=== PATIENT | female | born 1975 | race Hispanic/Latino ===

== ENCOUNTER 2018-05-21 14:24 | Emergency (ER) | payer SELFPAY ==
[2018-05-21] MEDS ORDERED: HYDROCODONE/APAP 5/325 MG TAB ONE (14:51)
[2018-05-21] MEDS ORDERED: ACETAMINOPHEN 325 MG TABLET ONE (14:52)
[2018-05-21 15:04] LABS: Urine Blood 1+ (NEG); Urine Glucose NEGATIVE (NEG); Urine Protein 1+ (NEG)
[2018-05-21 15:13] LABS: Urine Bacteria <20 /HPF (<20); Urine Culture Reflex Order NOT NEEDED; Urine RBC <5 /HPF (NONE SEEN)
[2018-05-21] MEDS ORDERED: NA CHLORIDE 0.9% 1,000 ML ONE (15:31)
[2018-05-21] MEDS ORDERED: DEXAMETHASONE 10 MG/ML VIAL ONE (15:41)
[2018-05-21] MEDS ORDERED: PEN G BENZ LA 1.2MU/2ML SYRINGE IM ONE (15:42)
[2018-05-21] MEDS ORDERED: ONDANSETRON 4 MG/2 ML VIAL ONE (15:50)
--- NOTE | 2018-05-21 17:53 | ER ---
Nurse's Notes [facility] Name: Gifty Singletary Age: 43 yrs Sex: Female : 1975 Arrival Date: 05/21/2018 Time: 14:27 Bed 6 Private MD: None, None Diagnosis: Streptococcal tonsillitis;Dehydration Presentation: 05/21 14:36 Presenting complaint: Patient states: I have had a really had sore throat, back pain, la1 headache, dry mouth, and nausea since yesterday. Transition of care: patient was not received from another setting of care. Onset of symptoms was May 21, 2018. Risk Assessment: Do you want to hurt yourself or someone else? Patient reports no desire to harm self or others. Initial Sepsis Screen: Does the patient meet any 2 criteria?. Care prior to arrival: None. 14:36 Method Of Arrival: Ambulatory la1 14:36 Acuity: ODILIA 2 la1 14:50 Initial Sepsis Screen: Does the patient have a suspected source of infection? Yes: sv Other: sore throat. Historical: - Allergies: 14:35 No Known Allergies; la1 - PMHx: 14:35 Asthma; la1 - Immunization history:: Adult Immunizations up to date. - Social history:: Smoking status: Patient/guardian denies using tobacco. - Ebola Screening: : No symptoms or risks identified at this time. - Family history:: not pertinent. - Hospitalizations: : No recent hospitalization is reported. Screenin:50 Abuse screen: Denies threats or abuse. Denies injuries from another. Nutritional sv screening: No deficits noted. Tuberculosis screening: No symptoms or risk factors identified. Fall Risk None identified. Assessment: 14:50 General: Appears in no apparent distress. uncomfortable, obese, well developed, sv Behavior is calm, cooperative, appropriate for age. Pain: Complains of pain in left aspect of posterior pharynx and right aspect of posterior pharynx Pain currently is 5 out of 10 on a pain scale. Neuro: Level of Consciousness is awake, alert, obeys commands, Oriented to person, place, time, situation, Moves all extremities. Full function Gait is steady, Speech is normal. Respiratory: Respiratory effort is even, unlabored, Respiratory pattern is regular, symmetrical. EENT: Oral mucosa is moist. Throat has patchy exudate has enlarged tonsils bilaterally. Derm: Skin temperature is hot. 15:41 Reassessment: Patient appears in no apparent distress at this time. Patient and/or sv family updated on plan of care and expected duration. Pain level reassessed. Patient is alert, oriented x 3, equal unlabored respirations, skin warm/dry/pink. GI: Reports nausea. 15:57 Reassessment: Patient appears in no apparent distress at this time. Patient and/or sv family updated on plan of care and expected duration. Pain level reassessed. Patient is alert, oriented x 3, equal unlabored respirations, skin warm/dry/pink. GI: Patient currently denies nausea. 17:30 Reassessment: Patient appears in no apparent distress at this time. Patient and/or jl7 family updated on plan of care and expected duration. Pain level reassessed. Patient is alert, oriented x 3, equal unlabored respirations, skin warm/dry/pink. Vital Signs: 14:35 Pulse 137; Resp 18; Temp 103.3(O); Pulse Ox 99% on R/A; Weight 108.86 kg; Height 5 ft. la1 3 in. (160.02 cm); 14:37 BP 133 / 85; la1 15:56 BP 123 / 55; Pulse 104; Resp 20; Temp 99.9(O); Pulse Ox 94% on R/A; sv 18:13 BP 125 / 80; Pulse 90; Resp 16 S; Temp 98.7(O); Pulse Ox 99% on R/A; jl7 14:35 Body Mass Index 42.51 (108.86 kg, 160.02 cm) la1 ED Course: 14:27 Patient arrived in ED. mr 14:27 None, None is Private Physician. mr 14:35 Arm band placed on left wrist. la1 14:37 Triage completed. la1 14:41 Meliton Mendieta MD is Attending Physician. rn 14:45 Diane Cruz, SHAHID is Primary Nurse. sv 14:50 Patient has correct armband on for positive identification. Bed in low position. Call sv light in reach. Door closed. Head of bed elevated. 14:54 EKG done, by java technical architect. reviewed by Meliton Mendieta MD. dt2 15:30 Inserted saline lock: 20 gauge in right antecubital area, using aseptic technique. sv Flushed right antecubital with 5 ml normal saline. 18:13 No provider procedures requiring assistance completed. IV discontinued, intact, jl7 bleeding controlled, No redness/swelling at site. Pressure dressing applied. Administered Medications: 14:45 Drug: [place] 5 mg-325 mg 1 tabs Route: PO; la1 15:24 Follow up: Response: No adverse reaction sv 14:45 Drug: Tylenol 650 mg Route: PO; la1 15:24 Follow up: Response: No adverse reaction sv 15:30 Drug: NS 0.9% 1000 ml Route: IV; Rate: 1000 ml; Site: right antecubital; sv 16:30 Follow up: IV Status: Completed infusion jl7 15:35 Drug: Bicillin L-A 1.2 million units Route: IM; Site: left gluteus; sv 16:00 Follow up: Response: No adverse reaction jl7 15:35 Drug: Decadron - Dexamethasone 10 mg Route: IVP; Site: right antecubital; sv 16:00 Follow up: Response: No adverse reaction 7 15:43 Drug: Zofran 4 mg Route: IVP; Site: right antecubital; sv 16:15 Follow up: Response: No adverse reaction; Nausea is decreased jl7 Outcome: 17:52 Discharge ordered by . rn 18:13 Discharged to home ambulatory. jl7 18:13 Condition: stable 18:13 Discharge instructions given to patient, Instructed on discharge instructions, follow up and referral plans. Demonstrated understanding of instructions, follow-up care. 18:15 Patient left the ED. jl7 Signatures: Diane Cruz RN RN sv Rivera, Mary mr Nieto, Roman, MD MD rn Attema, Lee, RN RN la1 Leal, Jahala, RN RN jl7 Teague, Danielle dt2
--- NOTE | 2018-05-21 17:53 | EDPHYS ---
Physician Documentation [facility] Name: Gifty Singletary Age: 43 yrs Sex: Female : 1975 Arrival Date: 05/21/2018 Time: 14:27 Bed 6 Private MD: None, None ED Physician Meliton Mendieta HPI: 05/21 14:49 This 43 yrs old Female presents to ER via Ambulatory with complaints of Flu rn Symptoms. 14:49 The patient presents with sore throat. The patient describes throat pain as dry, raw, rn scratchy. Onset: The symptoms/episode began/occurred yesterday. Severity of symptoms: At their worst the symptoms were moderate, in the emergency department the symptoms are unchanged. Modifying factors: The symptoms are alleviated by nothing, the symptoms are aggravated by swallowing. Associated signs and symptoms: Pertinent positives: fever, flu-like symptoms, rhinorrhea, Sore throat. The patient has not experienced similar symptoms in the past. The patient has not recently seen a physician. REports began yesterday with fever, sore throat, runny nose, chills, myalgias, not eating/drinking because throat feels raw. . Historical: - Allergies: 14:35 No Known Allergies; la1 - PMHx: 14:35 Asthma; la1 - Immunization history:: Adult Immunizations up to date. - Social history:: Smoking status: Patient/guardian denies using tobacco. - Ebola Screening: : No symptoms or risks identified at this time. - Family history:: not pertinent. - Hospitalizations: : No recent hospitalization is reported. ROS: 14:49 Constitutional: + fever/chills Eyes: Negative for injury, pain, redness, and discharge, turning sander tender: + sore throat and runny nose Neck: + sore throat Cardiovascular: Negative for chest pain, edema, Respiratory: + cough Abdomen/GI: Negative for abdominal pain, vomiting, diarrhea, and constipation, MS/Extremity: Negative for injury and deformity, Skin: Negative for injury, rash, and discoloration, Neuro: Negative for weakness, numbness, tingling, and seizure. Exam: 14:49 Constitutional: This is a well developed, well nourished patient who is awake, alert, rn and in no acute distress. Ambulatory to room and bathroom. Head/Face: Normocephalic, atraumatic. Eyes: Pupils equal round and reactive to light, extra-ocular motions intact. Lids and lashes normal. Conjunctiva and sclera are non-icteric and not injected. Cornea within normal limits. Periorbital areas with no swelling, redness, or edema. ENT: + pharyngeal erythema with tonsillar swelling and exudate, no stridor, + dry MM. Neck: Trachea midline, Supple, full range of motion without nuchal rigidity, or vertebral point tenderness. No Meningismus. + tender bilateral cervical LAD Cardiovascular: tachycardic, regular, normal S1 and S2. No pulse deficits. Respiratory: Lungs have equal breath sounds bilaterally, clear to auscultation Neuro: Awake and alert, GCS 15, oriented to person, place, time, and situation. Cranial nerves II-XII grossly intact. Motor strength 5/5 in all extremities. Sensory grossly intact. Cerebellar exam normal. Normal gait. Vital Signs: 14:35 Pulse 137; Resp 18; Temp 103.3(O); Pulse Ox 99% on R/A; Weight 108.86 kg; Height 5 ft. la1 3 in. (160.02 cm); 14:37 BP 133 / 85; la1 15:56 BP 123 / 55; Pulse 104; Resp 20; Temp 99.9(O); Pulse Ox 94% on R/A; sv 18:13 BP 125 / 80; Pulse 90; Resp 16 S; Temp 98.7(O); Pulse Ox 99% on R/A; jl7 14:35 Body Mass Index 42.51 (108.86 kg, 160.02 cm) la1 MDM: 14:41 Patient medically screened. rn 17:51 Differential diagnosis: group A strep tonsillitis, influenza, laryngitis, pharyngitis. rn Data reviewed: vital signs, nurses notes, lab test result(s), and as a result, I will discharge patient. Counseling: I had a detailed discussion with the patient and/or guardian regarding: the historical points, exam findings, and any diagnostic results supporting the discharge/admit diagnosis, lab results, the need for outpatient follow up, to return to the emergency department if symptoms worsen or persist or if there are any questions or concerns that arise at home. Response to treatment: the patient's symptoms have markedly improved after treatment, and as a result, I will discharge patient. Special discussion: I discussed with the patient/guardian in detail that at this point there is no indication for admission to the hospital. It is understood, however, that if the symptoms persist or worsen the patient needs to return immediately for re-evaluation. 05/21 14:37 Order name: Strep; Complete Time: 15:23 snw 05/21 14:37 Order name: Flu; Complete Time: 15:23 snw 05/21 14:37 Order name: Urine Culture snw 05/21 14:37 Order name: Urine Microscopic Only; Complete Time: 15:23 snw 05/21 14:53 Order name: Urine Dipstick--Ancillary (enter results); Complete Time: 15:23 lt1 05/21 14:54 Order name: Urine --Ancillary (enter results); Complete Time: 15:23 lt1 05/21 14:37 Order name: Urine Dipstick-Ancillary (obtain specimen); Complete Time: 15:24 snw 05/21 14:41 Order name: EKG; Complete Time: 14:42 hb 05/21 14:41 Order name: EKG - Nurse/Tech; Complete Time: 15:24 hb 05/21 14:47 Order name: IV Start; Complete Time: 15:45 rn Administered Medications: 14:45 Drug: [place] 5 mg-325 mg 1 tabs Route: PO; la1 15:24 Follow up: Response: No adverse reaction sv 14:45 Drug: Tylenol 650 mg Route: PO; la1 15:24 Follow up: Response: No adverse reaction sv 15:30 Drug: NS 0.9% 1000 ml Route: IV; Rate: 1000 ml; Site: right antecubital; sv 16:30 Follow up: IV Status: Completed infusion jl7 15:35 Drug: Bicillin L-A 1.2 million units Route: IM; Site: left gluteus; sv 16:00 Follow up: Response: No adverse reaction jl7 15:35 Drug: Decadron - Dexamethasone 10 mg Route: IVP; Site: right antecubital; sv 16:00 Follow up: Response: No adverse reaction jl7 15:43 Drug: Zofran 4 mg Route: IVP; Site: right antecubital; sv 16:15 Follow up: Response: No adverse reaction; Nausea is decreased jl7 Disposition: 05/21/18 17:52 Discharged to Home. Impression: Streptococcal tonsillitis, Dehydration. - Condition is Stable. - Discharge Instructions: Dehydration, Adult, Strep Throat. - Work release form, Medication Reconciliation Form, Thank You Letter, Antibiotic Education, Prescription Opioid Use form. - Follow up: Private Physician; When: As needed; Reason: Recheck today's complaints, Re-evaluation by your physician. - Problem is new. - Symptoms have improved. Signatures: Dispatcher [employer] EDMS Diane Cruz, RN RN Ana Laura Hou, ETL MANAGER-C ETL MANAGER-Csnw Meliton Mendieta MD MD rn Attema, Zheng RN RN la1 Nadja Pro, RN RN hb Shana Richardson, RN RN jl7 Corrections: (The following items were deleted from the chart) 17:52 17:52 05/21/2018 17:52 Discharged to Home. Impression: Streptococcal tonsillitis. rn Condition is Stable. Forms are Work release form, Medication Reconciliation Form, Thank You Letter, Antibiotic Education, Prescription Opioid Use. Follow up: Private Physician; When: As needed; Reason: Recheck today's complaints, Re-evaluation by your physician. Problem is new. Symptoms have improved. rn 18:15 17:52 05/21/2018 17:52 Discharged to Home. Impression: Streptococcal tonsillitis; jl7 Dehydration. Condition is Stable. Forms are Work release form, Medication Reconciliation Form, Thank You Letter, Antibiotic Education, Prescription Opioid Use. Follow up: Private Physician; When: As needed; Reason: Recheck today's complaints, Re-evaluation by your physician. Problem is new. Symptoms have improved. rn
--- NOTE | 2018-05-21 18:05 | EKG ---
Test Date: 2018-05-21 Test Time: 14:46:34 Ug Designer: LAMINE MEASUREMENT RESULTS: Intervals: Rate: 117 VA: 136 QRSD: 76 QT: 308 QTc: 429 [place]: P: 59 VA: 136 QRS: -11 T: 55 INTERPRETIVE STATEMENTS: Sinus tachycardia Otherwise normal ECG No previous ECG available for comparison Electronically Signed On 05-21-18 18:04:43 ELECTRICIAN MACHINE SHOP by Efe Benoit
== END 2018-05-21 18:15 | disposition home or self-care (01) ==
LOC: ER 14:24
DX: J03.00 Acute streptococcal tonsillitis, unspecified (principal); E86.0 Dehydration
CPT/HCPCS: 81003; 81015; 81025; 87081; 87086; 87088; 87804; 93005; 96361; 96372; 96374; 96375; 99284; J0561; J1100; J2405; J7030

== ENCOUNTER 2018-07-02 19:22 | Emergency (ER) | payer SELFPAY ==
--- OUTSIDE RECORDS SUMMARY | 2018-07-02 19:23 | XMS REPORT ---
:1975 Author [facility] Address [address] [place] [address] Dr. Mike. [address] [place] [id number] Care Team Providers Name Role Phone Unavailable Unavailable Unavailable Problems This patient has no known problems. Allergies, Adverse Reactions, Alerts This patient has no known allergies or adverse reactions. Medications This patient has no known medications.
--- NOTE | 2018-07-02 20:37 | RAD REPORT ---
EXAM DESCRIPTION: RAD - Chest Pa And Lat (2 Views) - 07/02/2018 8:22 pm CLINICAL HISTORY: CHEST PAIN Chest pain. COMPARISON: <Comparisons> FINDINGS: The lungs are clear. The heart is normal in size. No displaced fractures. IMPRESSION: No acute or concerning finding suspected.
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
[2018-07-02] MEDS ORDERED: HYDROCODONE/APAP 5/325 MG TAB ONE (21:28)
[2018-07-02] MEDS ORDERED: CYCLOBENZAPRINE 10 MG TAB ONE (21:28)
[2018-07-02] MEDS ORDERED: IBUPROFEN 200 MG TAB PO ONE (21:28)
== END 2018-07-02 21:31 | disposition home or self-care (01) ==
LOC: ER 19:22
DX: S29.011A Strain of muscle and tendon of front wall of thorax, initial encounter (principal); V49.40XA Driver injured in collision with unspecified motor vehicles in traffic accident, initial encounter; J45.909 Unspecified asthma, uncomplicated
CPT/HCPCS: 71046; 99284

== ENCOUNTER 2019-01-08 14:17 | Emergency (ER) | payer SELFPAY ==
--- OUTSIDE RECORDS SUMMARY | 2019-01-08 14:20 | XMS REPORT ---
:1975 [facility] Address [address] [place] [address] Dr. Sepulveda [address] [place] [id number] Care Team Providers Name Role Phone Unavailable Unavailable Unavailable Problems This patient has no known problems. Allergies, Adverse Reactions, Alerts This patient has no known allergies or adverse reactions. Medications This patient has no known medications.
--- NOTE | 2019-01-08 14:47 | EDPHYS ---
Physician Documentation [facility] Name: Gifty Singletary Age: 43 yrs Sex: Female : 1975 Arrival Date: 01/08/2019 Time: 14:23 Bed 10 Private MD: ED Physician Vineet Reed HPI: 01/08 14:56 This 43 yrs old Female presents to ER via Ambulatory with complaints of Ear kb Problem. 14:56 The patient presents with a fullness, hearing loss. The complaints affect the right kb ear. Onset: The symptoms/episode began/occurred this morning. Modifying factors: The symptoms are alleviated by nothing, the symptoms are aggravated by nothing. Associated signs and symptoms: The patient has no apparent associated signs or symptoms. Severity of symptoms: At their worst the symptoms were moderate in the emergency department the symptoms are unchanged. The patient has experienced a previous episode, last week. The patient has not recently seen a physician. Pt reports she woke up with decreased hearing and fullness to right ear. This happened last week as well, but cleared up on its own. Has used q-tips trying to clean out her ear with no relief. Historical: - Allergies: 14:26 No Known Allergies; la1 - PMHx: 14:26 Asthma; la1 - Immunization history:: Adult Immunizations up to date. - Social history:: Smoking status: Patient/guardian denies using tobacco. - Ebola Screening: : No symptoms or risks identified at this time. ROS: 14:54 Constitutional: Negative for fever, chills, and weight loss, Neck: Negative for injury, kb pain, and swelling, Cardiovascular: Negative for chest pain, palpitations, and edema, Respiratory: Negative for shortness of breath, cough, wheezing, and pleuritic chest pain, Abdomen/GI: Negative for abdominal pain, nausea, vomiting, diarrhea, and constipation, MS/Extremity: Negative for injury and deformity, Skin: Negative for injury, rash, and discoloration, Neuro: Negative for headache, weakness, numbness, tingling, and seizure. 14:54 ENT: Positive for fullness/decreased hearing right ear, Negative for drainage from ear(s), ear pain. Exam: 14:54 Constitutional: This is a well developed, well nourished patient who is awake, alert, kb and in no acute distress. Head/Face: Normocephalic, atraumatic. Neck: Trachea midline, no thyromegaly or masses palpated, and no cervical lymphadenopathy. Supple, full range of motion without nuchal rigidity, or vertebral point tenderness. No Meningismus. Chest/axilla: Normal chest wall appearance and motion. Nontender with no deformity. No lesions are appreciated. Cardiovascular: Regular rate and rhythm with a normal S1 and S2. No gallops, murmurs, or rubs. Normal PMI, no JVD. No pulse deficits. Respiratory: Lungs have equal breath sounds bilaterally, clear to auscultation and percussion. No rales, rhonchi or wheezes noted. No increased work of breathing, no retractions or nasal flaring. Abdomen/GI: Soft, non-tender, with normal bowel sounds. No distension or tympany. No guarding or rebound. No evidence of tenderness throughout. Skin: Warm, dry with normal turgor. Normal color with no rashes, no lesions, and no evidence of cellulitis. MS/ Extremity: Pulses equal, no cyanosis. Neurovascular intact. Full, normal range of motion. Neuro: Awake and alert, GCS 15, oriented to person, place, time, and situation. Cranial nerves II-XII grossly intact. Motor strength 5/5 in all extremities. Sensory grossly intact. Cerebellar exam normal. Normal gait. 14:54 ENT: External ear(s): are unremarkable, Ear canal(s): cerumen impaction, that is moderate, that is hard, occluding the right ear canal, TM's: not visable, because of cerumen, Examination of the other ear shows no obvious abnormality. Vital Signs: 14:26 BP 150 / 98; Pulse 81; Resp 16; Temp 98.7; Pulse Ox 98% ; Weight 104.33 kg; Height 5 la1 ft. 3 in. (160.02 cm); 14:26 Body Mass Index 40.74 (104.33 kg, 160.02 cm) la1 MDM: 14:28 Patient medically screened. kb 14:55 Data reviewed: vital signs, nurses notes. Data interpreted: Pulse oximetry: on room air kb is 98 %. Interpretation: normal. Counseling: I had a detailed discussion with the patient and/or guardian regarding: the historical points, exam findings, and any diagnostic results supporting the discharge/admit diagnosis, the need for outpatient follow up, an ENT specialist, to return to the emergency department if symptoms worsen or persist or if there are any questions or concerns that arise at home. Administered Medications: No medications were administered Disposition: 01/08/19 14:47 Discharged to Home. Impression: Impacted cerumen, left ear. - Condition is Stable. - Discharge Instructions: Earwax Buildup, Adult. - Medication Reconciliation Form, Thank You Letter, Antibiotic Education, Prescription Opioid Use form. - Follow up: Emergency Department; When: As needed; Reason: Worsening of condition. Follow up: Private Physician; When: 2 - 3 days; Reason: Recheck today's complaints, Continuance of care, Re-evaluation by your physician. Addendum: 01/10/2019 09:33 Co-signature as Attending Physician, Vineet Reed MD I agree with the assessment and c regalado plan of care. Signatures: Jennifer Michel, GOLD MINER BLASTING-C GOLD MINER BLASTING-Ckb Vineet Reed MD MD cha Attema, Lee RN RN la1 Corrections: (The following items were deleted from the chart) 01/08 14:56 14:54 ENT: Positive for ear pain, kb 14:57 14:54 ENT: Positive for fullness/decreased hearing left ear, Negative for drainage from kb ear(s), ear pain, kb 14:57 14:54 ENT: External ear(s): are unremarkable, Ear canal(s): cerumen impaction, that is kb moderate, that is hard, occluding the left ear canal, TM's: not visable, because of cerumen, Examination of the other ear shows no obvious abnormality, kb 15:00 14:47 01/08/2019 14:47 Discharged to Home. Impression: Impacted cerumen, left ear. la1 Condition is Stable. Forms are Medication Reconciliation Form, Thank You Letter, Antibiotic Education, Prescription Opioid Use. Follow up: Emergency Department; When: As needed; Reason: Worsening of condition. Follow up: Private Physician; When: 2 - 3 days; Reason: Recheck today's complaints, Continuance of care, Re-evaluation by your physician. kb
--- NOTE | 2019-01-08 14:47 | ER ---
Nurse's Notes [facility] Name: Gifty Singletary Age: 43 yrs Sex: Female : 1975 Arrival Date: 01/08/2019 Time: 14:23 Bed 10 Private MD: Diagnosis: Impacted cerumen, left ear Presentation: 01/08 14:25 Presenting complaint: Patient states: I woke up this morning and my right ear feels la1 full and like I cannot hear out of it. Transition of care: patient was not received from another setting of care. Onset of symptoms was January 08, 2019. Risk Assessment: Do you want to hurt yourself or someone else? Patient reports no desire to harm self or others. Initial Sepsis Screen: Does the patient meet any 2 criteria? No. Patient's initial sepsis screen is negative. Does the patient have a suspected source of infection? No. Patient's initial sepsis screen is negative. Care prior to arrival: None. 14:25 Method Of Arrival: Ambulatory la1 14:25 Acuity: ODILIA 5 la1 Historical: - Allergies: 14:26 No Known Allergies; la1 - PMHx: 14:26 Asthma; la1 - Immunization history:: Adult Immunizations up to date. - Social history:: Smoking status: Patient/guardian denies using tobacco. - Ebola Screening: : No symptoms or risks identified at this time. Screenin:26 Abuse screen: Denies threats or abuse. Nutritional screening: No deficits noted. la1 Tuberculosis screening: No symptoms or risk factors identified. Fall Risk None identified. Assessment: 14:26 General: Appears in no apparent distress. Behavior is calm, cooperative. Pain: Denies la1 pain. Neuro: Level of Consciousness is awake, alert, obeys commands. Cardiovascular: Capillary refill < 3 seconds Patient's skin is warm and dry. Respiratory: Airway is patent Respiratory effort is even, unlabored. GI: No signs and/or symptoms were reported involving the gastrointestinal system. : No signs and/or symptoms were reported regarding the genitourinary system. EENT: Reports decreased hearing in right ear. 14:59 Reassessment: right ear irrigated with warm water and peroxide. Copious ear wax la1 drainage. Visualized TM after procedure and was intact. Vital Signs: 14:26 BP 150 / 98; Pulse 81; Resp 16; Temp 98.7; Pulse Ox 98% ; Weight 104.33 kg; Height 5 la1 ft. 3 in. (160.02 cm); 14:26 Body Mass Index 40.74 (104.33 kg, 160.02 cm) la1 ED Course: 14:23 Patient arrived in ED. as 14:25 Triage completed. la1 14:25 Jennifer Michel FNP-C is [facility]. kb 14:25 Vineet Reed MD is Attending Physician. kb 14:26 Arm band placed on right wrist. la1 14:26 Call light in reach. Side rails up X 1. la1 14:59 Zheng Deluna, RN is Primary Nurse. la1 15:00 No provider procedures requiring assistance completed. Patient did not have IV access la1 during this emergency room visit. Administered Medications: No medications were administered Outcome: 14:47 Discharge ordered by . kb 15:00 Discharged to home ambulatory. la1 15:00 Condition: stable 15:00 Discharge instructions given to patient, Instructed on discharge instructions, follow up and referral plans. Demonstrated understanding of instructions, follow-up care. 15:00 Patient left the ED. la1 Signatures: Jennifer Michel FNP-C FNP-Meggan Damon as Zheng Deluna, RN RN la1
== END 2019-01-08 15:00 | disposition home or self-care (01) ==
LOC: ER 14:17
DX: H61.21 Impacted cerumen, right ear (principal); J45.909 Unspecified asthma, uncomplicated
CPT/HCPCS: 99281

== ENCOUNTER 2019-05-26 17:16 | Emergency (ER) | payer SELFPAY ==
--- OUTSIDE RECORDS SUMMARY | 2019-05-26 17:19 | XMS REPORT ---
:1975 [facility] Address [address] [place] [address] Dr. Sepulveda [address] [place] [id number] Care Team Providers Name Role Phone Unavailable Unavailable Unavailable Problems This patient has no known problems. Allergies, Adverse Reactions, Alerts This patient has no known allergies or adverse reactions. Medications This patient has no known medications.
--- NOTE | 2019-05-26 20:07 | ER ---
Nurse's Notes [facility] Name: Gifty Singletary Age: 44 yrs Sex: Female : 1975 Arrival Date: 05/26/2019 Time: 17:21 Bed 25 Private MD: Diagnosis: Acute pharyngitis Presentation: 05/26 17:57 Presenting complaint: Patient states: fever X 3 days, swelling to neck, sore throat iw yesterday. Transition of care: patient was not received from another setting of care. Onset of symptoms was May 24, 2019. Risk Assessment: Do you want to hurt yourself or someone else? Patient reports no desire to harm self or others. Initial Sepsis Screen: Does the patient meet any 2 criteria? No. Patient's initial sepsis screen is negative. Does the patient have a suspected source of infection? No. Patient's initial sepsis screen is negative. Care prior to arrival: None. 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 - Social history:: Smoking status: Patient/guardian denies using tobacco. - Ebola Screening: : Patient negative for fever greater than or equal to 101.5 degrees Fahrenheit, and additional compatible Ebola Virus Disease symptoms Patient denies exposure to infectious person Patient denies travel to an Ebola-affected area in the 21 days before illness onset No symptoms or risks identified at this time. Screenin:15 Abuse screen: Denies threats or abuse. Denies injuries from another. Nutritional ca1 screening: No deficits noted. Tuberculosis screening: No symptoms or risk factors identified. Fall Risk None identified. Assessment: 18:15 General: Appears in no apparent distress. comfortable, Behavior is calm, cooperative, ca1 appropriate for age. General: Reports fever for 2-3 days. Pain: Complains of pain in neck Pain currently is 8 out of 10 on a pain scale. Pain began 1 day ago. Neuro: Level of Consciousness is awake, alert, obeys commands, Oriented to person, place, time, situation. Cardiovascular: Heart tones S1 S2 present Capillary refill < 3 seconds Patient's skin is warm and dry. Respiratory: Airway is patent Respiratory effort is even, unlabored, Respiratory pattern is regular, symmetrical, Breath sounds are clear bilaterally. Respiratory: Reports cough that is since yesterday. GI: Abdomen is round non-distended, Bowel sounds present X 4 quads. Abd is soft and non tender X 4 quads. : No deficits noted. No signs and/or symptoms were reported regarding the genitourinary system. EENT: Throat is pink bilaterally Reports nasal discharge that is watery since yesterday. Derm: Skin is intact, is healthy with good turgor, Skin is pink, warm \T\ dry. Musculoskeletal: Circulation, motion, and sensation intact. Capillary refill < 3 seconds, Range of motion: intact in all extremities. 19:16 Reassessment: Patient appears in no apparent distress at this time. Patient is alert, ca1 oriented x 3, equal unlabored respirations, skin warm/dry/pink. 20:20 Reassessment: Patient appears in no apparent distress at this time. Patient is alert, ca1 oriented x 3, equal unlabored respirations, skin warm/dry/pink. Vital Signs: 17:58 BP 129 / 64; Pulse 83; Resp 16; Temp 98.3; Pulse Ox 96% on R/A; Weight 92.53 kg; Height iw 5 ft. 3 in. (160.02 cm); Pain 9/10; 20:20 BP 131 / 71; Pulse 81; Resp 16 S; Temp 97.9(O); Pulse Ox 100% ; ca1 17:58 Body Mass Index 36.14 (92.53 kg, 160.02 cm) iw ED Course: 17:21 Patient arrived in ED. am2 17:53 Jennifer Michel FNP-C [facility]. kb 17:53 Meliton Mendieta MD is Attending Physician. kb 17:55 Strep swab sent to lab. ca1 17:57 Triage completed. iw 18:14 Arm band placed on right wrist. ca1 18:15 No provider procedures requiring assistance completed. ca1 18:15 Patient has correct armband on for positive identification. Bed in low position. Call ca1 light in reach. Side rails up X 1. Pulse ox on. NIBP on. Warm blanket given. 18:16 Acob, Lynette, RN is Primary Nurse. ca1 19:10 Strep Sent. ca1 19:11 Flu Sent. ca1 19:11 Flu and/or RSV swab sent to lab. ca1 20:21 Patient did not have IV access during this emergency room visit. ca1 Administered Medications: No medications were administered Outcome: 20:07 Discharge ordered by . kb 20:21 Discharged to home ambulatory. ca1 20:21 Condition: stable 20:21 Discharge instructions given to patient, Instructed on discharge instructions, follow up and referral plans. Demonstrated understanding of instructions, follow-up care. 20:22 Patient left the ED. ca1 Signatures: Jennifer Michel, BIOINFORMATICS TECHNICIAN-C BIOINFORMATICS TECHNICIAN-Ckb Dayna Rodríguez, SHAHID RN Shelia Deal 2 Lynette Mcgrath, RN RN ca1
--- NOTE | 2019-05-26 20:08 | EDPHYS ---
Physician Documentation [facility] Name: Gifty Singletary Age: 44 yrs Sex: Female : 1975 Arrival Date: 05/26/2019 Time: 17:21 Bed 25 Private MD: ED Physician Meliton Mendieta HPI: 05/26 19:58 This 44 yrs old Female presents to ER via Ambulatory with complaints of Sore kb Throat, Neck Swelling, Difficulty Swallowing, Fever. 19:58 The patient presents with sore throat. The patient describes throat pain as constant. kb Onset: The symptoms/episode began/occurred today. Severity of symptoms: At their worst the symptoms were moderate, in the emergency department the symptoms are unchanged. Modifying factors: The symptoms are alleviated by nothing, the symptoms are aggravated by swallowing, Patient's oral intake status: good. Associated signs and symptoms: Pertinent positives: chills, fever, rhinorrhea, Sore throat. The patient has not experienced similar symptoms in the past. The patient has not recently seen a physician. Pt reports fever for 3 days, sore throat started today. [employer]: 17:58 LMP N/A - Irregular menses iw Historical: - Allergies: 17:58 No Known Allergies; iw - Home Meds: 17:58 None [Active]; iw - PMHx: 17:58 Asthma; iw - PSHx: 17:58 Cholecystectomy; iw - Immunization history:: Adult Immunizations not up to date. - Social history:: Smoking status: Patient/guardian denies using tobacco. - Ebola Screening: : Patient negative for fever greater than or equal to 101.5 degrees Fahrenheit, and additional compatible Ebola Virus Disease symptoms Patient denies exposure to infectious person Patient denies travel to an Ebola-affected area in the 21 days before illness onset No symptoms or risks identified at this time. ROS: 19:57 Constitutional: Negative for fever, chills, and weight loss, Neck: Negative for injury, kb pain, and swelling, Cardiovascular: Negative for chest pain, palpitations, and edema, Respiratory: Negative for shortness of breath, cough, wheezing, and pleuritic chest pain, Abdomen/GI: Negative for abdominal pain, nausea, vomiting, diarrhea, and constipation, Back: Negative for injury and pain, MS/Extremity: Negative for injury and deformity, Skin: Negative for injury, rash, and discoloration, Neuro: Negative for headache, weakness, numbness, tingling, and seizure. 19:57 ENT: Positive for rhinorrhea, sore throat. Exam: 19:57 Constitutional: This is a well developed, well nourished patient who is awake, alert, kb and in no acute distress. Head/Face: Normocephalic, atraumatic. ENT: Nares patent. No nasal discharge, no septal abnormalities noted. Tympanic membranes are normal and external auditory canals are clear. Oropharynx with no redness, swelling, or masses, exudates, or evidence of obstruction, uvula midline. Mucous membranes moist. Neck: Trachea midline, no thyromegaly or masses palpated, and no cervical lymphadenopathy. Supple, full range of motion without nuchal rigidity, or vertebral point tenderness. No Meningismus. Chest/axilla: Normal chest wall appearance and motion. Nontender with no deformity. No lesions are appreciated. Cardiovascular: Regular rate and rhythm with a normal S1 and S2. No gallops, murmurs, or rubs. Normal PMI, no JVD. No pulse deficits. Respiratory: Lungs have equal breath sounds bilaterally, clear to auscultation and percussion. No rales, rhonchi or wheezes noted. No increased work of breathing, no retractions or nasal flaring. Abdomen/GI: Soft, non-tender, with normal bowel sounds. No distension or tympany. No guarding or rebound. No evidence of tenderness throughout. Skin: Warm, dry with normal turgor. Normal color with no rashes, no lesions, and no evidence of cellulitis. MS/ Extremity: Pulses equal, no cyanosis. Neurovascular intact. Full, normal range of motion. Neuro: Awake and alert, GCS 15, oriented to person, place, time, and situation. Cranial nerves II-XII grossly intact. Motor strength 5/5 in all extremities. Sensory grossly intact. Cerebellar exam normal. Normal gait. Vital Signs: 17:58 BP 129 / 64; Pulse 83; Resp 16; Temp 98.3; Pulse Ox 96% on R/A; Weight 92.53 kg; Height iw 5 ft. 3 in. (160.02 cm); Pain 9/10; 20:20 BP 131 / 71; Pulse 81; Resp 16 S; Temp 97.9(O); Pulse Ox 100% ; ca1 17:58 Body Mass Index 36.14 (92.53 kg, 160.02 cm) iw MDM: 18:16 Patient medically screened. kb 19:57 Data reviewed: vital signs, nurses notes. Data interpreted: Pulse oximetry: on room air kb is 96 %. Interpretation: normal. 20:06 Counseling: I had a detailed discussion with the patient and/or guardian regarding: the kb historical points, exam findings, and any diagnostic results supporting the discharge/admit diagnosis, lab results, the need for outpatient follow up, a family practitioner, to return to the emergency department if symptoms worsen or persist or if there are any questions or concerns that arise at home. 05/26 17:53 Order name: Strep; Complete Time: 19:39 kb 05/26 18:49 Order name: Flu; Complete Time: 20:06 kb 05/26 19:40 Order name: Throat Culture EDMS Administered Medications: No medications were administered Disposition: 05/27 05:55 Co-signature as Attending Physician, Meliton Mendieta MD I agree with the assessment and rn plan of care. Disposition: 05/26/19 20:07 Discharged to Home. Impression: Acute pharyngitis. - Condition is Stable. - Discharge Instructions: Pharyngitis, [id number], Sore Throat, [id number]. - Medication Reconciliation Form, Thank You Letter, Antibiotic Education, Prescription Opioid Use form. - Follow up: Emergency Department; When: As needed; Reason: Worsening of condition. Follow up: Private Physician; When: 2 - 3 days; Reason: Recheck today's complaints, Continuance of care, Re-evaluation by your physician. Signatures: Dispatcher [employer] EDMS Jennifer Michel, JOSE-C [employer] MANAGER-Ckb Dayna Rodríguez, RN RN Meliton Paris MD MD rn Acob, Lynette RN RN ca1 Corrections: (The following items were deleted from the chart) 05/26 20:22 20:07 05/26/2019 20:07 Discharged to Home. Impression: Acute pharyngitis. Condition is ca1 Stable. Forms are Medication Reconciliation Form, Thank You Letter, Antibiotic Education, Prescription Opioid Use. Follow up: Emergency Department; When: As needed; Reason: Worsening of condition. Follow up: Private Physician; When: 2 - 3 days; Reason: Recheck today's complaints, Continuance of care, Re-evaluation by your physician. kb
[2019-05-26 21:46] VITALS: BP 131/71; TEMP 97.9; O2SAT 100
== END 2019-05-26 20:22 | disposition home or self-care (01) ==
LOC: ER 17:16
DX: J02.9 Acute pharyngitis, unspecified (principal)
CPT/HCPCS: 87070; 87081; 87804; 99283

== ENCOUNTER 2020-01-16 13:26 | Emergency (ER) | payer BC, SELFPAY ==
--- OUTSIDE RECORDS SUMMARY | 2020-01-16 13:51 | XMS REPORT | Continuity of Care Document ---
:1975 Author Organization [facility] t Address [address] [place] [address] [address] [place] [address] Care Team Providers Name Role Phone Unavailable Unavailable Unavailable Problems This patient has no known problems. Allergies, Adverse Reactions, Alerts This patient has no known allergies or adverse reactions. Medications This patient has no known medications. Procedures This patient has no known procedures. Results This patient has no known results.
--- NOTE | 2020-01-16 15:07 | ER ---
Nurse's Notes [facility] Name: Gifty Singletary Age: 44 yrs Sex: Female : 1975 Arrival Date: 01/16/2020 Time: 13:27 Bed 15 Private MD: Diagnosis: Acute pharyngitis;Acute lymphadenitis of face, head and neck Presentation: 01/15 13:44 Chief complaint: Patient states: Swollen L side of throat since Thursday. Coronavirus ca1 screen: Client denies travel out of the [place] in the last 14 days. At this time, the client does not indicate any symptoms associated with coronavirus-19. The client reports previous COVID testing was negative. Date of collection: December 15, 2019. Ebola Screen: Patient negative for fever greater than or equal to 101.5 degrees Fahrenheit, and additional compatible Ebola Virus Disease symptoms Patient denies exposure to infectious person. Patient denies travel to an Ebola-affected area in the 21 days before illness onset. No symptoms or risks identified at this time. Initial Sepsis Screen: Does the patient meet any 2 criteria? No. Patient's initial sepsis screen is negative. Does the patient have a suspected source of infection? No. Patient's initial sepsis screen is negative. Risk Assessment: Do you want to hurt yourself or someone else? Patient reports no desire to harm self or others. Onset of symptoms was January 16, 2020. 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 - Social history:: Smoking status: Patient denies any tobacco usage or history of. Screenin:50 Abuse screen: Denies threats or abuse. Nutritional screening: No deficits noted. tw2 Tuberculosis screening: No symptoms or risk factors identified. Fall Risk None identified. Assessment: 14:50 General: Appears in no apparent distress. obese, well groomed, Behavior is calm, tw2 cooperative, appropriate for age. Pain: Complains of pain in uvula, left aspect of posterior pharynx and right aspect of posterior pharynx. Neuro: Level of Consciousness is awake, alert, obeys commands, Oriented to person, place, time, situation. Cardiovascular: Patient's skin is warm and dry. Respiratory: Airway is patent Respiratory effort is even, unlabored, Breath sounds are clear bilaterally. GI: No signs and/or symptoms were reported involving the gastrointestinal system. Abdomen is round non-distended, obese. : No signs and/or symptoms were reported regarding the genitourinary system. EENT: Throat is reddened. Derm: No signs and/or symptoms reported regarding the dermatologic system. Musculoskeletal: Range of motion: intact in all extremities. 15:46 Reassessment: Patient appears in no apparent distress at this time. No changes from tw2 previously documented assessment. Patient and/or family updated on plan of care and expected duration. Pain level reassessed. Patient is alert, oriented x 3, equal unlabored respirations, skin warm/dry/pink. Vital Signs: 13:44 BP 112 / 64; Pulse 94; Resp 15 S; Temp 99.2(O); Pulse Ox 100% on R/A; Weight 90.72 kg ca1 (R); Height 5 ft. 3 in. (160.02 cm) (M); 13:44 Body Mass Index 35.43 (90.72 kg, 160.02 cm) ca1 ED Course: 13:27 Patient arrived in ED. as 13:46 Triage completed. ca1 13:46 Arm band placed on right wrist. ca1 13:48 Strep Sent. ca1 14:49 Nette Palomares, SHAHID is Primary Nurse. tw2 14:50 Placed in gown. Bed in low position. tw2 14:54 Flako Cortez PA is PHCP. jr8 14:54 Meliton Mendieta MD is Attending Physician. jr8 15:06 Diane Chamberlain MD is Referral Physician. jr8 15:47 No provider procedures requiring assistance completed. Patient did not have IV access tw2 during this emergency room visit. Administered Medications: No medications were administered Outcome: 15:06 Discharge ordered by . jr8 15:47 Discharged to home ambulatory. tw2 15:47 Condition: stable 15:47 Discharge instructions given to patient, Instructed on discharge instructions, follow up and referral plans. medication usage, Demonstrated understanding of instructions, follow-up care, medications, Prescriptions given X 1. 15:49 Patient left the ED. tw2 Signatures: Meggan Perez Josh, PA PA jr8 Nette Palomares RN RN tw2 Lynette Mcgrath RN RN ca1 Corrections: (The following items were deleted from the chart) 13:47 13:44 Coronavirus screen: Client denies travel out of the [place] in the last 14 days. At ca1 this time, the client does not indicate any symptoms associated with coronavirus-19. The client reports previous COVID testing was negative. Date of collection: November 2019 ca1
--- NOTE | 2020-01-16 15:07 | EDPHYS ---
Physician Documentation [facility] Name: Gifty Singletary Age: 44 yrs Sex: Female : 1975 Arrival Date: 01/16/2020 Time: 13:27 Bed 15 Private MD: ED Physician Meliton Mendieta HPI: 01/15 22:05 This 44 yrs old Female presents to ER via Ambulatory with complaints of Sore jr8 Throat. 22:05 The patient presents with sore throat. The patient describes throat pain as constant. jr8 22:05 Onset: The symptoms/episode began/occurred gradually, 3 day(s) ago. Severity of jr8 symptoms: At their worst the symptoms were mild, in the emergency department the symptoms are unchanged. Modifying factors: The symptoms are alleviated by nothing, the symptoms are aggravated by swallowing. Associated signs and symptoms: The patient has no apparent associated signs or symptoms. It is unknown whether or not the patient has had similar symptoms in the past. The patient has not recently seen a physician. [employer]: 13:46 LMP 01/09/2020 ca1 Historical: - Allergies: 13:46 No Known Allergies; ca1 - Home Meds: 13:46 None [Active]; ca1 - PMHx: 13:46 Asthma; ca1 - PSHx: 13:46 Cholecystectomy; ca1 - Immunization history:: Adult Immunizations up to date. - Social history:: Smoking status: Patient denies any tobacco usage or history of. ROS: 22:05 Eyes: Negative for injury, pain, redness, and discharge, Neck: Negative for injury, jr8 pain, and swelling, Cardiovascular: Negative for chest pain, palpitations, and edema, Respiratory: Negative for shortness of breath, cough, wheezing, and pleuritic chest pain, Abdomen/GI: Negative for abdominal pain, nausea, vomiting, diarrhea, and constipation, Back: Negative for injury and pain, MS/Extremity: Negative for injury and deformity, Skin: Negative for injury, rash, and discoloration, Neuro: Negative for headache, weakness, numbness, tingling, and seizure. 22:05 ENT: Positive for sore throat. Exam: 22:05 Head/Face: Normocephalic, atraumatic. Eyes: Pupils equal round and reactive to light, jr8 extra-ocular motions intact. Lids and lashes normal. Conjunctiva and sclera are non-icteric and not injected. Cornea within normal limits. Periorbital areas with no swelling, redness, or edema. ENT: Nares patent. No nasal discharge, no septal abnormalities noted. Tympanic membranes are normal and external auditory canals are clear. Oropharynx with no redness, swelling, or masses, exudates, or evidence of obstruction, uvula midline. Mucous membranes moist. Neck: Trachea midline, no thyromegaly or masses palpated. Submandibular lymphadenopathy with tenderness noted to left side. Supple, full range of motion without nuchal rigidity, or vertebral point tenderness. No Meningismus. Cardiovascular: Regular rate and rhythm with a normal S1 and S2. No gallops, murmurs, or rubs. Normal PMI, no JVD. No pulse deficits. Respiratory: Lungs have equal breath sounds bilaterally, clear to auscultation and percussion. No rales, rhonchi or wheezes noted. No increased work of breathing, no retractions or nasal flaring. Abdomen/GI: Soft, non-tender, with normal bowel sounds. No distension or tympany. No guarding or rebound. No evidence of tenderness throughout. Skin: Warm, dry with normal turgor. Normal color with no rashes, no lesions, and no evidence of cellulitis. Neuro: Awake and alert, GCS 15, oriented to person, place, time, and situation. Cranial nerves II-XII grossly intact. Motor strength 5/5 in all extremities. Sensory grossly intact. Cerebellar exam normal. Normal gait. Vital Signs: 13:44 BP 112 / 64; Pulse 94; Resp 15 S; Temp 99.2(O); Pulse Ox 100% on R/A; Weight 90.72 kg ca1 (R); Height 5 ft. 3 in. (160.02 cm) (M); 13:44 Body Mass Index 35.43 (90.72 kg, 160.02 cm) ca1 MDM: 14:54 Patient medically screened. [facility] 15:04 Data reviewed: vital signs, nurses notes, lab test result(s), and as a result, I will jr discharge patient. Data interpreted: Pulse oximetry: on room air is 100 %. Interpretation: normal. Counseling: I had a detailed discussion with the patient and/or guardian regarding: the historical points, exam findings, and any diagnostic results supporting the discharge/admit diagnosis, lab results, the need for outpatient follow up, an ENT specialist, to return to the emergency department if symptoms worsen or persist or if there are any questions or concerns that arise at home. ED course: Discussed with patient that she has lymphadenitis. Low grade fever. Could be bacterial in origin. Will put her on Abx. If not better after the regimen given, needs to f/u with ENT. Patient good with this . 01/15 13:47 Order name: Strep; Complete Time: 14:54 ca1 01/15 14:24 Order name: Throat Culture EDMS Administered Medications: No medications were administered Disposition: 17:31 Co-signature as Attending Physician, Meliton Mendieta MD. rn Disposition: 01/16/20 15:06 Discharged to Home. Impression: Acute pharyngitis, Acute lymphadenitis of face, head and neck. - Condition is Stable. - Discharge Instructions: Pharyngitis, Lymphadenopathy. - Prescriptions for Augmentin 875- 125 mg Oral Tablet - take 1 tablet by ORAL route every 12 hours for 10 days; 20 tablet. - Medication Reconciliation Form, Thank You Letter, Antibiotic Education, Prescription Opioid Use, Work release form form. - Follow up: Diane Chamberlain MD; When: 10 - 14 days; Reason: If symptoms return, Recheck today's complaints, Continuance of care, Re-evaluation by your physician. - Problem is new. - Symptoms have improved. Signatures: Dispatcher [employer] EDMS Meliton Mendieta MD MD rn Roszak, Josh, PA PA jr8 Nette Palomares RN RN tw2 Lynette Mcgrath RN RN ca1 Corrections: (The following items were deleted from the chart) 15:49 15:06 01/16/2020 15:06 Discharged to Home. Impression: Acute pharyngitis; Acute tw2 lymphadenitis of face, head and neck. Condition is Stable. Forms are Medication Reconciliation Form, Thank You Letter, Antibiotic Education, Prescription Opioid Use. Follow up: Diane Chamberlain; When: 10 - 14 days; Reason: If symptoms return, Recheck today's complaints, Continuance of care, Re-evaluation by your physician. Problem is new. Symptoms have improved. jr8
[2020-01-16 16:35] VITALS: BP 112/64; TEMP 99.2; O2SAT 100
== END 2020-01-16 15:49 | disposition home or self-care (01) ==
LOC: ER 13:26
DX: L04.0 Acute lymphadenitis of face, head and neck (principal); J02.9 Acute pharyngitis, unspecified
CPT/HCPCS: 87070; 87081; 99283

== ENCOUNTER 2020-01-17 00:08 | Emergency (ER) | payer BC ==
--- OUTSIDE RECORDS SUMMARY | 2020-01-17 00:10 | XMS REPORT | Continuity of Care Document ---
:1975 Author Organization [facility] t Address [address] [place] [address] [address]. [address] [place] [address] Care Team Providers Name Role Phone Unavailable Unavailable Unavailable Problems This patient has no known problems. Allergies, Adverse Reactions, Alerts This patient has no known allergies or adverse reactions. Medications This patient has no known medications. Procedures This patient has no known procedures. Results This patient has no known results.
[2020-01-17] MEDS ORDERED: CEFTRIAXONE 1000 MG/VIAL ONE (01:44)
[2020-01-17] MEDS ORDERED: dexAMETHasone 10 MG/ML VIAL ONE (01:44)
[2020-01-17] MEDS ORDERED: NA CHLORIDE 0.9% 1,000 ML ONE (01:44)
[2020-01-17 02:57] LABS: Absolute Lymphocytes (CBC) 1.9 K/uL (0.7-4.9); Basophils % 0.6 % (0-1.3); Hematocrit 35.2 % (36.0-45.0); Lymphocytes % 13.6 % (15.3-44.8); MPV 8.8 fL (7.6-11.3); RBC Red Blood Cell Count 4.65 M/uL (3.86-4.86)
[2020-01-17 03:08] LABS: ALT/SGPT 27 U/L (12-78); AST/SGOT 23 U/L (15-37); Albumin 3.2 g/dL (3.4-5.0); Alkaline Phosphatase 111 U/L (45-117); BUN Blood Urea Nitrogen 12 mg/dL (7-18); Bicarbonate 24 mmol/L (21-32); Bilirubin Total 0.2 mg/dL (0.2-1.0); Glucose Level 97 mg/dL (74-106); NT PRO-BNP 113 pg/mL (<125); Potassium 3.9 mmol/L (3.5-5.1); Protein, Total 7.8 g/dL (6.4-8.2); Sodium Level 139 mmol/L (136-145); Troponin (Emerg Dept Use Only) < 0.02 ng/mL (0.0-0.045)
--- NOTE | 2020-01-17 03:18 | RAD REPORT ---
EXAM DESCRIPTION: RAD - Chest Single View - 01/17/2020 1:27 am CLINICAL HISTORY: Chest pain;Cough Chest pain. COMPARISON: Chest Pa And Lat (2 Views) dated 07/02/2018; CHEST PA AND LAT 2 VIEW dated 02/11/2015 FINDINGS: Portable technique limits examination quality. The lungs are grossly clear. The heart is normal in size. No displaced fractures. IMPRESSION: No acute intrathoracic process suspected.
--- NOTE | 2020-01-17 03:18 | RAD REPORT ---
EXAM DESCRIPTION: CT - Soft Tissue Neck W/Contr CLINICAL HISTORY: PAIN Pain and swelling COMPARISON: No comparisons TECHNIQUE All CT scans are performed using dose optimization technique as appropriate and may includ e automated exposure control or mA/KV adjustment according to patient size. FINDINGS: No evidence intrinsic neck mass. Both palatine tonsils and lingual tonsils appear moderate ly enlarged. Enlarged lymph nodes are seen along both jugular chains bilaterally, largest on the right measuring 1 3 mm. 9 mm right submental lymph node also present. No peritonsillar or prevertebral abscess. Mild mucosal thickening of the inferior left maxillary sinus. Thyroid gland is normal sized. IMPRESSION: Moderate enlargement of the lingual and palatine tonsils. No peritonsillar or prevertebr al abscess. Adenopathy noted within the neck likely represent cervical lymphadenitis.
--- NOTE | 2020-01-17 03:21 | EDPHYS ---
Physician Documentation [facility] Name: Gifty Singletary Age: 44 yrs Sex: Female : 1975 Arrival Date: 01/17/2020 Time: 00:10 Bed 6 Private MD: ED Physician Vineet Reed HPI: 01/16 01:13 This 44 yrs old Female presents to ER via Ambulatory with complaints of david Breathing Difficulty. 01:13 The patient has shortness of breath with light activity. Onset: The symptoms/episode david began/occurred just prior to arrival. Duration: The symptoms are continuous, and are unchanged since they started. The patient's shortness of breath has no apparent modifying factors. Associated signs and symptoms: Pertinent positives: non-productive cough. Severity of symptoms: At their worst the symptoms were mild moderate in the emergency department the symptoms are unchanged. The patient has not experienced similar symptoms in the past. 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 - Social history:: Smoking status: Patient denies any tobacco usage or history of. ROS: 01:15 Constitutional: Negative for fever, chills, and weight loss, Eyes: Negative for injury, david pain, redness, and discharge, Neck: Negative for injury, pain, and swelling, Cardiovascular: Negative for chest pain, palpitations, and edema, Abdomen/GI: Negative for abdominal pain, nausea, vomiting, diarrhea, and constipation, Back: Negative for injury and pain, : Negative for injury, bleeding, discharge, and swelling, MS/Extremity: Negative for injury and deformity, Skin: Negative for injury, rash, and discoloration, Neuro: Negative for headache, weakness, numbness, tingling, and seizure, Psych: Negative for depression, anxiety, suicide ideation, homicidal ideation, and hallucinations, Allergy/Immunology: Negative for hives, rash, and allergies, Endocrine: Negative for neck swelling, polydipsia, polyuria, polyphagia, and marked weight changes, Hematologic/Lymphatic: Negative for swollen nodes, abnormal bleeding, and unusual bruising. 01:15 ENT: Positive for sore throat. 01:15 Respiratory: Positive for cough. Exam: 01:15 Constitutional: This is a well developed, well nourished patient who is awake, alert, david and in no acute distress. Head/Face: Normocephalic, atraumatic. Eyes: Pupils equal round and reactive to light, extra-ocular motions intact. Lids and lashes normal. Conjunctiva and sclera are non-icteric and not injected. Cornea within normal limits. Periorbital areas with no swelling, redness, or edema. Neck: Trachea midline, no thyromegaly or masses palpated, and no cervical lymphadenopathy. Supple, full range of motion without nuchal rigidity, or vertebral point tenderness. No Meningismus. Chest/axilla: Normal chest wall appearance and motion. Nontender with no deformity. No lesions are appreciated. Cardiovascular: Regular rate and rhythm with a normal S1 and S2. No gallops, murmurs, or rubs. Normal PMI, no JVD. No pulse deficits. Respiratory: Lungs have equal breath sounds bilaterally, clear to auscultation and percussion. No rales, rhonchi or wheezes noted. No increased work of breathing, no retractions or nasal flaring. Abdomen/GI: Soft, non-tender, with normal bowel sounds. No distension or tympany. No guarding or rebound. No evidence of tenderness throughout. Back: No spinal tenderness. No costovertebral tenderness. Full range of motion. Skin: Warm, dry with normal turgor. Normal color with no rashes, no lesions, and no evidence of cellulitis. MS/ Extremity: Pulses equal, no cyanosis. Neurovascular intact. Full, normal range of motion. Neuro: Awake and alert, GCS 15, oriented to person, place, time, and situation. Cranial nerves II-XII grossly intact. Motor strength 5/5 in all extremities. Sensory grossly intact. Cerebellar exam normal. Normal gait. Psych: Awake, alert, with orientation to person, place and time. Behavior, mood, and affect are within normal limits. 01:15 ENT: Posterior pharynx: Airway: normal, no evidence of obstruction, Tonsils: bilaterally enlarged, with erythema, no exudate, Uvula: normal, midline, non-edematous, no erythema, swelling, that is mild, erythema, that is mild, exudate, is not appreciated, peritonsillar mass, is not appreciated, pooling of secretions, is not appreciated. 01:15 Musculoskeletal/extremity: DVT Exam: No signs of deep vein thrombosis. no pain, no swelling, no tenderness, negative Homans' sign noted on exam, no appreciated bluish discoloration, no erythema, no increased warmth. Vital Signs: 00:45 BP 139 / 91; Pulse 100; Resp 19; Temp 99.1; Pulse Ox 100% ; Weight 90.72 kg; Height 5 ea ft. 3 in. (160.02 cm); 01:00 BP 129 / 80; Pulse 90; Resp 18; Pulse Ox 98% on R/A; ea 02:00 BP 132 / 82; Pulse 95; Resp 18; Pulse Ox 98% on R/A; ea 03:30 BP 126 / 90; Pulse 88; Resp 18; Temp 98.5; Pulse Ox 100% on R/A; ea 00:45 Body Mass Index 35.43 (90.72 kg, 160.02 cm) ea MDM: 00:49 Patient medically screened. [facility] 01:17 Differential diagnosis: asthma, Bronchitis epiglottitis, group A strep tonsillitis, david laryngitis, peritonsillar abscess tonsillitis, upper respiratory infection, uvulitis, pneumonia, Pneumothorax. Antibiotic administration: Not indicated. The patient's Wells Deep Vein Thrombosis Score was calculated as follows: Total Score: 0-2 Pts- Low Risk. The patient's pulmonary embolism risk score was calculated as follows: Total Score: 0-2 points. This patient was found to be at low risk for a pulmonary embolism by using the Well's assessment criteria. Immunization status:. Data reviewed: vital signs, nurses notes, lab test result(s), radiologic studies, plain films. Data interpreted: quality assurance monitor body: rate is 100 beats/min, Pulse oximetry: on room air is 100 %. Test interpretation: by ED physician or midlevel provider: plain radiologic studies. Counseling: I had a detailed discussion with the patient and/or guardian regarding: the historical points, exam findings, and any diagnostic results supporting the discharge/admit diagnosis, lab results, radiology results, the need for outpatient follow up, for definitive care, an ENT specialist. Medication response: decadron well tolearated. 01/16 01:13 Order name: CBC with Diff; Complete Time: 03:05 david 01/16 01:13 Order name: Comprehensive Metabolic Panel; Complete Time: 03:16 [facility] 01/16 01:50 Order name: Troponin (Emerg Dept Use Only); Complete Time: 03:16 [facility] 01/16 01:50 Order name: NT PRO-BNP; Complete Time: 03:16 [facility] 01/16 01:13 Order name: Chest Single View XRAY [facility] 01/16 01:13 Order name: CT Soft Tissue Neck W/contr [facility] 01/16 02:17 Order name: CREATININE WHOLE BLOOD; Complete Time: 02:22 [facility] 01/16 02:41 Order name: Urine Dipstick--Ancillary (enter results) 01/16 02:41 Order name: Urine --Ancillary (enter results) 01/16 01:13 Order name: Urine Dipstick-Ancillary (obtain specimen); Complete Time: 02:37 [facility] 01/16 01:22 Order name: EKG; Complete Time: 01:23 [facility] 01/16 01:22 Order name: EKG - Nurse/Tech; Complete Time: 02:04 [facility] EC:06 Rate is 97 beats/min. Rhythm is regular. QRS Mccoll is Normal. IA interval is normal. QRS david interval is normal. QT interval is normal. No Q waves. T waves are Normal. No ST changes noted. Clinical impression: Normal ECG and No evidence of ischemia. Interpreted by me. Reviewed by me. Administered Medications: 02:04 Drug: Decadron - Dexamethasone 10 mg Route: IVP; Site: left forearm; ea 03:25 Follow up: Response: No adverse reaction ea 02:05 Drug: NS 0.9% 1000 ml Route: IV; Rate: 1 bolus; Site: left forearm; ea 03:25 Follow up: Response: No adverse reaction; IV Status: Completed infusion; IV Intake: ea 1000ml 02:05 Drug: Rocephin 1 grams Route: IV; Rate: per protocol; Site: left forearm; ea 03:25 Follow up: Response: No adverse reaction; IV Status: Completed infusion ea 03:25 Not Given (Physician Discretion): Augmentin 875 mg PO once ea Disposition: 01/17/20 03:21 Discharged to Home. Impression: Acute tonsillitis, Dyspnea, Elevated white blood cell count. - Condition is Stable. - Discharge Instructions: Shortness of Breath, Tonsillitis, Tonsillitis, [id number], Shortness of Breath, [id number]. - Prescriptions for Augmentin 875- 125 mg Oral Tablet - take 1 tablet by ORAL route every 12 hours for 10 days; 20 tablet. Medrol (Chris) 4 mg Oral Tablets, Dose Pack - take 1 tablet by ORAL route as directed - follow package instructions; 1 packet. - Medication Reconciliation Form, Thank You Letter, Antibiotic Education, Prescription Opioid Use, Work release form, Family Work Release form. - Follow up: Private Physician; When: 2 - 3 days; Reason: Recheck today's complaints, Continuance of care, Re-evaluation by your physician. Follow up: Diane Chamberlain; When: 2 - 3 days; Reason: Recheck today's complaints, Re-evaluation by your physician. - Problem is new. - Symptoms have improved. Signatures: Dispatcher [employer] EDWI Vineet Reed MD MD cha Antunez, Elena, RN RN ea Corrections: (The following items were deleted from the chart) 01:50 01:23 TROPONIN (EMERG DEPT USE ONLY)+C.LAB.BRZ ordered. [facility] EDWI 01:50 01:23 PROBNP+C.LAB.BRZ ordered. [facility] EDWI 03:43 03:21 01/17/2020 03:21 Discharged to Home. Impression: Acute tonsillitis; Dyspnea; ea Elevated white blood cell count. Condition is Stable. Discharge Instructions: Shortness of Breath, Tonsillitis, Tonsillitis, Muye-mg-Tytp, Shortness of Breath, Aiac-cu-Ivhx. Prescriptions for Augmentin 875-125 mg Oral Tablet - take 1 tablet by ORAL route every 12 hours for 10 days; 20 tablet, Medrol (Chris) 4 mg Oral Tablets, Dose Pack - take 1 tablet by ORAL route as directed - follow package instructions; 1 packet. and Forms are Medication Reconciliation Form, Thank You Letter, Antibiotic Education, Prescription Opioid Use. Follow up: Private Physician; When: 2 - 3 days; Reason: Recheck today's complaints, Continuance of care, Re-evaluation by your physician. Follow up: Diane Chamberlain; When: 2 - 3 days; Reason: Recheck today's complaints, Re-evaluation by your physician. Problem is new. Symptoms have improved. david
--- NOTE | 2020-01-17 03:21 | ER ---
Nurse's Notes [facility] Name: Gifty Singletary Age: 44 yrs Sex: Female : 1975 Arrival Date: 01/17/2020 Time: 00:10 Bed 6 Private MD: Diagnosis: Acute tonsillitis;Dyspnea;Elevated white blood cell count Presentation: 01/16 00:45 Chief complaint: Patient states: Reports she was seen earlier today and was diagnosed ea with pharyngitis, she reports tonight she was trying to go to sleep and suddenly it was hard for her to swallow and breath. Pt reports she panicked and now she has a headache. Coronavirus screen: At this time, the client does not indicate any symptoms associated with coronavirus-19. Ebola Screen: No symptoms or risks identified at this time. Initial Sepsis Screen: Does the patient meet any 2 criteria? No. Patient's initial sepsis screen is negative. Does the patient have a suspected source of infection? No. Patient's initial sepsis screen is negative. Risk Assessment: Do you want to hurt yourself or someone else? Patient reports no desire to harm self or others. Onset of symptoms was January 17, 2020. 00:45 Method Of Arrival: Ambulatory ea 00:45 Acuity: ODILIA 3 ea Triage Assessment: 00:49 General: Appears in no apparent distress. Behavior is calm, cooperative, appropriate ea for age. Pain: Complains of pain in left aspect of posterior pharynx and right aspect of posterior pharynx. Neuro: Level of Consciousness is awake, alert, obeys commands, Oriented to person, place, time, situation. Cardiovascular: Patient's skin is warm and dry. Respiratory: the patient reports symptoms have resolved. Respiratory: Reports reports she was unable to breath for a minute Onset: The symptoms/episode began/occurred today. Derm: Skin is pink, warm \T\ dry. 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 - Social history:: Smoking status: Patient denies any tobacco usage or history of. Screenin:48 Abuse screen: Denies threats or abuse. Nutritional screening: No deficits noted. ea Tuberculosis screening: No symptoms or risk factors identified. Fall Risk None identified. Assessment: 00:51 Cardiovascular: Patient's skin is warm and dry. Respiratory: Airway is patent ea Respiratory effort is even, unlabored, Breath sounds are clear bilaterally. 01:30 Reassessment: Patient and/or family updated on plan of care and expected duration. Pain ea level reassessed. Patient is alert, oriented x 3, equal unlabored respirations, skin warm/dry/pink. 02:30 Reassessment: Patient and/or family updated on plan of care and expected duration. Pain ea level reassessed. Patient is alert, oriented x 3, equal unlabored respirations, skin warm/dry/pink. 03:40 Reassessment: Patient and/or family updated on plan of care and expected duration. Pain ea level reassessed. Patient is alert, oriented x 3, equal unlabored respirations, skin warm/dry/pink. Discharge instruction given to patient, verbalized the understanding of instruction. Pt left ED ambulatory tolerating well. Vital Signs: 00:45 BP 139 / 91; Pulse 100; Resp 19; Temp 99.1; Pulse Ox 100% ; Weight 90.72 kg; Height 5 ea ft. 3 in. (160.02 cm); 01:00 BP 129 / 80; Pulse 90; Resp 18; Pulse Ox 98% on R/A; ea 02:00 BP 132 / 82; Pulse 95; Resp 18; Pulse Ox 98% on R/A; ea 03:30 BP 126 / 90; Pulse 88; Resp 18; Temp 98.5; Pulse Ox 100% on R/A; ea 00:45 Body Mass Index 35.43 (90.72 kg, 160.02 cm) ED Course: 00:10 Patient arrived in ED. mr 00:33 Migdalia Khan, RN is Primary Nurse. ea 00:48 Triage completed. ea 00:48 Patient has correct armband on for positive identification. Bed in low position. Call ea light in reach. 00:49 Vineet Reed MD is Attending Physician. [facility] 00:49 Arm band placed on right wrist. Patient placed in an exam room, on a stretcher, on ea pulse oximetry. 01:27 Chest Single View XRAY In Process Unspecified. EDMS 01:37 Inserted saline lock: 22 gauge in left forearm, using aseptic technique. Blood ds4 collected. 01:44 Comprehensive Metabolic Panel Sent. ds4 01:44 CBC with Diff Sent. ds4 02:59 CT Soft Tissue Neck W/contr In Process Unspecified. EDMS 03:20 Diane Chamberlain MD is Referral Physician. [facility] 03:40 No provider procedures requiring assistance completed. IV discontinued, intact, ea bleeding controlled, No redness/swelling at site. Pressure dressing applied. Administered Medications: 02:04 Drug: Decadron - Dexamethasone 10 mg Route: IVP; Site: left forearm; ea 03:25 Follow up: Response: No adverse reaction ea 02:05 Drug: NS 0.9% 1000 ml Route: IV; Rate: 1 bolus; Site: left forearm; ea 03:25 Follow up: Response: No adverse reaction; IV Status: Completed infusion; IV Intake: ea 1000ml 02:05 Drug: Rocephin 1 grams Route: IV; Rate: per protocol; Site: left forearm; ea 03:25 Follow up: Response: No adverse reaction; IV Status: Completed infusion ea 03:25 Not Given (Physician Discretion): Augmentin 875 mg PO once ea Intake: 03:25 IV: 1000ml; Total: 1000ml. ea Outcome: 03:21 Discharge ordered by . david 03:40 Discharged to home ambulatory. ea 03:40 Condition: stable 03:40 Discharge instructions given to patient, Instructed on discharge instructions, follow up and referral plans. medication usage, Demonstrated understanding of instructions, follow-up care, medications, Prescriptions given X 2. 03:43 Patient left the ED. ea Signatures: Dispatcher [employer] EDOH Vineet Reed MD MD cha Rivera, Mary mr HoDennis 4 Migdalia Khan, RN RN ea Corrections: (The following items were deleted from the chart) 01:50 01:44 TROPONIN (EMERG DEPT USE ONLY)+C.LAB.BRZ drawn and sent. ds4 EDMS 01:50 01:44 PROBNP+C.LAB.BRZ drawn and sent. ds4 EDMS 02:05 02:04 Decadron - Dexamethasone 10 mg IVP in right antecubital ea ea
[2020-01-17 03:51] VITALS: BP 126/90; TEMP 98.5; O2SAT 100
[2020-01-17 07:41] LABS: Urine Blood 1+ (NEG); Urine Glucose NEGATIVE (NEG); Urine Protein NEGATIVE (NEG); Urine Specific Gravity 1.025 (1.005-1.030); Urine pH 5.5 (5.0-7.0)
--- NOTE | 2020-01-18 07:41 | EKG ---
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
== END 2020-01-17 03:43 | disposition home or self-care (01) ==
LOC: ER 00:08
DX: J03.90 Acute tonsillitis, unspecified (principal); D72.829 Elevated white blood cell count, unspecified
CPT/HCPCS: 93005; 85025; 36415; 81025; 82565; 81003; 84484; 80053; 83880; 70491; 71045; Q9967; J1100; J7030

== ENCOUNTER 2020-11-11 22:39 | Emergency (ER) | payer BC ==
--- NOTE | 2020-11-12 01:59 | EDPHYS ---
Physician Documentation [facility] Name: Gfity Singletary Age: 45 yrs Sex: Female : 1975 Arrival Date: 11/11/2020 Time: 22:53 Bed 18 Private MD: ED Physician Andreia Conley HPI: 11/12 01:57 This 45 yrs old Female presents to ER via Ambulatory with complaints of Insect ma2 Bite. 01:57 Onset: The symptoms/episode began/occurred suddenly, 2 hour(s) ago. Associated signs ma2 and symptoms: Pertinent negatives: anorexia, chest pain, constipation, dysuria. Severity of pain: At its worst the pain was mild in the emergency department the pain is unchanged. The patient has not experienced similar symptoms in the past. 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 - Social history:: Smoking status: Patient denies any tobacco usage or history of. Patient/guardian denies using alcohol, street drugs, The patient lives with family. - Family history:: not pertinent. ROS: 11/12 01:57 Constitutional: Negative for fever, chills, and weight loss. ma2 All other systems are negative. Exam: 01:57 Constitutional: This is a well developed, well nourished patient who is awake, alert, ma2 and in no acute distress. Chest/axilla: Normal chest wall appearance and motion. Nontender with no deformity. No lesions are appreciated. Cardiovascular: Regular rate and rhythm with a normal S1 and S2. No gallops, murmurs, or rubs. Normal PMI, no JVD. No pulse deficits. Respiratory: Lungs have equal breath sounds bilaterally, clear to auscultation and percussion. No rales, rhonchi or wheezes noted. No increased work of breathing, no retractions or nasal flaring. Abdomen/GI: right lower abdomin insext bite mild induration no abscess, Soft, non-tender, with normal bowel sounds. No distension or tympany. No guarding or rebound. No evidence of tenderness throughout. Vital Signs: 11/11 23:53 BP 134 / 82; Pulse 76; Resp 18; Temp 97.1(TE); Pulse Ox 99% on R/A; Weight 97.07 kg lp1 (R); Height 5 ft. 1 in. (154.94 cm); 11/12 01:52 BP 144 / 85; Pulse 71; Resp 18; Pulse Ox 98% on R/A; Pain 6/10; fu 11/11 23:53 Body Mass Index 40.43 (97.07 kg, 154.94 cm) lp1 MDM: 01:51 Patient medically screened. ma2 01:57 Differential diagnosis: insect bite, cellulitis no abscess. Data reviewed: vital signs, ma2 nurses notes. Counseling: I had a detailed discussion with the patient and/or guardian regarding: the historical points, exam findings, and any diagnostic results supporting the discharge/admit diagnosis, the presence of at least one elevated blood pressure reading (>120/80) during this emergency department visit, the need for outpatient follow up. Response to treatment: the patient's symptoms have markedly improved after treatment. Administered Medications: No medications were administered Disposition: 11/12/20 01:58 Discharged to Home. Impression: Cellulitis of abdominal wall. - Condition is Stable. - Discharge Instructions: Cellulitis, Adult. - Prescriptions for Benadryl 25 mg Oral Capsule - take 1 capsule by ORAL route every 6 hours As needed; 30 tablet. Clindamycin HCl 300 mg Oral Capsule - take 1 capsule by ORAL route every 6 hours for 10 days; 40 capsule. Diclofenac Sodium 75 mg Oral Tablet Sustained Release - take 1 tablet by ORAL route 2 times per day; 30 tablet. - Work release form, Medication Reconciliation Form, Thank You Letter, Antibiotic Education, Prescription Opioid Use form. - Follow up: Private Physician; When: Tomorrow; Reason: Continuance of care. Signatures: Jennifer Minor RN RN lp1 Ben Prasad RN RN Andreia Conley MD MD wy2 Corrections: (The following items were deleted from the chart) 02:49 01:58 11/12/2020 01:58 Discharged to Home. Impression: Cellulitis of abdominal wall. fu Condition is Stable. Forms are Medication Reconciliation Form, Thank You Letter, Antibiotic Education, Prescription Opioid Use. Follow up: Private Physician; When: Tomorrow; Reason: Continuance of care. ma2
--- NOTE | 2020-11-12 01:59 | ER ---
Nurse's Notes [facility] Name: Gifty Singletary Age: 45 yrs Sex: Female : 1975 Arrival Date: 11/11/2020 Time: 22:53 Bed 18 Private MD: Diagnosis: Cellulitis of abdominal wall Presentation: 11/11 23:49 Chief complaint: Patient states: Reports itching and pain to RLQ of abdomen that began lp1 2 days ago; States using OTC creams for itching with no relief; redness to site, unsure if something bit her. Coronavirus screen: Client denies travel out of the [place] in the last 14 days. At this time, the client does not indicate any symptoms associated with coronavirus-19. Ebola Screen: No symptoms or risks identified at this time. Risk Assessment: Do you want to hurt yourself or someone else? Patient reports no desire to harm self or others. Onset of symptoms was November 11, 2020. 23:49 Method Of Arrival: Ambulatory lp1 23:49 Acuity: ODILIA 5 lp1 23:53 Initial Sepsis Screen: Does the patient meet any 2 criteria? No. Patient's initial lp1 sepsis screen is negative. Does the patient have a suspected source of infection? No. Patient's initial sepsis screen is negative. 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 - Social history:: Smoking status: Patient denies any tobacco usage or history of. Patient/guardian denies using alcohol, street drugs, The patient lives with family. - Family history:: not pertinent. Screenin:53 Abuse screen: Denies threats or abuse. Denies injuries from another. Nutritional lp1 screening: No deficits noted. Tuberculosis screening: No symptoms or risk factors identified. Fall Risk None identified. Assessment: 11/12 01:57 General: Appears in no apparent distress. Behavior is calm, cooperative, appropriate fu for age, Denies fever, feeling ill, fatigue, chills. Pain: Complains of pain in lower abdomen Pain does not radiate. Pain currently is 6 out of 10 on a pain scale. Pain began 2-3 days ago. Is continuous. Neuro: Level of Consciousness is awake, alert, obeys commands, Oriented to person, place, time, situation, Moves all extremities. Gait is steady, Speech is normal. Cardiovascular: Denies chest pain. Respiratory: Respiratory effort is even, Respiratory pattern is regular. GI: No signs and/or symptoms were reported involving the gastrointestinal system. : No signs and/or symptoms were reported regarding the genitourinary system. EENT: No signs and/or symptoms were reported regarding the EENT system. Derm: Skin is intact, Skin is red, Reports itching. Musculoskeletal: No signs and/or symptoms reported regarding the musculoskeletal system. Vital Signs: 11/11 23:53 BP 134 / 82; Pulse 76; Resp 18; Temp 97.1(TE); Pulse Ox 99% on R/A; Weight 97.07 kg lp1 (R); Height 5 ft. 1 in. (154.94 cm); 11/12 01:52 BP 144 / 85; Pulse 71; Resp 18; Pulse Ox 98% on R/A; Pain 6/10; fu 11/11 23:53 Body Mass Index 40.43 (97.07 kg, 154.94 cm) lp1 ED Course: 11/11 22:53 Patient arrived in ED. am2 23:52 Triage completed. lp1 23:52 Arm band placed on. lp1 11/12 01:44 Ben Prasad RN is Primary Nurse. fu 01:51 Andreia Conley MD is Attending Physician. ma2 02:40 Patient has correct armband on for positive identification. Bed in low position. Call fu light in reach. Side rails up X 1. 02:40 No provider procedures requiring assistance completed. Patient did not have IV access fu during this emergency room visit. Administered Medications: No medications were administered Outcome: 01:58 Discharge ordered by . ma2 02:45 Discharged to home ambulatory. fu 02:45 Condition: good 02:45 Discharge instructions given to patient, Instructed on discharge instructions, follow up and referral plans. Demonstrated understanding of instructions, follow-up care, Prescriptions given X 3. 02:49 Patient left the ED. fu Signatures: Jennifer Minor RN RN 1 Shelia Fox am2 Ben Prasad RN RN Andreia Brewer MD MD ma2
[2020-11-12 02:57] VITALS: TEMP 97.1
[2020-11-12 02:59] VITALS: BP 144/85; O2SAT 98
== END 2020-11-12 02:49 | disposition home or self-care (01) ==
LOC: ER 22:39
DX: L03.311 Cellulitis of abdominal wall (principal)
CPT/HCPCS: 99282

== ENCOUNTER 2022-10-25 08:43 | Emergency (ER) | payer BC, SELFPAY ==
--- OUTSIDE RECORDS SUMMARY | 2022-10-25 08:46 | XMS REPORT | Continuity of Care Document ---
:1975 Author Organization [facility] t Address [address] [place] [address] Care Team Providers Name Role Phone Justice Javed Primary Care Physician [phone] MARY SARAVIA Attending Clinician Unavailable MARY SARAVIA Attending Clinician Unavailable Only, [facility] Test Attending Clinician Unavailable Unknown, Attending Attending Clinician Unavailable Iris Mosquera Attending Clinician [phone] IRIS DAY Attending Clinician Unavailable Linda Alfaro RN Attending Clinician Unavailable FAUZIA MERCADO Attending Clinician Unavailable Fauzia Blankenship Attending Clinician DEVONTE MICHAEL Attending Clinician Unavailable Devonte Michael MD Attending Clinician GIOVANNI DOUGLASS Attending Clinician Unavailable ALBERTO GARCIA Attending Clinician Unavailable Alberto Garcia MD Attending Clinician GIOVANNI DOUGLASS Admitting Clinician Unavailable ALBERTO GARCIA Admitting Clinician Unavailable Payers Payer Name Policy Type Policy Number Effective Date Expiration Date S pranay [facility] [id number] 2021 00:00:00 Problems Condition Condition Condition Status Onset Resolution Last Treating Co mments Source Name Details Category Date Date Treatment Clinician Date Atypical Atypical Disease Active Unive rs chest pain chest pain 7-04 it y of 00:00: [place] 00 Medical Branch of of Disease Active Unive rs family family 1-04 ity of member member 00:00: [place] 00 Medical Branch Feeling of Feeling of Disease Active U nivers sadness sadness 1-04 ity of 00:00: [place] 00 Medical Branch Menorrhagi Menorrhagi Disease Active 2016-06 U nivers a with a with 0-23 ity of regular regular 00:00: [place] cycle cycle 00 Medical Branch Morbid Morbid Disease Active 2016-06 Univers obesity obesity 0-23 ity of 00:00: [place] 00 Medical Branch History of History of Disease Active U nivers tubal tubal 8-14 ity of ligation ligation 00:00: [place] [facility] History of History of Disease Active U nivers hypertensi hypertensi 8-14 it y of on on 00:00: [place] 00 Medical Branch Screening Screening Disease Active Overview: Univers for STDs for STDs 01-11 Formattin ity of (sexually (sexually 00:00: [place] of this [place] transmitte transmitte 00 note Me dical d d might be Branch diseases) diseases) different from the original. 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 Allergies, Adverse Reactions, Alerts Allergy Allergy Status Severity Reaction(s) Onset Inactive Treating Comm ents Source Name Type Date Date Clinician NO KNOWN Drug Active Univers ALLERGIE Class ity of S [facility] Social History Social Habit Start Date Stop Date Quantity Comments Source History SDOH University o f Alcohol Frequency [place] M edical [facility] History SDOH University o f Alcohol Std [place] Medical Drinks Branch History SDOH University o f Alcohol Binge [place] [facility] al [facility] History of Occasional tobacco Univer sity of tobacco use smoker [facility] Exposure to 2022-03-03 2022-03-13 Not sure University of SARS-CoV-2 00:00:00 11:16:00 [facility] (event) Branch Alcohol intake 2018-06-04 2018-06-04 0 /d University of 00:00:00 00:00:00 [facility] Tobacco use and 2015-01-11 2015-01-11 Smokeless tobacco Un iversity of exposure 00:00:00 00:00:00 non-user [facility] Alcohol Comment 2015-01-11 2015-01-11 Occasionally Univers ity of 00:00:00 00:00:00 [facility] Sex Ass[birth year] At [birth year] Universit y of 00:00:00 00:00:00 [facility] Smoking Status Start Date Stop Date Source Occasional tobacco smoker 2015-01-11 00:00:00 Un iversity of [facility] Medications Ordered Filled Start Stop Current Ordering Indication Dosage Frequency Signature Comments Components Source Medication Medication Date Date Medication? Clinician (SIG) Name Name cephALEXin 2021-06- No 500mg 500 mg, Un misael (KEFLEX) 03-13 Oral, ity of capsule 500 17:30: 17:54 [place]CE[place] 1 [place] :00 dose, On Medical Laura Branch 03/13/22 at 1230, BRITNEY
Re ason for Anti-Infec tive: Documented Infection< br>Documen bethel Infection Site: Skin / Soft Tissue
Duration of Therapy: 10 days ibuprofen 2021-06 Yes [id number] 600mg Take 1 Univers 600 mg 0- [id number] tablet by ity of tablet 00:00: mouth [place] 00 every 6 Medical (six) Branch hours as needed for Pain (scale 4-6) for up to 30 doses. cephALEXin 2021-06- No [id number] 1000mg Take 2 Univers 500 mg 03-24 [id number] capsules ity of capsule 00:00: 04:59 by mouth [place] 00 :00 in the Medical morning Branch and 2 capsules in the evening. Do all this for 10 days. azithromyci Yes [id number] 250mg Take 1 Univers n 250 mg 7-05 tablet by ity of tablet 00:00: mouth [place] 00 SEE-INSTRU Medical CTIONS. Branch Take 500 mg day 1, then 250 mg days 2 to 5. benzonatate Yes [id number] 100mg Take 1 Univers 100 mg 7-05 capsule by ity of capsule 00:00: mouth [place] 00 every 8 Medical (eight) Branch hours as needed for Cough. azithromyci Yes [id number] 250mg Take 1 Univers n 250 mg 7-05 tablet by ity of tablet 00:00: mouth [place] 00 SEE-INSTRU Medical CTIONS. Branch Take 500 mg day 1, then 250 mg days 2 to 5. benzonatate Yes [id number] 100mg Take 1 Univers 100 mg 7-05 capsule by ity of capsule 00:00: mouth [place] 00 every 8 Medical (eight) Branch hours as needed for Cough. terconazole Yes [id number] 1{appli Insert 1 Univers 0.8 % 1-04 cator} Applicator ity of vaginal 00:00: into [place] cream 00 vagina at Medical bedtime. Branch terconazole Yes [id number] 1{appli Insert 1 Univers 0.8 % 1-04 cator} Applicator ity of vaginal 00:00: into [place] cream 00 vagina at Medical bedtime. Branch Immunizations Ordered Filled Immunization Date Status Comments Sour e Immunization Name Name Influenza Virus 2018-06-04 Completed Universit y of Vaccine [place] .5 mL 00:00:00 [facility] IM 6+ MO Branch Influenza Virus 2018-06-04 Completed Universit y of Vaccine Quad .5 mL 00:00:00 [facility] IM 6+ MO Branch TDAP 2015-01-11 Completed [facility] 00:00:00 [facility] TDAP 2015-01-11 Completed [facility] 00:00:00 [facility] Vital Signs Vital Name Observation Time Observation Value Comments Source Systolic blood 2022-03-13 17:57:00 136 mm[Hg] Univer sity of pressure [facility] Diastolic blood 2022-03-13 17:57:00 86 [facility]Hg[facility] 2022-03-13 17:57:00 81 /min [facility] Respiratory rate 2022-03-13 17:57:00 16 /min [facility] Oxygen saturation in 2022-03-13 17:57:00 100 /min [facility] Arterial blood by [facility] Pulse oximetry Branch Body temperature 2022-03-13 16:17:00 36.5 [facility] 2022-03-13 16:14:00 154.9 cm [facility] Body weight 2022-03-13 16:14:00 104.327 kg [facility] BMI 2022-03-13 16:14:00 43.46 kg/m2 [facility] Procedures This patient has no known procedures. Encounters Start End Encounter Admission Attending Care Care Encounter Source Date/Time Date/Time Type Type Clinicians Facility Department ID 2022-03-13 2022-03-13 Emergency X MARY SARAVIA [facility] ERT 1 [id number] Univers 11:16:00 13:37:00 MARY SARAVIA itcinthia [facility] 2022-03-13 2022-03-13 Emergency Carmenza [facility] [id number] Univers 11:16:00 13:37:00 [facility] [id number] it y of [facility] [id number] [facility] [phone] [address] ([facility]) 2021-12-13 2021-12-13 Laboratory Only, [facility] Test [facility] [id number] Univers 10:30:00 11:10:07 Only Unknown, Attending MELL [id number] ity of ShayIris mccullough [facility] 4.2.7. 2.686 [facility] [id number] [address] [place] 2021-12-13 2021-12-13 Outpatient R SHAY [facility] [id number] Univers 10:30:00 11:10:07 IRIS [facility] 2021-12-13 2021-12-13 Outpatient R SHAY [facility] [id number] Univers 10:30:00 10:30:00 [facility] 2021-12-07 2021-12-07 LUIS ALBERTO [place] [id number] Univers 00:00:00 00:00:00 (Out) Linda CHAHAL [id number] it y of [facility] [id number] [facility] [phone] [address] 2021-12-06 2021-12-06 Outpatient R JESS [facility] [id number] Univers 12:30:00 13:55:38 FAUZIA ity [facility] 2021-12-06 2021-12-06 Urgent Fauzia Mercado [facility] [id number] Univers 12:30:00 13:55:38 Care Unknown, Attending MELL [id number] ity [facility] [id number] [facility] [id number] [address] 2021-12-06 2021-12-06 Outpatient R JESS, [facility] [id number] Univers 12:30:00 12:30:00 FAUZIA [facility] 2021-12-03 2021-12-03 Emergency X FERNANDA, [facility] ERT [id number] Univers 11:54:00 14:38:00 [facility] [place] [facility] 2021-12-03 2021-12-03 Emergency X FERNANDA, [facility] ERT [id number] Univers 11:54:00 14:38:00 [facility] [place] [facility] 2021-12-03 2021-12-03 Emergency X MERISSAR, [facility] ERT [id number] Univers 11:54:00 14:38:00 [facility] 2021-12-03 2021-12-03 Emergency Rodrigogior, [facility] [id number] Univers 11:54:00 14:38:00 [facility] [id number] it y of Jose MONTE [id number] [facility] [phone] [address] ([facility]) 2021-12-02 2021-12-02 Emergency X ASHLEY [facility] ERT [id number] Univers 10:04:00 11:31:00 GIOVANNI neely [facility] 2021-12-02 2021-12-02 Emergency X ASHLEY [facility] ERT [id number] Univers 10:04:00 11:31:00 GIOVANNI neely [facility] 2021-12-02 2021-12-02 Emergency X ASHLEY [facility] ERT [id number] Univers 10:04:00 11:31:00 [facility] 2021-12-02 2021-12-02 Emergency Ashley [facility] [id number] Univers 10:04:00 11:31:00 [facility] [id number] it y of [place] [id number] [facility] [id number] [address] ([facility]) 2021-10-13 2021-10-13 Emergency X JOSE [facility] ERT [id number] Univers 10:34:00 13:27:00 [facility] 2021-10-13 2021-10-13 [facility] [id number] Univers 10:34:00 13:27:00 [facility] [id number] it y of [place] [id number] [facility] [id number] [address] ([facility]) Results Test Description Test Time Test Comments Results Result Comments Source COMPREHENSIVE METABOLIC PANEL 2021-06-22 04:15:18 Test Item Value Reference Range Interpretation Comme nts GLUCOSE (test code = 2217) 90 MG/DL 70-99 BUN (test code = 2208) 14 MG/DL 6-20 CREATININE (test code = 0.77 MG/DL 0.60-1.30 2213) eGFR (2020 CKD-EPI) (test 96 ML/MIN/1.73 >60 code = 56225) CALC BUN/CREAT (test code = 18 RATIO -28 2234) SODIUM (test code = 2231) 141 MEQ/L 133-146 POTASSIUM (test code = 4.3 MEQ/L 3.5-5.4 2227) CHLORIDE (test code = 2215) 103 MEQ/L 95-107 CARBON DIOXIDE (test code = 25 MEQ/L 2205) CALCIUM (test code = 2209) 9.6 MG/DL 8.5-10.5 PROTEIN, TOTAL (test code = 7.6 G/DL 6.1-8.3 2228) ALBUMIN (test code = 2201) 4.4 G/DL 3.5-5.2 CALC GLOBULIN (test code = 3.2 G/DL 1.9-3.7 2239) CALC A/G RATIO (test code = 1.4 RATIO 1.0-2.6 2233) BILIRUBIN, TOTAL (test code <0.2 MG/DL See_Comment [Automated message] The = 2207) system which ge nerated this result transmit bethel reference range: <=1.2. T he reference range was not u sed to interpret this result as normal/abnormal . ALKALINE PHOSPHATASE (test 106 U/L 40-120 code = 2204) AST (test code = 2218) 15 U/L 9-40 ALT (test code = 2219) 12 U/L 5-40 UNLE SS OTHERWISE INDICATED, ALL TESTING PER [facility] [place]. [address] [place] [address] 33 LABORATORY DIRE CTOR: REGINE FREGOSO M.D. MAYRAIA NUMBER [id number] [place]. [id number]
--- NOTE | 2022-10-25 10:17 | RAD REPORT ---
EXAM DESCRIPTION: CT - Soft Tissue Neck W/Contr CLINICAL HISTORY: SWELLING COMPARISON: Soft Tissue Neck W/Contr dated 01/17/2020 TECHNIQUE: Thin axial CT images of the neck, performed following intravenous administration of 90 m L Isovue-300. Multiplanar reformats were generated and reviewed. All CT scans are performed using dose optimization technique as appropriate and may include automated exposure control or mA/KV adjustment according to patient size. FINDINGS: Soft tissue edema along the bilateral mandibular body buccal surfaces extending along the lower lip, and right subcutaneous soft tissues of the cheek. No appreciable fluid collections. Scattered carious changes, most pronounced along the left maxillary posterior-most molar, with a smal l periapical fluid collection. Suspected cortical defect along the floor of the left maxillary sinus with overlying polypoidal mucosal thickening. Nasopharyngeal tissues are normal in appearance. Fossa Rosenmller are normal. Parapharyngeal fat triangles are symmetric. Tongue base structures are normal. Epiglottis and aryepiglottic folds are normal. Piriform sinuses are well aerated. The vocal cords are normal in appearance. No suspicious adenopathy. Salivary glands are normal in appearance. Upper lung bryson are clear. Included intracranial contents are unremarkable. IMPRESSION: Soft tissue edematous changes along the buccal surfaces of the mandibular body bilateral ly extending along the superficial soft tissues of the lower lip and right cheek. No appreciable flui d collections. Scattered carious changes. Small periapical fluid collection at the roots of the left posterior-most maxillary molar. The superficial soft tissue findings may be related to an ongoing odontogenic infect ion. There is odontogenic polypoidal mucosal thickening along the left maxillary sinus floor with a s uspected small cortical defect.
--- NOTE | 2022-10-25 10:20 | EDPHYS ---
Physician Documentation [facility] Name: Gifty Singletary Age: 47 yrs Sex: Female : 1975 Arrival Date: 10/25/2022 Time: 08:43 Bed 11 Private MD: ED Physician Vineet Reed HPI: 10/25 08:56 This 47 yrs old Female presents to ER via Ambulatory with complaints of Facial jmm Swelling, Lips Swelling. 08:56 The patient or guardian reports swelling. The complaints affect the right cheek, chin jmm and right jaw. Onset: The symptoms/episode began/occurred gradually, 1 day(s) ago. Is a 47-year-old female with history of asthma the presents emerged department with complaints of chin swelling which has radiated into the right cheek. Denies any fever or chills. Denies any swelling sensation to her throat. Denies shortness of breath.. Historical: - Allergies: 08:56 No Known Allergies; hb - Home Meds: 08:56 None [Active]; hb - PMHx: 08:56 Asthma; hb - PSHx: 08:56 Cholecystectomy; hb - Immunization history:: Adult Immunizations up to date. - Social history:: Smoking status: Patient denies any tobacco usage or history of. ROS: 08:56 Constitutional: Negative for fever, chills, and weight loss, Cardiovascular: Negative jmm for chest pain, palpitations, and edema, Respiratory: Negative for shortness of breath, cough, wheezing, and pleuritic chest pain. 08:56 ENT: Positive for 08:56 All other systems are negative. Exam: 08:56 Constitutional: This is a well developed, well nourished patient who is awake, alert, jmm and in no acute distress. Head/Face: atraumatic. Eyes: EOMI, no conjunctival erythema appreciated 08:56 Neck: Trachea midline, Supple Chest/axilla: Normal chest wall appearance and motion. Cardiovascular: Regular rate and rhythm. No edema appreciated Respiratory: Normal respirations, no respiratory distress appreciated Abdomen/GI: Non distended Back: Normal ROM Skin: General appearance color normal MS/ Extremity: Moves all extremities, no obvious deformities appreciated, no edema noted to the lower extremities Neuro: Awake and alert Psych: Behavior is normal, Mood is normal, Patient is cooperative and pleasant 08:56 ENT: No pharyngeal edema appreciated, right lower gingival swelling appreciated. Vital Signs: 08:55 BP 149 / 92; Pulse 90; Resp 16; Temp 98.3; Pulse Ox 100% ; Weight 108.86 kg; Height 5 hb ft. 3 in. ; Pain 0/10; 08:55 Body Mass Index 42.51 (108.86 kg, 160.02 cm) hb 08:55 Pain Scale: Adult hb MDM: 08:56 Patient medically screened. [facility] 13:52 Differential diagnosis: Allergic reaction, dental abscess, gingivitis, Cory's. Data [facility] reviewed: vital signs, nurses notes, radiologic studies, CT scan. I considered the following discharge prescriptions or medication management in the emergency department. Counseling: I had a detailed discussion with the patient and/or guardian regarding: the historical points, exam findings, and any diagnostic results supporting the discharge/admit diagnosis, the need for outpatient follow up, to return to the emergency department if symptoms worsen or persist or if there are any questions or concerns that arise at home. ED course: Patient is alert nontoxic in appearance NAD. Patient is afebrile. Will prescribe oral antibiotics otherwise advised to follow-up with PCP or dentist for reevaluation. Patient otherwise given strict return precautions. Patient understood and agrees plan of care.. 10/25 08:57 Order name: CT Soft Tissue Neck W/contr; Complete Time: 10:18 [facility] 10/25 08:57 Order name: Saline Lock; Complete Time: 09:12 [facility] Administered Medications: No medications were administered Disposition Summary: 10/25/22 10:19 Discharge Ordered Location: Home [facility] Condition: Stable [facility] Diagnosis - Gingivitis [facility] Followup: [facility] - With: Private Physician - When: 2 - 3 days - Reason: Recheck today's complaints, Continuance of care, Re-evaluation by your physician Discharge Instructions: - Discharge Summary Sheet [facility] - Gingivitis [facility] Forms: - Medication Reconciliation Form [facility] - Thank You Letter [facility] - Antibiotic Education [facility] - Prescription Opioid Use [facility] Prescriptions: - Peridex 0.12 % Mucous Membrane Mouthwash - swish 15 milliliter by BUCCAL route 2 times per day for 14 days; 1 unit; [facility] Refills: 0, Product Selection Permitted - Amoxicillin 875 mg Oral Tablet - take 1 tablet by ORAL route every 12 hours for 10 days; 20 tablet; Refills: 0, jmm Product Selection Permitted Signatures: Dispatcher [employer] EDBarron Schmidt PA PA jmm Baxter, Heather, RN RN hb
--- NOTE | 2022-10-25 10:20 | ER ---
Nurse's Notes [facility] Name: Gifty Singletary Age: 47 yrs Sex: Female : 1975 Arrival Date: 10/25/2022 Time: 08:43 Bed 11 Private MD: Diagnosis: Gingivitis Presentation: 10/25 08:55 Chief complaint: Lower lip and lower facial swelling that started yesterday afternoon. hb Denies pain/SOB. Coronavirus screen: At this time, the client does not indicate any symptoms associated with coronavirus-19. Ebola Screen: No symptoms or risks identified at this time. Initial Sepsis Screen: Does the patient meet any 2 criteria? No. Patient's initial sepsis screen is negative. Does the patient have a suspected source of infection? No. Patient's initial sepsis screen is negative. Risk Assessment: Do you want to hurt yourself or someone else? Patient reports no desire to harm self or others. Onset of symptoms was October 24, 2022. 08:55 Method Of Arrival: Ambulatory 08:55 Acuity: ODILIA 4 hb 08:57 Acuity: ODILIA 3 hb Triage Assessment: 08:56 General: Appears in no apparent distress. Behavior is calm, cooperative. Pain: Denies hb pain. Neuro: Level of Consciousness is awake, alert, obeys commands, Oriented to person, place, time, situation. Cardiovascular: Patient's skin is warm and dry. Respiratory: Respiratory effort is even, unlabored, Respiratory pattern is regular, symmetrical. Historical: - Allergies: 08:56 No Known Allergies; hb - Home Meds: 08:56 None [Active]; hb - PMHx: 08:56 Asthma; hb - PSHx: 08:56 Cholecystectomy; hb - Immunization history:: Adult Immunizations up to date. - Social history:: Smoking status: Patient denies any tobacco usage or history of. Screenin:57 [facility] ED Fall Risk Assessment (Adult) Score/Fall Risk Level 0 - 2 = Low Risk hb Oriented to surroundings, Maintained a safe environment. Abuse screen: Denies threats or abuse. Denies injuries from another. Nutritional screening: No deficits noted. Tuberculosis screening: No symptoms or risk factors identified. Assessment: 08:57 General: See triage assessment . hb 10:07 Reassessment: Patient appears in no apparent distress at this time. Patient and/or hb family updated on plan of care and expected duration. Pain level reassessed. Patient is alert, oriented x 3, equal unlabored respirations, skin warm/dry/pink. Vital Signs: 08:55 BP 149 / 92; Pulse 90; Resp 16; Temp 98.3; Pulse Ox 100% ; Weight 108.86 kg; Height 5 hb ft. 3 in. ; Pain 0/10; 08:55 Body Mass Index 42.51 (108.86 kg, 160.02 cm) hb 08:55 Pain Scale: Adult hb ED Course: 08:44 Patient arrived in ED. am2 08:50 Barron Cardenas PA is PHCP. [facility] 08:50 Vineet Reed MD is Attending Physician. [facility] 08:56 Triage completed. hb 08:56 Arm band placed on. hb 08:57 Patient has correct armband on for positive identification. hb 09:12 Nadja Pro, RN is Primary Nurse. hb 09:12 Inserted saline lock: 20 gauge in right antecubital area, using aseptic technique. hb 09:44 CT Soft Tissue Neck W/contr In Process Unspecified. EDMS 10:26 No provider procedures requiring assistance completed. IV discontinued, intact, hb bleeding controlled, No redness/swelling at site. Administered Medications: No medications were administered Medication: 08:57 VIS not applicable for this client. hb Outcome: 10:19 Discharge ordered by . [facility] 10:26 Discharged to home ambulatory. hb 10:26 Condition: stable 10:26 Discharge instructions given to patient, Instructed on discharge instructions, follow up and referral plans. medication usage, Demonstrated understanding of instructions, follow-up care, medications, Prescriptions given X 1. 10:27 Patient left the ED. hb Signatures: Dispatcher [employer] EDMS Barron Cardenas PA PA jmm Baxter, Heather, RN RN Shelia Mondragon am2
[2022-10-25 10:42] VITALS: BP 149/92; TEMP 98.3; O2SAT 100
== END 2022-10-25 10:27 | disposition home or self-care (01) ==
LOC: ER 08:43
DX: K05.10 Chronic gingivitis, plaque induced (principal)
CPT/HCPCS: 70491; 82565; 99283; Q9967

== ENCOUNTER 2023-11-09 13:33 | Emergency (ER) | payer OTHER ==
--- OUTSIDE RECORDS SUMMARY | 2023-11-09 13:37 | XMS REPORT | Continuity of Care Document ---
Author Name Unknown Address [address] [place] [address] [facility] thconnect Address 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 Role Phone Justice Javed Primary Care Physician Un available LIANNE AYALA Attending Clinician Unavailable JUAN CARLOS TORRES Attending Clinician Unavailab RAYO Rojas Attending Clinician Unavailable LAB90 Attending Clinician Unavailable CHUNG YOUNG Attending Clinician Unava MARY Summers Attending Clinician Unavailable ENE HUNG Attending Clinician Unavaila Ene Ferrell CNM Attending Clinician [phone] Doctor Unassigned, [place] Attending Clinician U CHANA Barkley Attending Clinician Unavail able ESDRAS HERR Attending Clinician Unavailable ESDRAS HERR Attending Clinician Unavailable Only, [facility] Test Attending Clinician Unavailabl e Unknown, Attending Attending Clinician Unavailab Iris Jane Attending Clinicia n IRIS DAY Attending Clinician Un available Linda Alfaro RN Attending Clinician Unavailable Fauzia Blankenship Attending Clinician [phone] FAUZIA MERCADO Attending Clinician Unavailabl DEVONTE Jimenez Attending Clinician Unavail able Devonte Michael MD Attending Clinician GIOVANNI DOUGLASS Attending Clinician Unavailable ALBERTO GARCIA Attending Clinician Unavailable Alberto Garcia MD Attending Clinician [phone] GIOVANNI DOUGLASS Admitting Clinician Unavailable ALBERTO GARCIA Admitting Clinician Unavailable Payers Payer Name Policy Type Policy Number Effective Date Expirati on Date Source MAURILIO OVIEDO MAYKEL HINES S O CERTIFIED PROFESSIONAL MIDWIFE 94 ON 9 [id number] 2023 00:00:00 [facility] [id number] 2021 00:00:00 Problems Condition Name Condition Details Condition Category Status Onset Date Resolution Date Last Treatment Date Treating Clinician Comments Source Well adult exam Well adult exam Disease Active 11-04 00:00: 00 Susan Amayaa hiram Class 3 severe obesity due to excess calories without serious comorbidit y with body mass index (BMI) of 40.0 to 44.9 in adult Class 3 severe obesity due to excess calories without serious comorbidit y with body mass index (BMI) of 40.0 to 44.9 in adult Disease Active 08-06 00:00: 00 Susan Amayaa hiram Encounter for screening for diabetes mellitus Encounter for screening for diabetes mellitus Disease Active 08-06 00:00: 00 Susan Amayaa hiram Unable to lose weight Unable to lose weight Disease Active 08-06 00:00: 00 Susan Gonzalez Externa hiram Mild intermitte nt asthma without complicati on (HHS-HCC) Mild intermitte nt asthma without complicati on (HHS-HCC) Disease Active 08-06 00:00: 00 Susan Amayaa hiram Family history of hypertensi on Family history of hypertensi on Disease Active 08-06 00:00: 00 Susan gandhi Atypical chest pain Atypical chest pain Disease Active 7- 00:00: 00 [facility] of family member of family member Disease Active 06-04 00:00: 00 [facility] Feeling of sadness Feeling of sadness Disease Active 06-04 00:00: 00 [facility] Menorrhagi a with regular cycle Menorrhagi a with regular cycle Disease Active 2016-06 00:00: 00 [facility] Morbid obesity Morbid obesity Disease Active 2016-06 00:00: 00 [facility] History of tubal ligation History of tubal ligation Disease Active 01-12 00:00: 00 [facility] History of hypertensi on History of hypertensi on Disease Active 01-12 00:00: 00 [facility] Screening for STDs (sexually transmitte d diseases) Screening for STDs (sexually transmitte d diseases) Disease Active 01-11 00:00: 00 Overview: Formattin g of this note might be different from the original. ICD10 Diagnosis Term [employer] [facility] Asthma Asthma Disease Active 01-11 00:00: 00 Overview: Formattin g of this note might be different from the original. ICD10 Diagnosis Term [employer] [facility] Allergies, Adverse Reactions, Alerts Allergy Name Allergy Type Status Severity Reaction(s) Onset Date Inactive Date Treating Clinician Comments Source NO KNOWN ALLERGIE S Drug Class Active [facility] Social History Social Habit Start Date Stop Date Quantity Comments Source History of tobacco use Cigarette Smoker [facility] History SDOH Alcohol Frequency [facility] History SDOH Alcohol Std Drinks [facility] History SDOH Alcohol Binge [facility] Sexual orientation Dana Quiñonez - External History of Social function 2023-11-05 00:00:00 2023-11-05 00:00:00 Susan Quiñonez - External Alcoholic beverage intake 2023-11-05 00:00:00 2023-11-05 00:00:00 Current drinker of alcohol (finding) Susan Quiñonez - External Tobacco use and exposure 2023-08-07 00:00:00 2023-08-07 00:00:00 Smokeless tobacco non-user Susan Quiñonez - External Alcohol intake 2023-05-05 00:00:00 2023-05-05 00:00:00 Ex-drinker (finding) [facility] Exposure to SARS-CoV-2 (event) 2022-03-03 00:00:00 2022-03-13 11:16:[address] [facility] Alcohol Comment 2015-01-11 00:00:00 2015-01-11 00:00:[address] [facility] Sex assigned at 1975 00:00:00 1975 00:00:00 Susan Robbins Smoking Status Start Date Stop Date Source Never smoked tobacco Susan Gonzalez External Ex-smoker 2023-05-05 00:00:00 2023-05-05 00:00:00 [facility] Occasional tobacco smoker 2015-01-11 00:00:00 [facility] Medications Ordered Medication Name Filled Medication Name Start Date Stop Date Current Medication? Ordering Clinician Indication Dosage Frequency Signature (SIG) Comments Components Source Topiramate 25 MG oral Tablet 11-01 00:00: 00 Yes [id number] 104 25mg Take 1 tablet (25 mg total) by mouth 2 times daily. Susan gandhi Oxybutynin Chloride 10 MG oral TABLET SR 24 HR 10-17 00:00: 00 Yes [id number] 10mg Take 1 tablet (10 mg total) by mouth daily. Susan gandhi Albuterol HFA 108 (90 Base) MCG/ACT IN AERS 09-02 00:00: 00 Yes [id number] 2{puff} Q.25D Inhale 2 puffs into the lungs every 6 hours as needed for wheezing. Susan gandhi Benzonatate (Tessalon Perles) 100 MG oral Capsule 08-31 00:00: 00 Yes [id number] 100mg Q.[id number] 3D Take 1 capsule (100 mg total) by mouth 3 times daily as needed for cough. Susan gandhi Semaglutide -CARLOSGOADINA-Anjel ght Management 0.25 MG/0.5ML Subcutaneou s Solution Auto-inject or 08-31 00:00: 00 Yes [id number] .25mg Inject 0.25 mg into the skin once a week. Susan gandhi Cefdinir 300 MG oral Capsule 08-18 00:00: 00 08-31 00:00 :00 No [id number] 300mg Take 1 capsule (300 mg total) by mouth 2 times daily Please take with food. Susan gandhi Albuterol HFA 108 (90 Base) MCG/ACT IN AERS 08-06 00:00: 00 Yes [id number] 2{puff} Q.25D Inhale 2 puffs into the lungs every 6 hours as needed for wheezing. Susan gandhi cephALEXin (KEFLEX) capsule 500 mg 2021-06 17:30: 00 03-13 17:54 :00 No 500mg 500 mg, Oral, ONCE, 1 dose, On Laura 03/13/22 at 1230, BRITNEY
Re ason for Anti-Infec tive: Documented Infection< br>Documen bethel Infection Site: Skin / Soft Tissue
Duration of Therapy: 10 days [facility] ibuprofen 600 mg tablet 2021-06 00:00: 00 05-05 00:00 :00 No [id number] 600mg Take 1 tablet by mouth every 6 (six) hours as needed for Pain (scale 4-6) for up to 30 doses. [facility] cephALEXin 500 mg capsule 2021-06 00:00: 03-24 04:59 :00 No [id number] 1000mg Take 2 capsules by mouth in the morning and 2 capsules in the evening. Do all this for 10 days. [facility] azithromyci n 250 mg tablet 12-03 00:00: 00 05-05 00:00 :00 No [id number] 250mg Take 1 tablet by mouth SEE-INSTRU CTIONS. Take 500 mg day 1, then 250 mg days 2 to 5. [facility] benzonatate 100 mg capsule 12-03 00:00: 00 05-05 00:00 :00 No [id number] 100mg Take 1 capsule by mouth every 8 (eight) hours as needed for Cough. [facility] terconazole 0.8 % vaginal cream 06-04 00:00: 00 05-05 00:00 :00 No [id number] 1{appli cator} Insert 1 Applicator into vagina at bedtime. [facility] Immunizations Ordered Immunization Name Filled Immunization Name Date Status Comments Source Influenza Virus Vaccine Quad .5 mL IM 6+ MO 2018-06-04 00:00:[address] [facility] Influenza Virus Vaccine Quad .5 mL IM 6+ MO 2018-06-04 00:00:[address] [facility] TDAP 2015-01-11 00:00:[address] [facility] TDAP 2015-01-11 00:00:[address] [facility] Tdap- (Boostrix, Adacel) Unknown Completed Susan Seybold - External Influenza Virus Vaccine, No Preserv, age 6 months and up Unknown Completed Susan Seybold - External Influenza Virus Vaccine, No Preserv, age 6 months and up Unknown Completed Susan Seybold - External Tdap- (Boostrix, Adacel) Unknown Completed Susan Seybold - External Influenza Virus Vaccine, No Preserv, age 6 months and up Unknown Completed Susan Seybold - External Influenza Virus Vaccine, No Preserv, age 6 months and up Unknown Completed Susan Seybold - External Tdap- (Boostrix, Adacel) Unknown Completed Susan Seybold - External TDAP Unknown Completed [facility] Influenza Virus Vaccine Quad .5 mL IM 6+ MO (FLUZONE/FLULAVAL/F LUARIX) Unknown Completed [facility] TDAP Unknown Completed [facility] Influenza Virus Vaccine Quad .5 mL IM 6+ MO (FLUZONE/FLULAVAL/F LUARIX) Unknown Completed [facility] TDAP Unknown Completed [facility] Influenza Virus Vaccine Quad .5 mL IM 6+ MO (FLUZONE/FLULAVAL/F LUARIX) Unknown Completed [facility] Influenza Virus Vaccine Quad .5 mL IM 6+ MO (FLUZONE/FLULAVAL/F LUARIX) Unknown Completed [facility] TDAP Unknown Completed [facility] Influenza Virus Vaccine Quad .5 mL IM 6+ MO (FLUZONE/FLULAVAL/F LUARIX) Unknown Completed [facility] Influenza Virus Vaccine Quad .5 mL IM 6+ MO (FLUZONE/FLULAVAL/F LUARIX) Unknown Completed [facility] TDAP Unknown Completed [facility] Influenza Virus Vaccine Quad .5 mL IM 6+ MO (FLUZONE/FLULAVAL/F LUARIX) Unknown Completed [facility] Influenza Virus Vaccine Quad .5 mL IM 6+ MO (FLUZONE/FLULAVAL/F LUARIX) Unknown Completed [facility] TDAP Unknown Completed [facility] Influenza Virus Vaccine Quad .5 mL IM 6+ MO (FLUZONE/FLULAVAL/F LUARIX) Unknown Completed [facility] Influenza Virus Vaccine Quad .5 mL IM 6+ MO (FLUZONE/FLULAVAL/F LUARIX) Unknown Completed [facility] TDAP Unknown Completed [facility] Influenza Virus Vaccine Quad .5 mL IM 6+ MO (FLUZONE/FLULAVAL/F LUARIX) Unknown Completed [facility] Influenza Virus Vaccine Quad .5 mL IM 6+ MO (FLUZONE/FLULAVAL/F LUARIX) Unknown Completed [facility] TDAP Unknown Completed [facility] Influenza Virus Vaccine Quad .5 mL IM 6+ MO (FLUZONE/FLULAVAL/F LUARIX) Unknown Completed [facility] Influenza Virus Vaccine Quad .5 mL IM 6+ MO (FLUZONE/FLULAVAL/F LUARIX) Unknown Completed [facility] TDAP Unknown Completed [facility] Influenza Virus Vaccine Quad .5 mL IM 6+ MO (FLUZONE/FLULAVAL/F LUARIX) Unknown Completed [facility] Influenza Virus Vaccine Quad .5 mL IM 6+ MO (FLUZONE/FLULAVAL/F LUARIX) Unknown Completed [facility] Influenza Virus Vaccine, No Preserv, age 6 months and up Unknown Completed Susan Gonzalez External Influenza Virus Vaccine, No Preserv, age 6 months and up Unknown Completed Susan Quiñonez - External Vital Signs Vital Name Observation Time Observation Value Comments S ource Systolic blood pressure 2023-11-05 14:23:00 124 mm[Hg] Susan Seybo ld - External Diastolic blood pressure 2023-11-05 14:23:00 78 mm[Hg] Susan Seybo ld - External Heart rate 2023-11-05 14:23:00 78 /min Kelse y Seybold - External Body temperature 2023-11-05 14:23:00 36.72 Diana Susan Seybold - External Respiratory rate 2023-11-05 14:23:00 18 /min Susan Seybold - External Body height 2023-11-05 14:23:00 160 cm Olamide ey Seybold - External Body weight 2023-11-05 14:23:00 106.142 kg Olamide ey Seybold - External BMI 2023-11-05 14:23:00 41.45 kg/m2 Olamide ey Seybold - External Oxygen saturation in Arterial blood by Pulse oximetry 2023-11-05 14:23:00 97 /min Susan Seybo ld - External Systolic blood pressure 2023-09-01 18:26:00 124 mm[Hg] Susan Seybo ld - External Diastolic blood pressure 2023-09-01 18:26:00 80 mm[Hg] Susan Seybo ld - External Heart rate 2023-09-01 18:26:00 88 /min Dayronse y Seybold - External Body temperature 2023-09-01 18:26:00 37 Diana Susan Seybold - External Respiratory rate 2023-09-01 18:26:00 16 /min Susan Seybold - External Body height 2023-09-01 18:26:00 160 cm Olamide ey Seybold - External Body weight 2023-09-01 18:26:00 106.595 kg Olamide ey Seybold - External BMI 2023-09-01 18:26:00 41.63 kg/m2 Olamide ey Seybold - External Oxygen saturation in Arterial blood by Pulse oximetry 2023-09-01 18:26:00 97 /min Susan Seybo ld - External Systolic blood pressure 2023-08-07 20:04:00 118 mm[Hg] Susan Seybo ld - External Diastolic blood pressure 2023-08-07 20:04:00 80 mm[Hg] Susan Seybo ld - External Heart rate 2023-08-07 20:04:00 76 /min Travis Quiñonez - External Body temperature 2023-08-07 20:04:00 36.33 Diana Susan Quiñonez - External Respiratory rate 2023-08-07 20:04:00 16 /min Susan Quiñonez - External Body height 2023-08-07 20:04:00 160 cm Olamide Quiñonez - External Body weight 2023-08-07 20:04:00 106.765 kg Olamide Quiñonez - External BMI 2023-08-07 20:04:00 41.69 kg/m2 Olamide Quiñonez - External Oxygen saturation in Arterial blood by Pulse oximetry 2023-08-07 20:04:00 98 /min Susan Castellanos ld - External Systolic blood pressure 2023-05-05 19:14:00 143 mm[Hg] [facility] acute hospital Diastolic blood pressure 2023-05-05 19:14:00 84 mm[Hg] [facility] acute hospital Heart rate 2023-05-05 19:14:00 80 /min [facility] Body temperature 2023-05-05 19:10:[address] [facility] Respiratory rate 2023-05-05 19:10:00 20 /min [facility] Body height 2023-05-05 19:10:00 154.9 cm [facility] Body weight 2023-05-05 19:10:00 105.461 kg [facility] BMI 2023-05-05 19:10:00 43.93 kg/m2 [facility] Systolic blood pressure 2022-03-13 17:57:00 136 mm[Hg] General acute hospital Diastolic blood pressure 2022-03-13 17:57:00 86 mm[Hg] General acute hospital Heart rate 2022-03-13 17:57:00 81 /min [facility] Respiratory rate 2022-03-13 17:57:00 16 /min [facility] Oxygen saturation in Arterial blood by Pulse oximetry 2022-03-13 17:57:00 100 /min [facility] acute hospital Body temperature 2022-03-13 16:17:[address] [facility] Body height 2022-03-13 16:14:00 154.9 cm [facility] Body weight 2022-03-13 16:14:00 104.327 kg [facility] BMI 2022-03-13 16:14:00 43.46 kg/m2 [facility] Procedures Procedure Date / Time Performed Performing Clinician Source HIGH RISK HPV-THIN PREP 2023-05-05 20:24:[address] [facility] PAP SMEAR-LIQUID BASED-CP 2023-05-05 20:24:[address] [facility] THYROID STIMULATING HORMONE 2023-05-05 20:07:[address] [facility] LIPID PANEL (85677)(TOTAL CHOLESTEROL, TRIGLYCERIDES, HDL) 2023-05-05 20:07:[address] [facility] CBC WITH DIFF 2023-05-05 20:07:[address] [facility] GLYCOSYLATED HEMOGLOBIN (A1C) 2023-05-05 20:07:[address] [facility] "RWSP DAMIAN ONLY" FLU VACC(), 6+ MONTHS, IM, QUAD (FLUZONE/FLULAVAL/FLUAR IX) 2023-05-05 19:28:[address] [facility] CONSENT/REFUSAL FOR DIAGNOSIS AND TREATMENT 2023-05-05 18:45:25 Doctor Unassigned, [place] [facility] Encounters Start Date/Time End Date/Time Encounter Type Admission Type Attending Clinicians Care Facility Care Department Encounter ID Source 2024-04-15 13:30:00 2024-04-15 13:30:00 Outpatient LIANNE AYALA [id number] Susan Quiñonez 2024-02-05 11:00:00 2024-02-05 11:00:00 Outpatient JUAN CARLOS TORRES [id number] Susan Quiñonez 2023-11-18 14:00:00 2023-11-18 14:00:00 Outpatient RAYO SEARS [id number] Susan Quiñonez 2023-11-05 10:15:00 2023-11-05 10:15:00 Outpatient LAB90 SUSAN JORDAN [id number] Susan Seybold 2023-11-05 09:30:00 2023-11-05 09:30:00 Outpatient JUAN CARLOS TORRES SUSAN JORDAN [id number] [facility] 2023-11-05 00:00:00 2023-11-05 00:00:00 Outpatient SUSAN JORDAN [id number] [facility] 2023-11-04 15:00:00 2023-11-04 15:00:00 Outpatient SUSAN JRODAN [id number] [facility] 2023-10-30 08:30:00 2023-10-30 08:30:00 Outpatient RAYO SEARS [id number] [facility] 2023-10-27 11:30:00 2023-10-27 11:30:00 Outpatient MELISSAJUAN CARLOS SUSAN JORDAN [id number] [facility] 2023-10-22 00:00:00 2023-10-22 00:00:00 Outpatient HANNAH CHUNG SUSAN JORDAN [id number] [facility] 2023-10-19 00:00:00 2023-10-19 00:00:00 Outpatient JUAN CARLOS TORRES SUSAN JORDAN [id number] [facility] 2023-10-18 00:00:00 2023-10-18 00:00:00 Outpatient JUAN CARLOS TORRES SUSAN JORDAN [id number] [facility] 2023-10-15 00:00:00 2023-10-15 00:00:00 Outpatient JUAN CARLOS TORRES SUSAN JORDAN [id number] Susan Seybold 2023-10-02 14:00:00 2023-10-02 14:00:00 Outpatient RAYO SEARS [id number] Susan Seybold 2023-10-02 12:40:00 2023-10-02 12:40:00 Outpatient SUSAN JORDAN [id number] Susan Seybold 2023-10-02 09:00:00 2023-10-02 09:00:00 Outpatient MELISSA JUAN CARLOS SUSAN JORDAN [id number] [facility] 2023-09-28 00:00:00 2023-09-28 00:00:00 Outpatient JUAN CARLOS TORRES SUSAN [id number] [facility] 2023-09-24 00:00:00 2023-09-24 00:00:00 Outpatient JUAN CARLOS TORRES SUSAN [id number] [facility] 2023-09-22 00:00:00 2023-09-22 00:00:00 Outpatient JUAN CARLOS TORRES SUSAN [id number] [facility] 2023-09-22 00:00:00 2023-09-22 00:00:00 Outpatient MELISSA, JUAN CARLOS SUSAN JORDAN [id number] [facility] 2023-09-22 00:00:00 2023-09-22 00:00:00 Outpatient THERESAMARY PRASAD SUSAN JORDAN [id number] [facility] 2023-09-15 00:00:00 2023-09-15 00:00:00 Outpatient JUAN CARLOS TORRES SUSAN [id number] [facility] 2023-09-11 00:00:00 2023-09-11 00:00:00 Outpatient JUAN CARLOS TORRES SUSAN JORDAN [id number] [facility] 2023-09-04 11:00:00 2023-09-04 11:00:00 Outpatient JUAN CARLOS TORRES SUSAN JORDAN [id number] [facility] 2023-09-01 14:15:00 2023-09-01 14:15:00 Outpatient LABAnna SUSAN JORDAN [id number] Susan Seybold 2023-09-01 13:30:00 2023-09-01 13:30:00 Outpatient JUAN CARLOS TORRES SUSAN JORDAN [id number] Susan Seybold 2023-08-29 00:00:00 2023-08-29 00:00:00 Outpatient JUAN CARLOS TORRES SUSAN JORDAN [id number] Susan Seybold 2023-08-19 00:00:00 2023-08-19 00:00:00 Outpatient JUAN CARLOS TORRES SUSAN JORDAN [id number] Susan Quiñonez 2023-08-19 00:00:00 2023-08-19 00:00:00 Outpatient JUAN CARLOS TORRES SUSAN [id number] Susan Quiñonez 2023-08-19 00:00:00 2023-08-19 00:00:00 Outpatient JUAN CARLOS TORRESSARTHAK JORDAN [id number] Susan Quiñonez 2023-08-14 08:10:00 2023-08-14 08:10:00 Outpatient LAB90 SUSAN SUSAN [id number] Susan Quiñonez 2023-08-07 14:00:00 2023-08-07 14:00:00 Outpatient JUAN CARLOS TORRES SUSAN JORDAN [id number] Susan Quiñonez 2023-07-22 07:10:06 2023-07-22 23:59:00 Outpatient ENE CHEUNG 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 [facility] .840.114 [id number] [id number] [id number] [facility] 2023-05-06 00:00:00 2023-05-06 00:00:00 Telephone Ene Hung [facility] BOOK SEWING MACHINE OPERATOR [facility] CHILD [facility] ..840.114 350.1.13.10 [id number] [id number] [facility] 2023-05-06 00:00:00 2023-05-06 00:00:00 Patient Secure Msg Doctor Unassigned, [place] [facility] 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 [id number] [facility] 2023-05-05 00:00:00 2023-05-05 00:00:00 Orders Only Doctor Unassigned, [place] [facility] 1.0.114 350.1.13.10 4.2.7.2.686 [id number] [facility] 2023-05-05 00:00:00 2023-05-05 00:00:00 Letter (Out) Ene Hung [facility] BOOK SEWING MACHINE OPERATOR [facility] CHILD [facility] 1.20.114 350.1.13.10 4.2.7.2.686 [id number] [facility] 2022-03-13 11:16:00 2022-03-13 13:37:00 Emergency X ESDRAS HERR TIMOTHY LADAMIEN ERT [id number] [facility] 2022-03-13 11:16:00 2022-03-13 13:37:00 Emergency Esdras Herr LADAMIEN [facility] 1.20.114 350.1.13.10 4.2.7.2.686 [id number] [facility] 2021-12-13 10:30:00 2021-12-13 11:10:07 Laboratory Only Only, [facility] U[facility] Test Unknown, Attending Iris Day [facility] [id number] 350.1.13.10 4.2.7.2.686 [id number] [facility] 2021-12-13 10:30:00 2021-12-13 11:10:07 Outpatient IRIS AGUIRRE [facility] [id number] [facility] 2021-12-13 10:30:00 2021-12-13 10:30:00 Outpatient IRIS AGUIRRE [facility] [id number] [facility] 2021-12-08 00:00:00 2021-12-08 00:00:00 Patient Secure Msg Doctor Unassigned, [facility] 1.2840.114 350.1.13.10 4.2.7.2.686 [id number] [facility] 2021-12-07 00:00:00 2021-12-07 00:00:00 Letter (Out) Linda Alfaro [facility] 1.2840.114 350.1.13.10 4.2.7.2.686 [id number] [id number] [facility] 2021-12-06 12:30:00 2021-12-06 13:55:38 Urgent Care Fauzia Mercado Unknown, Attending [facility] 1.2840.114 350.1.13.10 4.2.7.2.686 [id number] [facility] 2021-12-06 12:30:00 2021-12-06 13:55:38 Outpatient R FAUZIA MERCADO [facility] [id number] [facility] 2021-12-06 12:30:00 2021-12-06 12:30:00 Outpatient R FAUZIA MERCADO [facility] [id number] [facility] 2021-12-03 11:54:00 2021-12-03 14:38:00 Emergency X DEVONTE MICHAEL [facility] ERT [id number] [facility] 2021-12-03 11:54:00 2021-12-03 14:38:00 Emergency X DEVONTE MICHAEL [facility] ERT [id number] [facility] 2021-12-03 11:54:00 2021-12-03 14:38:00 Emergency X DEVONTE MICHAEL [facility] ERT [id number] [facility] 2021-12-03 11:54:00 2021-12-03 14:38:00 Emergency Devonte Michael [facility] [id number] 350.1.13.10 4.2.7.2.686 [id number] [facility] 2021-12-02 10:04:00 2021-12-02 11:31:00 Emergency X JOHNR, GIOVANNI [facility] ERT [id number] [facility] 2021-12-02 10:04:00 2021-12-02 11:31:00 Emergency X BRODYHIR, GIOVANNI [facility] ERT [id number] [facility] 2021-12-02 10:04:00 2021-12-02 11:31:00 Emergency X SANDHIR, GIOVANNI [facility] ERT [id number] [facility] 2021-12-02 10:04:00 2021-12-02 11:31:00 Emergency Sandhir, [facility] [id number] 350.1.13.10 4.2.7.2.686 [id number] [facility] 2021-10-13 10:34:00 2021-10-13 13:27:00 Emergency X ALBERTO GARCIA [facility] ERT [id number] [facility] 2021-10-13 10:34:00 2021-10-13 13:27:00 Emergency Alberto Garcia C [facility] ([facility]) [id number] 350.1.13.10 4.2.7.2.686 [id number] [facility] Results Test Description Test Time Test Comments Results Result Co mments Source [facility]GLOBIN (A1C)2023-05-06 14:14:21* Test Item Value Reference Range Interpretation Comme nts HGB A1C (test code = 4548-4) 6.0 % 4.0-5.7 H ABBY (test code = ABBY) Reference RangesNormal: <5.7%Prediabetes: 5.7 - 6.4%Diabetes: > 6.5% Lab Interpretation (test code = 65381-4) Abnormal [facility] STIMULATING [id number] 06:17:06 * Test Item Value Reference Range Interpretation Comme nts TSH (test code = 9578896530) 1.65 See_Comment [Automated messa ge] The system which generated this result transmitted reference range: 0.45 - 4.70 mIU/L. The reference range was not used to interpret this result as normal/abnormal. Lab Interpretation (test code = 31003-3) Normal [facility] CenterTHY[facility] STIM[facility] [id number] 06:17:06 * Test Item Value Reference Range Interpretation Comme nts TSH (test code = 2729846323) 1.65 See_Comment [Automated messa ge] The system which generated this result transmitted reference range: 0.45 - 4.70 mIU/L. The reference range was not used to interpret this result as normal/abnormal. Lab Interpretation (test code = 39743-1) Normal [facility] CenterCBC WITH [id number] 05:58:45* Test Item Value Reference Range Interpretation Comme nts WBC (test code = 6690-2) 10.83 See_Comment [Automated messa ge] The system which generated this result transmitted reference range: 4.30 - 11.10 10*3/?L. The reference range was not used to interpret this result as normal/abnormal. RBC (test code = 789-8) 4.79 See_Comment [Automated Exuru!a ge] The system which generated this result transmitted reference range: 3.93 - 5.25 10*6/?L. The reference range was not used to interpret this result as normal/abnormal. HGB (test code = 718-7) 11.7 g/dL 11.6-15.0 HCT (test code = 4544-3) 37.6 % 35.7-45.2 MCV (test code = 787-2) 78.5 fL 80.6-95.5 L MCH (test code = 785-6) 24.4 pg 25.9-32.8 L MCHC (test code = 786-4) 31.1 g/dL 31.6-35.1 L RDW-SD (test code = 88823-9) 47.2 fL 39.0-49.9 RDW-CV (test code = 788-0) 16.6 % 12.0-15.5 H PLT (test code = 777-3) 339 See_Comment [Automated Exuru!a ge] The system which generated this result transmitted reference range: 166 - 358 10*3/?L. The reference range was not used to interpret this result as normal/abnormal. MPV (test code = 91487-6) 10.9 fL 9.5-12.9 NRBC/100 WBC (test code = 4428881929) 0.0 See_Comment [Automated Voucheres ssage] The system which generated this result transmitted reference range: 0.0 - 10.0 /100 WBCs. The reference range was not used to interpret this result as normal/abnormal. NRBC x10^3 (test code = 7460513075) See_Comment [Automated Exuru!a ge] The system which generated this result transmitted reference range: 10*3/?L. The reference range was not used to interpret this result as normal/abnormal. GRAN MAT (NEUT) % (test code = 770-8) 65.8 % IMM GRAN % (test code = 2155972792) 0.20 % LYMPH % (test code = 736-9) 24.1 % MONO % (test code = 5905-5) 6.4 % EOS % (test code = 713-8) 2.9 % BASO % (test code = 706-2) 0.6 % GRAN MAT x10^3(ANC) (test code = 3789797552) 7.14 10*3/uL 1.88-7.09 H IMM GRAN x10^3 (test code = 0982860180) 0.00-0.06 LYMPH x10^3 (test code = 731-0) 2.61 10*3/uL 1.32-3.29 MONO x10^3 (test code = 742-7) 0.69 10*3/uL 0.33-0.92 EOS x10^3 (test code = 711-2) 0.31 10*3/uL 0.03-0.39 BASO x10^3 (test code = 704-7) 0.06 10*3/uL 0.01-0.07 Lab Interpretation (test code = 52021-7) Abnormal [facility] WITH [id number] 05:58:45* Test Item Value Reference Range Interpretation Comme nts WBC (test code = 6690-2) 10.83 See_Comment [Automated Exuru!a ge] The system which generated this result transmitted reference range: 4.30 - 11.10 10*3/?L. The reference range was not used to interpret this result as normal/abnormal. RBC (test code = 789-8) 4.79 See_Comment [Automated Exuru!a ge] The system which generated this result transmitted reference range: 3.93 - 5.25 10*6/?L. The reference range was not used to interpret this result as normal/abnormal. HGB (test code = 718-7) 11.7 g/dL 11.6-15.0 HCT (test code = 4544-3) 37.6 % 35.7-45.2 MCV (test code = 787-2) 78.5 fL 80.6-95.5 L MCH (test code = 785-6) 24.4 pg 25.9-32.8 L MCHC (test code = 786-4) 31.1 g/dL 31.6-35.1 L RDW-SD (test code = 32682-3) 47.2 fL 39.0-49.9 RDW-CV (test code = 788-0) 16.6 % 12.0-15.5 H PLT (test code = 777-3) 339 See_Comment [Automated messa ge] The system which generated this result transmitted reference range: 166 - 358 10*3/?L. The reference range was not used to interpret this result as normal/abnormal. MPV (test code = 57707-7) 10.9 fL 9.5-12.9 NRBC/100 WBC (test code = 6726001811) 0.0 See_Comment [Automated me ssage] The system which generated this result transmitted reference range: 0.0 - 10.0 /100 WBCs. The reference range was not used to interpret this result as normal/abnormal. NRBC x10^3 (test code = 9179536157) See_Comment [Automated messa ge] The system which generated this result transmitted reference range: 10*3/?L. The reference range was not used to interpret this result as normal/abnormal. GRAN MAT (NEUT) % (test code = 770-8) 65.8 % IMM GRAN % (test code = 8418898494) 0.20 % LYMPH % (test code = 736-9) 24.1 % MONO % (test code = 5905-5) 6.4 % EOS % (test code = 713-8) 2.9 % BASO % (test code = 706-2) 0.6 % GRAN MAT x10^3(ANC) (test code = 9931672401) 7.14 10*3/uL 1.88-7.09 H IMM GRAN x10^3 (test code = 4746576360) 0.00-0.06 LYMPH x10^3 (test code = 731-0) 2.61 10*3/uL 1.32-3.29 MONO x10^3 (test code = 742-7) 0.69 10*3/uL 0.33-0.92 EOS x10^3 (test code = 711-2) 0.31 10*3/uL 0.03-0.39 BASO x10^3 (test code = 704-7) 0.06 10*3/uL 0.01-0.07 Lab Interpretation (test code = 53196-2) Abnormal [facility] CenterLIPID PANEL (47137)(TOTAL CHOLESTEROL, TRIGLYCERIDES, HDL)2023-05-06 05:43:23* Test Item Value Reference Range Interpretation Comme nts CHOL (test code = 3142462468) 224 mg/dL 120-200 H HDL (test code = 8618569054) 38 mg/dL >=50 L HDLC RATIO (test code = 2714149928) 5.9 <=4.5 H TRIG (test code = 6859690898) 254 mg/dL 30-170 H LDL CHOL (test code = 81143-1) 135 mg/dL <=160 VLDL (test code = 2102145925) 51 mg/dL 5-60 Lab Interpretation (test cod e = 11702-9) Abnormal [facility] CenterLIPID PANEL (47299)(TOTAL CHOLESTEROL, TRIGLYCERIDES, HDL)2023-05-06 05:43:23* Test Item Value Reference Range Interpretation Comme nts CHOL (test code = 2733776298) 224 mg/dL 120-200 H HDL (test code = 3057425720) 38 mg/dL >=50 L HDLC RATIO (test code = 0470457153) 5.9 <=4.5 H TRIG (test code = 3596779920) 254 mg/dL 30-170 H LDL CHOL (test code = 80784-6) 135 mg/dL <=160 VLDL (test code = 6702008366) 51 mg/dL 5-60 Lab Interpretation (test cod e = 92755-5) Abnormal [facility] CenterCOMPREHENSIVE METABOLIC [id number] 04:15:18* Test Item Value Reference Range Interpretation Comme nts GLUCOSE (test code = 2217) 90 MG/DL 70-99 BUN (test code = 2208) 14 MG/DL 6-20 CREATININE (test code = 2214) 0.77 MG/DL 0.60-1.30 eGFR (2020 CKD-EPI) (test code = 52256) 96 ML/MIN/1.73 >60 CALC BUN/CREAT (test code = 2235) 18 RATIO 6-28 SODIUM (test code = 2231) 141 MEQ/L 133-146 POTASSIUM (test code = 2228) 4.3 MEQ/L 3.5-5.4 CHLORIDE (test code = 2215) 103 MEQ/L 95-107 CARBON DIOXIDE (test code = 2206) 25 MEQ/L 19-31 CALCIUM (test code = 2209) 9.6 MG/DL 8.5-10.5 PROTEIN, TOTAL (test code = 2229) 7.6 G/DL 6.1-8.3 ALBUMIN (test code = 2201) 4.4 G/DL 3.5-5.2 CALC GLOBULIN (test code = 2240) 3.2 G/DL 1.9-3.7 CALC A/G RATIO (test code = 2234) 1.4 RATIO 1.0-2.6 BILIRUBIN, TOTAL (test code = 2207) <0.2 MG/DL See_Comment [Automated me ssage] The system which generated this result transmitted reference range: <=1.2. The reference range was not used to interpret this result as normal/abnormal. ALKALINE PHOSPHATASE (test code = 2204) 106 U/L 40-120 AST (test code = 2218) 15 U/L 9-40 ALT (test code = 2219) 12 U/L 5-40 UNLESS OTHERWISE INDICATED, ALL TESTING PERFORMED [facility] [address] [place] [address] MANAGER CONFIGURATION: REGINE FREGOSO M.D. CLIA NUMBER [id number] [facility] [place]. [id number] Notes Date/Time Note Provider Source 2023-11-05 09:28:24 [id number]:28:24F ormatting of this note is different from the original.Chief ComplaintPatient presents withPhysicalLabs done 4PNilam Hartectronically signed by Yana Guthrie LVN at 11/05/2023 9:30 AM [id number] TjewRU9863-44-89R53:30:24Nurse NoteTXT1.2.840.654906.1.13.131.2.7.2. 830759|[id number] for patient bvjf39022-0Mnqhc NoteLNNARRATIVEFormatted C-CDA narrative textKELWellSpan Good Samaritan HospitalKhang [address] Mueller [id number] 6252-08-15U60:30:241.2.840.718022.1.7 2.3.15|1.2.840.016733.1.13.131.2.7.2. [id number] [facility] 2023-09-01 13:30:39 5897-61-36Q97:30:39F ormatting of this note is different from the original.Chief ComplaintPatient presents withFollow-up1 month follow up. Has cough with dark yellow mucusPaula ANTONIO VillagomezN 66931-9Zxplz AsenJT2003-84-20H13:31:32Nurse NoteTXT1.2.840.644013.1.13.131.2.7.2. 969303|[id number] for patient qctz58973-3Fbcbb NoteLNNARRATIVEFormatted C-CDA narrative textAmery Hospital and [facility].[id number] 2135-52-49J04:31:321.2.840.377875.1.7 2.3.15|1.2.840.198568.1.13.131.2.7.2. [id number] [facility]
[2023-11-09] MEDS ORDERED: KETOROLAC 30 MG/ML INJ ONE (14:01)
[2023-11-09] MEDS ORDERED: ONDANSETRON 4 MG/2 ML VIAL ONE (14:01)
[2023-11-09 14:27] LABS: Specific Gravity 1.027 (1.005-1.030); Sqamous Epithelial <5 /HPF (None Seen); Urine Bacteria None Seen /HPF (<20); Urine Bilirubin NEGATIVE (Negative); Urine Blood Negative (Negative); Urine Clarity Turbid (Clear); Urine Color Yellow (Yellow); Urine Culture Reflex Order NOT NEEDED; Urine Glucose NEGATIVE (Negative); Urine Ketones 2+ (Negative); Urine Microscopic Reflex YN ORDER UMIC; Urine Mucus Slight /HPF (None Seen); Urine Nitrite NEGATIVE (Negative); Urine Protein TRACE (Negative); Urine Urobilinogen Normal (Normal); Urine WBC <5 /HPF (<5); Urine Yeast (Budding) Trace /HPF (None Seen); Urine pH 5.5 (5.0-7.0)
[2023-11-09 14:52] LABS: Absolute Basophils 0.1 K/uL (0-0.5); Absolute Eosinophils 0.2 K/uL (0-0.5); Absolute Lymphocytes (CBC) 2.5 K/uL (0.7-4.9); Absolute Monocytes 0.7 K/uL (0.1-1.3); Basophils % 0.7 % (0-1.3); Eosinophils % 1.3 % (0-4.4); Hematocrit 36.5 % (36.0-45.0); Hemoglobin 11.5 g/dL (12.0-15.0); Lymphocytes % 22.2 % (15.3-44.8); MCH 23.8 pg (27.0-35.0); MCHC 31.5 g/dL (32.0-36.0); MCV 75.7 fL (80-100); MPV 8.5 fL (7.6-11.3); Monocytes % 5.8 % (3.3-12.3); Platelets 347 thou/uL (152-406); RBC Red Blood Cell Count 4.82 M/uL (3.86-4.86); Red Cell Distribution Width 17.1 % (12.1-15.2)
[2023-11-09 15:07] LABS: Albumin 3.5 g/dL (3.4-5.0); Albumin/Globulin Ratio 0.8 (1.1-1.8); Anion Gap 9.1 mEq/L (5.0-15.0); Bilirubin Total 0.4 mg/dL (0.2-1.0); Globulin 4.4 g/dL (2.3-3.5); Potassium 3.1 mEq/L (3.5-5.1); Protein, Total 7.9 g/dL (6.4-8.2)
--- NOTE | 2023-11-09 15:08 | RAD REPORT ---
EXAM DESCRIPTION: CT - Stone Protocol - 11/09/2023 2:23 pm CLINICAL HISTORY: Abdominal pain. Left flank pain COMPARISON: None. TECHNIQUE: Computed axial tomography of the abdomen pelvis was obtained without oral or IV contrast. Lack of IV and oral contrast limits evaluation of solid organs, appendix, bowel, and vessels. [place] reformatted images were obtained and reviewed. All CT scans are performed using dose optimization technique as appropriate and may include automated exposure control or mA/KV adjustment according to patient size. FINDINGS: A renal calculus is not seen. An ureteral calculus is not noted. A bladder calculus is not present. No hydronephrosis The liver, spleen, pancreas and adrenals appear grossly normal There is no evidence of diverticulitis. The appendix appears normal Small umbilical hernia contains fat. Small to moderate ventral hernia containing fat is present a few centimeters superiorly. Cholecystectomy No adnexal mass IMPRESSION: Negative for a genitourinary calculus
--- NOTE | 2023-11-09 15:51 | EDPHYS ---
Physician Documentation [facility] Name: Gifty Singletary Age: 48 yrs Sex: Female : 1975 Arrival Date: 11/09/2023 Time: 13:33 Bed 11 Private MD: ED Physician Keegan Aguiar HPI: 11/08 14:00 This 48 yrs old Female presents to ER via Ambulatory with complaints of Low cp Back Pain. 14:00 The patient presents with pain that is acute, with no known mechanism of injury. cp 14:00 The symptoms are located in the left low back. The pain radiates to the left flank and cp left groin. 14:00 The problem was sustained from unknown cause. Onset: The symptoms/episode cp began/occurred 4 day(s) ago. Associated signs and symptoms: Pertinent negatives: chest pain, constipation, fever, hematuria, incontinence, numbness, urinary retention, vomiting, weakness, diarrhea. Severity of symptoms: in the emergency department the symptoms are unchanged, despite home interventions. 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 - Infectious Disease History:: Denies. - Social history:: Smoking status: Patient denies any tobacco usage or history of. ROS: 14:05 Constitutional: Negative for body aches, chills, fever, poor PO intake, cp 14:05 Eyes: Negative for injury, pain, redness, and discharge, cp 14:05 ENT: Negative for drainage from ear(s), ear pain, sore throat, difficulty swallowing, difficulty handling secretions, 14:05 Cardiovascular: Negative for chest pain, palpitations, 14:05 Respiratory: Negative for cough, shortness of breath, wheezing, 14:05 Abdomen/GI: Positive for abdominal pain, of the left flank and left groin, Negative for vomiting, diarrhea, constipation, 14:05 Back: Positive for pain at rest, pain with movement, of the left low back, Negative for injury or acute deformity, decreased range of motion, 14:05 : Negative for urinary symptoms, hematuria, vaginal bleeding, vaginal discharge, 14:05 Neuro: Negative for altered mental status, headache, weakness, 14:05 All other systems are negative, Exam: 14:10 Constitutional: The patient appears in no acute distress, alert, awake, non-toxic, well cp developed, well nourished, uncomfortable, 14:10 Head/Face: Normocephalic, atraumatic. cp 14:10 Eyes: Periorbital structures: appear normal, Conjunctiva: normal, no exudate, no injection, Sclera: no appreciated abnormality, Lids and lashes: appear normal, bilaterally, 14:10 ENT: External ear(s): are unremarkable, Nose: is normal, Mouth: Lips: moist, Oral mucosa: pink and intact, moist, Posterior pharynx: is normal, airway is patent, no erythema, no exudate, 14:10 Neck: ROM/movement: is normal, is supple, without pain, no range of motions limitations, 14:10 Chest/axilla: Inspection: normal, 14:10 Cardiovascular: Rate: normal, Rhythm: regular, Edema: is not appreciated, JVD: is not appreciated, 14:10 Respiratory: the patient does not display signs of respiratory distress, Respirations: normal, no use of accessory muscles, no retractions, labored breathing, is not present, Breath sounds: are clear throughout, no decreased breath sounds, no stridor, no wheezing, 14:10 Abdomen/GI: Inspection: abdomen appears normal, Bowel sounds: active, all quadrants, Palpation: soft, in all quadrants, mild abdominal tenderness, in the posterior aspect of left lateral abdomen, anterior aspect of left lateral abdomen and left lower quadrant, rebound tenderness, is not appreciated, involuntary guarding, is not appreciated, 14:10 Back: pain, that is moderate, of the left low back, ROM is normal, vertebral tenderness, is not appreciated, muscle spasm, is not present, 14:10 Neuro: Motor: moves all fours, strength is normal, Sensation: is normal, Gait: is steady, Vital Signs: 13:47 BP 153 / 93; Pulse 92; Resp 16; Temp 98; Pulse Ox 99% ; bp 14:40 BP 123 / 67; Pulse 72; Resp 16; Pulse Ox 100% ; Pain 0/10; cm10 16:05 BP 126 / 69; Pulse 73; Resp 18; Pulse Ox 98% on R/A; cm10 14:40 Pain Scale: Adult cm10 MDM: 13:50 Patient medically screened. 14:00 Differential diagnosis: strain, sciatica, Herniated disc UTI, kidney stone. 15:50 Data reviewed: vital signs, nurses notes, lab test result(s), radiologic studies, CT cp scan. 15:50 I considered the following discharge prescriptions or medication management in the emergency department Medications were administered in the Emergency Department. See MAR. Counseling: I had a detailed discussion with the patient and/or guardian regarding the historical points, exam findings, and any diagnostic results supporting the discharge/admit diagnosis, lab results, radiology results, the need for outpatient follow up, a family practitioner, to return to the emergency department if symptoms worsen or persist or if there are any questions or concerns that arise at home. Response to treatment: the patient's symptoms have markedly improved after treatment, and as a result, I will discharge patient. 11/08 13:55 Order name: CBC with Diff; Complete Time: 15:13 11/08 15:14 Interpretation: Normal except: WBC 11.40; HGB 11.5; MCV 75.7; MCH 23.8; MCHC 31.5; RDW cp 17.1. 11/08 13:55 Order name: CMP; Complete Time: 15:13 11/08 15:14 Interpretation: Normal except: K 3.1; CL 109; GFR 85; AST 11; GLOB 4.4; A/G 0.8. 11/08 13:55 Order name: Lipase; Complete Time: 15:13 11/08 15:14 Interpretation: Reviewed. 11/08 13:55 Order name: Urinalysis w/ reflexes; Complete Time: 14:49 11/08 14:50 Interpretation: Normal except: [facility] Turbid; UKET 2+; UPROT TRACE; URBC 5-10; BYST Trace. 11/08 13:55 Order name: CT Stone Protocol; Complete Time: 15:13 11/08 13:55 Order name: IV Saline Lock; Complete Time: 14:16 11/08 13:55 Order name: Labs collected and sent; Complete Time: 14:16 11/08 14:30 Order name: Labs - recollect needed: recollect green and lavender top; Complete Time: bd 14:39 Administered Medications: 14:16 Drug: TORadol - Ketorolac IVP 15 mg IVP once Route: IVP; Site: right forearm; cm10 14:45 Follow up: Response: No adverse reaction; Marked relief of symptoms; Pain is decreased cm10 14:16 Drug: Ondansetron IVP 4 mg IVP once; over 2 minutes Route: IVP; Site: right forearm; cm10 14:45 Follow up: Response: No adverse reaction cm10 Disposition Summary: 11/09/23 15:51 Discharge Ordered Notes: Location: Home cp Problem: new cp Symptoms: have improved cp Condition: Stable cp Diagnosis - Low back pain cp Followup: cp - With: Private Physician - When: 2 - 3 days - Reason: Recheck today's complaints Discharge Instructions: - Discharge Summary Sheet cp - Acute Back Pain, Adult cp - Heat Therapy cp - Back Exercises cp Forms: - Medication Reconciliation Form cp - Antibiotic Education cp - Prescription Opioid Use cp - Patient Portal Instructions cp - Leadership Thank You Letter cp - Work release form cm10 Prescriptions: - Cyclobenzaprine 10 mg Oral Tablet - take 1 tablet ORAL route every 8 hours As needed; 30 tablet; Refills: 0, cp Product Selection Permitted - Diclofenac Sodium 75 mg Oral Tablet Sustained Release - take 1 tablet ORAL route 2 times per day; 30 tablet; Refills: 0, Product cp Selection Permitted Signatures: Dispatcher [employer] Natty Palacios Corey, PA PA cp Peltier, Brian, RN RN bp Martinez, Clarissa, RN RN cm10
--- NOTE | 2023-11-09 15:51 | ER ---
Nurse's Notes [facility] Name: Gifty Singletary Age: 48 yrs Sex: Female : 1975 Arrival Date: 11/09/2023 Time: 13:33 Bed 11 Private MD: Diagnosis: Low back pain Presentation: 11/08 13:47 Chief complaint: Patient states: LEFT FLANK PAIN TO LEFT GROIN x4 DAYS. Coronavirus bp screen: At this time, the client does not indicate any symptoms associated with coronavirus-19. Ebola Screen: No symptoms or risks identified at this time. Initial Sepsis Screen: Does the patient meet any 2 criteria? No. Patient's initial sepsis screen is negative. Does the patient have a suspected source of infection? No. Patient's initial sepsis screen is negative. Risk Assessment: Do you want to hurt yourself or someone else? Patient reports no desire to harm self or others. Onset of symptoms is unknown. 13:47 Method Of Arrival: Ambulatory bp 13:47 Acuity: ODILIA 3 bp Triage Assessment: 13:49 General: Appears uncomfortable, Behavior is cooperative, appropriate for age, anxious. bp Pain: Complains of pain in left flank. 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 - Infectious Disease History:: Denies. - Social history:: Smoking status: Patient denies any tobacco usage or history of. Screenin:18 [facility] ED Fall Risk Assessment (Adult) History of falling in the last 3 months, cm10 including since admission No falls in past 3 months (0 pts) Confusion or Disorientation No (0 pts) Intoxicated or Sedated No (0 pts) Impaired Gait No (0 pts) Mobility Assist Device Used No (0 pt) Altered Elimination No (0 pt) Score/Fall Risk Level 0 - 2 = Low Risk Oriented to surroundings, Maintained a safe environment, Hourly rounding (assess needs \T\ fall precautionary measures) done. Abuse screen: Denies threats or abuse. Denies injuries from another. Nutritional screening: No deficits noted. Tuberculosis screening: No symptoms or risk factors identified. Assessment: 14:17 General: Appears in no apparent distress. uncomfortable, Behavior is calm, cooperative. cm10 Pain: Complains of pain in left flank Pain radiates to left lower quadrant Pain began 4 days ago. Neuro: No deficits noted. Level of Consciousness is awake, alert, obeys commands, Oriented to person, place, time, situation, Appropriate for age. Respiratory: No deficits noted. Airway is patent Respiratory effort is even, unlabored, Respiratory pattern is regular, symmetrical. GI: No deficits noted. No signs and/or symptoms were reported involving the gastrointestinal system. : Reports pain in left flank(s). Derm: No deficits noted. Skin is intact, Skin is pink, warm \T\ dry. Musculoskeletal: Range of motion: intact in all extremities. 14:40 Reassessment: Patient appears in no apparent distress at this time. Patient and/or cm10 family updated on plan of care and expected duration. Pain level reassessed. Patient is alert, oriented x 3, equal unlabored respirations, skin warm/dry/pink. Patient denies pain at this time. Patient states feeling better. Patient states symptoms have improved. Vital Signs: 13:47 BP 153 / 93; Pulse 92; Resp 16; Temp 98; Pulse Ox 99% ; bp 14:40 BP 123 / 67; Pulse 72; Resp 16; Pulse Ox 100% ; Pain 0/10; cm10 16:05 BP 126 / 69; Pulse 73; Resp 18; Pulse Ox 98% on R/A; cm10 14:40 Pain Scale: Adult cm10 ED Course: 13:35 Patient arrived in ED. rg4 13:36 Vineet Núñez PA is PHCP. cp 13:36 Keegan Aguiar MD is Attending Physician. cp 13:48 Triage completed. bp 13:48 Arm band placed on. bp 14:01 Yanet Perez, SHAHID is Primary Nurse. cm10 14:16 CBC with Diff Sent. cm10 14:16 CMP Sent. cm10 14:16 Lipase Sent. cm10 14:16 Urinalysis w/ reflexes Sent. cm10 14:17 Initial lab(s) drawn, by nc, sent to lab. Urine collected: clean catch specimen. cm10 Inserted saline lock: 20 gauge in right forearm, using aseptic technique. Blood collected. 14:[address] via wheelchair. cm10 14:18 Patient has correct armband on for positive identification. Bed in low position. Call cm10 light in reach. Side rails up X2. Pulse ox on. NIBP on. Door closed. 14:23 CT Stone Protocol In Process Unspecified. EDMS 14:26 Patient moved back from CT. cm10 14:39 Lab(s) recollected, by me, sent to lab. cm10 16:06 Provided Education on: Follow-up instructions. cm10 16:06 No provider procedures requiring assistance completed. IV discontinued, intact, cm10 bleeding controlled, No redness/swelling at site. Pressure dressing applied. Administered Medications: 14:16 Drug: TORadol - Ketorolac IVP 15 mg IVP once Route: IVP; Site: right forearm; cm10 14:45 Follow up: Response: No adverse reaction; Marked relief of symptoms; Pain is decreased cm10 14:16 Drug: Ondansetron IVP 4 mg IVP once; over 2 minutes Route: IVP; Site: right forearm; cm10 14:45 Follow up: Response: No adverse reaction cm10 Medication: 16:06 VIS not applicable for this client. cm10 Outcome: 15:51 Discharge ordered by MD. cp 16:06 Discharged to home ambulatory, cm10 16:06 Condition: good 16:06 Discharge instructions given to patient, Instructed on discharge instructions, follow up and referral plans. medication usage, Demonstrated understanding of instructions, follow-up care, medications, Prescriptions given X 2, 16:06 Patient left the ED. cm10 Signatures: Dispatcher [employer] EDWA Vineet Núñez PA PA cp Garcia, Rubi rg4 Cooper Ewing, RN RN Yanet Donis, RN RN cm10
[2023-11-09 16:30] VITALS: BP 126/69; TEMP 98; O2SAT 98
== END 2023-11-09 16:06 | disposition home or self-care (01) ==
LOC: ER 13:33
DX: M54.50 Low back pain, unspecified (principal)
CPT/HCPCS: 85025; 81001; 36415; 83690; 80053; 76377; 74176; 96375; 96374; 99285; J2405

== ENCOUNTER 2024-02-24 20:58 | Emergency (ER) | payer OTHER ==
--- OUTSIDE RECORDS SUMMARY | 2024-02-24 21:02 | XMS REPORT | Continuity of Care Document ---
Author Name Unknown Address [address] [facility] [place] [address] [facility] thconnect Address [address] [facility] [address] [place] [address] Care Team Providers Care Sports Equipment Racker Name Role Phone BANDA, JUSTICE Rosas Primary Care Physician LIANNE Gutierrez Attending Clinician Unavailable RUTH DUARTE Attending Clinician Unava JUAN CARLOS Akers Attending Clinician Unavailab MAIDA Romero Attending Clinician Unavailab MAIDA Romero Attending Clinician Unavailab Maida Romero DO Attending Clinician JACINTO BRAN Attending Clinician Unavailable RYAN SAAVEDRA Attending Clinician Unavailable RAYO SEARS Attending Clinician Unavailable LAB90 Attending Clinician Unavailable JESSIKA SAHU Attending Clinician Unavailable CHUNG YOUNG Attending Clinician UnaMARY Macias Attending Clinician Unavailable ENE HUNG Attending Clinician UnavailEne Trimble CNM Attending Clinician Doctor Unassigned, [place] Attending Clinician U CHANA Barkley Attending Clinician Unavail able ESDRAS HERR Attending Clinician Unavailable ESDRAS HERR Attending Clinician Unavailable Only, [facility] U[facility] Test Attending Clinician Unavailabl e Unknown, Attending Attending Clinician Unavailab rIis Jane Attending Clinicia n IRIS DAY Attending Clinician Un available Linda Alfaro RN Attending Clinician Unavailable Caleb GARCIA, Fauzia Attending Clinician [phone] FAUZIA MERCADO Attending Clinician UnavailDEVONTE Langford Attending Clinician Unavail able Devonte Michael MD Attending Clinician [phone] GIOVANNI RAMIREZ Attending Clinician Unavailable ALBERTO GARCIA Attending Clinician Unavailable Alberto Garcia MD Attending Clinician [phone] GIOVANNI RAMIREZ Admitting Clinician Unavailable ALBERTO GARCIA Admitting Clinician Unavailable Payers Payer Name Policy Type Policy Number Effective Date Expirati on Date Source [facility]ETJAIM[facility] EMERALD [employer] 94 ON 9 [id number] 2023 00:00:00 [facility] Allison/ SUSAN HOBBS [id number] 2023 00:00:00 [facility] [id number] 2021 00:00:00 Problems Condition Name Condition Details [...] adult Disease Active 08-06 00:00: 00 Susan Quiñonez - Externa hiram Encounter for screening for diabetes mellitus Encounter for screening for diabetes mellitus Disease Active 08-06 00:00: 00 Susan Quiñonez - Externa hiram Unable to lose weight Unable to lose weight Disease Active 08-06 00:00: 00 Susan Amayaa hiram Mild intermitte nt asthma without complicati on (HHS-HCC) Mild intermitte nt asthma without complicati on (HHS-HCC) Disease Active 08-06 00:00: 00 Susan gandhi Family history of hypertensi on Family history of hypertensi on Disease Active 08-06 00:00: 00 Susan gandhi Morbid obesity Morbid obesity Disease Active 2016-06 00:00: 00 [facility] History of tubal ligation History of tubal ligation Disease Active 01-12 00:00: 00 [facility] History of hypertensi on History of hypertensi on Disease Active 01-12 00:00: 00 [facility] Asthma Asthma Disease Active 01-11 00:00: 00 Overview: Formattin g of this note might be different from the original. ICD10 Diagnosis Term Weight Caller Utility [facility] Screening for STDs (sexually transmitte d diseases) Screening for STDs (sexually transmitte d diseases) Disease Resolve d 01-11 00:00: 00 2023-05-07 00:00:00 2023-05-07 09:16:57 Overview: Formattin g of this note might be different from the original. ICD10 Diagnosis Term Weight Caller Utility [facility] Atypical chest pain Atypical chest pain Disease Resolve d 7-04 00:00: 00 2023-05-05 00:00:00 2023-05-05 13:29:14 [facility] of family member of family member Disease Resolve d 1-04 00:00: 00 2023-05-05 00:00:00 2023-05-05 13:29:16 [facility] Feeling of sadness Feeling of sadness Disease Resolve d 1-04 00:00: 00 2023-05-05 00:00:00 2023-05-05 13:29:18 [facility] Menorrhagi a with regular cycle Menorrhagi a with regular cycle Disease Resolve d 2016-06 00:00: 00 2023-05-05 00:00:00 2023-05-05 13:29:11 [facility] BMI 40.0-44.9, adult BMI 40.0-44.9, adult Disease Resolve d 2017 0-23 00:00: 00 2018-06-04 00:00:00 2018-06-04 09:06:44 [facility] Excessive or frequent menstruati on Excessive or frequent menstruati on Disease Resolve d 01-11 00:00: 00 2015-01-12 00:00:00 2015-01-12 17:39:22 [facility] Allergies, Adverse Reactions, Alerts Allergy Name Allergy Type Status Severity Reaction(s) Onset Date Inactive Date Treating Clinician Comments Source NO KNOWN ALLERGIE S Drug Class Active [facility] Social History Social Habit Start Date Stop Date Quantity Comments Source Sexual orientation Dana Quiñonez - External History of tobacco use Cigarette Smoker [facility] History SDOH Alcohol Frequency [facility] History SDOH Alcohol Std Drinks [facility] History SDOH Alcohol Binge [facility] Alcoholic beverage intake 2024-02-21 00:00:00 2024-02-21 00:00:00 Ex-drinker (finding) [facility] History of Social function 2023-11-05 00:00:00 2023-11-05 00:00:00 Susan Quiñonez - External Tobacco use and exposure 2023-05-05 00:00:00 2023-05-05 00:00:00 Smokeless tobacco non-user [facility] Alcohol intake 2023-05-05 00:00:00 2023-05-05 00:00:00 Ex-drinker (finding) [facility] Exposure to SARS-CoV-2 (event) 2022-03-03 00:00:00 2022-03-13 11:16:00 Not sure [facility] Alcohol Comment 2015-01-11 00:00:00 2015-01-11 00:00:00 Occasionally [facility] Sex assigned at 1975 00:00:00 1975 00:00:00 Susan Quiñonez - External Smoking Status Start Date Stop Date Source Never smoked tobacco Susan Quiñonez - External Ex-smoker 2023-05-05 00:00:00 2023-05-05 00:00:00 [facility] Occasional tobacco smoker 2015-01-11 00:00:00 [facility] Medications Ordered Medication Name Filled Medication Name Start Date Stop Date Current Medication? Ordering Clinician Indication Dosage Frequency Signature (SIG) Comments Components Source ibuprofen (IBU) tablet 600 mg 02-20 21:30: 00 02-20 21:29 :00 No 600mg 600 mg, Oral, ONCE, 1 dose, On 02/21/24 at 1630, [facility] Oxybutynin Chloride 10 MG oral TABLET SR 24 HR 12-30 00:00: 00 Yes [id number] 10mg QD Take 1 tablet (10 mg total) by mouth daily. Susan gandhi Cetirizine HCl 10 MG oral Capsule 12-30 00:00: 00 Yes [id number] 10mg QD Take 1 capsule (10 mg total) by mouth daily. Susan gandhi Benzonatate (Tessalon Perles) 100 MG oral Capsule 12-30 00:00: 00 Yes [id number] 100mg Q.[id number] 3D Take 1 capsule (100 mg total) by mouth 3 times daily as needed for cough. Susan gandhi Topiramate 25 MG oral Tablet 12-26 00:00: 00 Yes [id number] 104 25mg Q.5D TAKE 1 TABLET (25 MG TOTAL) BY MOUTH 2 TIMES DAILY. Susan gandhi Ferrous Sulfate 325 (65 Fe) MG oral Tablet 11-16 00:00: 00 Yes [id number] 325mg QD Take 1 tablet (325 mg total) by mouth daily (with breakfast) . Susan gandhi Cyclobenzap rine HCl 10 MG oral Tablet 11-08 00:00: 00 Yes 10mg Q.[id number] 3D Take 1 tablet (10 mg total) by mouth every 8 hours as needed for muscle spasms. Susan gandhi Diclofenac Sodium 75 MG oral Tablet Delayed Response 11-08 00:00: 00 12-30 00:00 :00 No 75mg Q.5D Take 1 tablet (75 mg total) by mouth 2 times daily. Susan gandhi Topiramate 25 MG oral Tablet 6-03 00:00: 00 Yes [id number] 104 25mg Take 1 tablet (25 mg total) by mouth 2 times daily. Susan gandhi Oxybutynin Chloride 10 MG oral TABLET SR 24 HR 5-19 00:00: 00 12-30 00:00 :00 No [id number] 10mg QD Take 1 tablet (10 mg total) by mouth daily. Susan gandhi Albuterol HFA 108 (90 Base) MCG/ACT IN AERS - 00:00: 00 Yes [id number] 2{puff} Q.25D Inhale 2 puffs into the lungs every 6 hours as needed for wheezing. Susan gandhi Benzonatate (Tessalon Perles) 100 MG oral Capsule 08-31 00:00: 00 12-30 00:00 :00 No [id number] 100mg Q.[id number] 3D Take 1 capsule (100 mg total) by mouth 3 times daily as needed for cough. Susan gandhi Semaglutide -CARLOSGOADINA-Anjel ght Management 0.25 MG/0.5ML Subcutaneou s Solution Auto-inject or 08-31 00:00: 00 12-30 00:00 :00 No [id number] .25mg Q1W Inject 0.25 mg into the skin once a week. Susan gandhi Cefdinir 300 MG oral Capsule 3-20 00:00: 00 08-31 00:00 :00 No [id number] 300mg Take 1 capsule (300 mg total) by mouth 2 times daily Please take with food. Susan gandhi Albuterol HFA 108 (90 Base) MCG/ACT IN AERS -08 00:00: 00 Yes [id number] 2{puff} Q.25D Inhale 2 puffs into the lungs every 6 hours as needed for wheezing. Susan gandhi cephALEXin (KEFLEX) capsule 500 mg 2021-06 17:30: 00 03-13 17:54 :00 No 500mg 500 mg, Oral, ONCE, 1 dose, On Laura 03/13/22 at 1230, [facility]NEY
Re ason for Anti-Infec tive: Documented Infection< br>Documen bethel Infection Site: Skin / Soft Tissue
Duration of Therapy: 10 days [facility] ibuprofen 600 mg tablet 2021-06 00:00: 00 05-05 00:00 :00 No [id number] 600mg Take 1 tablet by mouth every 6 (six) hours as needed for Pain (scale 4-6) for up to 30 doses. [facility] cephALEXin 500 mg capsule 2021-06 00:00: 00 03-24 04:59 :00 No [id number] 1000mg Take 2 capsules by mouth in the morning and 2 capsules in the evening. Do all this for 10 days. [facility] azithromyci n 250 mg tablet 12-03 00:00: 00 05-05 00:00 :00 No [id number] 250mg Take 1 tablet by mouth SEE-INSTRU CTIONS. Take 500 mg day 1, then 250 mg days 2 to 5. [facility] benzonatate 100 mg capsule 12-03 00:00: 00 05-05 00:00 :00 No [id number] 100mg Take 1 capsule by mouth every 8 (eight) hours as needed for Cough. [facility] terconazole 0.8 % vaginal cream 06-04 00:00: 00 05-05 00:00 :00 No [id number] 1{appli cator} Insert 1 Applicator into vagina at bedtime. [facility] Immunizations Ordered Immunization Name Filled Immunization Name Date Status Comments Source Influenza Virus Vaccine Quad .5 mL IM 6+ MO 2018-06-04 00:00:00 Completed [facility] Influenza Virus Vaccine Quad .5 mL IM 6+ MO 2018-06-04 00:00:00 Completed [facility] TDAP 2015-01-11 00:00:00 Completed [facility] TDAP 2015-01-11 00:00:00 Completed [facility] Influenza Virus Vaccine, No Preserv, age 5 [...] Susan Seybold - External TDAP Unknown Completed [facility] Influenza Virus Vaccine Quad .5 mL IM 6+ MO (FLUZONE/FLULAVAL/F LUARIX) Unknown Completed [facility] TDAP Unknown Completed [facility] Influenza Virus Vaccine Quad .5 mL IM 6+ MO (FLUZONE/FLULAVAL/F LUARIX) Unknown Completed [facility] TDAP Unknown Completed [facility] Influenza Virus Vaccine Quad .5 mL IM 6+ MO (FLUZONE/FLULAVAL/F LUARIX) Unknown Completed [facility] Influenza Virus Vaccine Quad .5 mL IM 6+ MO (FLUZONE/FLULAVAL/F LUARIX) Unknown Completed [facility] TDAP Unknown Completed [facility] Influenza Virus Vaccine Quad .5 mL IM 6+ MO (FLUZONE/FLULAVAL/F LUARIX) Unknown Completed [facility] Influenza Virus Vaccine Quad .5 mL IM 6+ MO (FLUZONE/FLULAVAL/F LUARIX) Unknown Completed [facility] TDAP Unknown Completed [facility] Influenza Virus Vaccine Quad .5 mL IM 6+ MO (FLUZONE/FLULAVAL/F LUARIX) Unknown Completed [facility] Influenza Virus Vaccine Quad .5 mL IM 6+ MO (FLUZONE/FLULAVAL/F LUARIX) Unknown Completed [facility] TDAP Unknown Completed [facility] Influenza Virus Vaccine Quad .5 mL IM 6+ MO (FLUZONE/FLULAVAL/F LUARIX) Unknown Completed [facility] Influenza Virus Vaccine Quad .5 mL IM 6+ MO (FLUZONE/FLULAVAL/F LUARIX) Unknown Completed [facility] TDAP Unknown Completed [facility] Influenza Virus Vaccine Quad .5 mL IM 6+ MO (FLUZONE/FLULAVAL/F LUARIX) Unknown Completed [facility] Influenza Virus Vaccine Quad .5 mL IM 6+ MO (FLUZONE/FLULAVAL/F LUARIX) Unknown Completed [facility] TDAP Unknown Completed [facility] Influenza Virus Vaccine Quad .5 mL IM 6+ MO (FLUZONE/FLULAVAL/F LUARIX) Unknown Completed [facility] Influenza Virus Vaccine Quad .5 mL IM 6+ MO (FLUZONE/FLULAVAL/F LUARIX) Unknown Completed [facility] TDAP Unknown Completed [facility] Influenza Virus Vaccine Quad .5 mL IM 6+ MO (FLUZONE/FLULAVAL/F LUARIX) Unknown Completed [facility] Influenza Virus Vaccine Quad .5 mL IM 6+ MO (FLUZONE/FLULAVAL/F LUARIX) Unknown Completed [facility] TDAP Unknown Completed [facility] Influenza Virus Vaccine Quad .5 mL IM 6+ MO (FLUZONE/FLULAVAL/F LUARIX) Unknown Completed [facility] Vital Signs Vital Name Observation Time Observation Value Comments S ource Systolic blood pressure 2024-02-21 21:22:00 135 mm[Hg] [facility] Diastolic blood pressure 2024-02-21 21:22:00 101 mm[Hg] [facility] Heart rate 2024-02-21 21:22:00 98 [facility] 2024-02-21 21:22:00 38.39 Diana [facility] Respiratory rate 2024-02-21 21:22:00 20 /min [facility] Oxygen saturation in Arterial blood by Pulse oximetry 2024-02-21 21:22:00 96 /min [facility] Body height 2024-02-21 21:20:00 160 cm [facility] Body weight 2024-02-21 21:20:00 106.142 kg [facility] BMI 2024-02-21 21:20:00 41.45 kg/m2 [facility] Systolic blood pressure 2023-12-31 19:56:00 124 mm[Hg] Susan Seybo ld - External Diastolic blood pressure 2023-12-31 19:56:00 76 mm[Hg] Susan Seybo ld - External Heart rate 2023-12-31 19:56:00 68 /min Kelse y Seybold - External Body temperature 2023-12-31 19:56:00 36.61 Diana Susan Seybold - External Respiratory rate 2023-12-31 19:56:00 20 /min Susan Seybold - External Body height 2023-12-31 19:56:00 160 cm Olamide ey Seybold - External Body weight 2023-12-31 19:56:00 106.142 kg Olamide ey Seybold - External BMI 2023-12-31 19:56:00 41.45 kg/m2 Olamide ey Seybold - External Oxygen saturation in Arterial blood by Pulse oximetry 2023-12-31 19:56:00 99 /min Susan Seybo ld - External Systolic blood pressure 2023-11-12 19:09:00 126 mm[Hg] Susan Seybo ld - External Diastolic blood pressure 2023-11-12 19:09:00 78 mm[Hg] Susan Seybo ld - External Heart rate 2023-11-12 19:09:00 76 /min Kelse y Seybold - External Body temperature 2023-11-12 19:09:00 36.78 Diana Susan Seybold - External Respiratory rate 2023-11-12 19:09:00 16 /min Susan Seybold - External Body height 2023-11-12 19:09:00 160 cm Olamide ey Seybold - External Body weight 2023-11-12 19:09:00 107.502 kg Olamide ey Seybold - External BMI 2023-11-12 19:09:00 41.98 kg/m2 Olamide ey Seybold - External Oxygen saturation in Arterial blood by Pulse oximetry 2023-11-12 19:09:00 98 /min Susan Seybo ld - External Systolic blood pressure 2023-11-05 14:23:00 124 mm[Hg] [...] External Heart rate 2023-09-01 18:26:00 88 /min Kelse y Seybold - External Body temperature 2023-09-01 [...] Pulse oximetry 2023-09-01 18:26:00 97 /min Susan Streetybo ld - External Systolic blood pressure 2023-08-07 20:04:00 118 mm[Hg] Susan Seybo ld - External Diastolic blood pressure 2023-08-07 20:04:00 80 mm[Hg] Susan Seybo ld - External Heart rate 2023-08-07 20:04:00 76 /min Travis vicente Seybold - External Body temperature 2023-08-07 20:04:00 36.33 Diana Susan Seybold - External Respiratory rate 2023-08-07 20:04:00 16 /min Susan Seybold - External Body height 2023-08-07 20:04:00 160 cm Olamide ey Seybold - External Body weight 2023-08-07 20:04:00 106.765 kg Olamide ey Seybold - External BMI 2023-08-07 20:04:00 41.69 kg/m2 Olamide ey Seybold - External Oxygen saturation in Arterial blood by Pulse oximetry 2023-08-07 20:04:00 98 /min Susan Streetybo ld - External Systolic blood pressure 2023-05-05 19:14:00 143 mm[Hg] [facility] Diastolic blood pressure 2023-05-05 19:14:00 84 mm[Hg] [facility] Heart rate 2023-05-05 19:14:00 80 /min [facility] Body temperature 2023-05-05 19:10:00 36.17 Diana [facility] Respiratory rate 2023-05-05 19:10:00 20 /min [facility] Body height 2023-05-05 19:10:00 154.9 cm [facility] Body weight 2023-05-05 19:10:00 105.461 kg [facility] BMI 2023-05-05 19:10:00 43.93 kg/m2 [facility] Systolic blood pressure 2022-03-13 17:57:00 136 mm[Hg] [facility] Diastolic blood pressure 2022-03-13 17:57:00 86 mm[Hg] [facility] Heart rate 2022-03-13 17:57:00 81 /min [facility] Respiratory rate 2022-03-13 17:57:00 16 /min [facility] Oxygen saturation in Arterial blood by Pulse oximetry 2022-03-13 17:57:00 100 /min [facility] Body temperature 2022-03-13 16:17:00 36.5 Diana [facility] Body height 2022-03-13 16:14:00 154.9 cm [facility] Body weight 2022-03-13 16:14:00 104.327 kg [facility] BMI 2022-03-13 16:14:00 43.46 kg/m2 [facility] Procedures Procedure Date / Time Performed Performing Clinician Source HIGH RISK HPV-THIN PREP 2023-05-05 20:24:00 Ene Hung [facility] PAP SMEAR-LIQUID BASED-CP 2023-05-05 20:24:00 Ene Hung [facility] THYROID STIMULATING HORMONE 2023-05-05 20:07:00 Ene Hung [facility] LIPID PANEL (39954)(TOTAL CHOLESTEROL, TRIGLYCERIDES, HDL) 2023-05-05 20:07:00 Ene Hung [facility] CBC WITH DIFF 2023-05-05 20:07:00 Ene Hung [facility] GLYCOSYLATED HEMOGLOBIN (A1C) 2023-05-05 20:07:00 Ene Hung [facility] "RWSP DAMIAN ONLY" FLU VACC(), 6+ MONTHS, IM, QUAD (FLUZONE/FLULAVAL/FLUAR IX) 2023-05-05 19:28:08 Ene Hung [facility] CONSENT/REFUSAL FOR DIAGNOSIS AND TREATMENT 2023-05-05 18:45:25 Doctor Unassigned, [place] [facility] Encounters Start Date/Time End Date/Time Encounter Type Admission Type Attending [facility] Care Department Encounter ID Source 2024-04-15 13:30:00 2024-04-15 13:30:00 Outpatient LIANNE AYALA SUSAN JORDAN [id number] [facility] 2024-03-09 10:00:00 2024-03-09 10:00:00 Outpatient RUTH RODRIGUEZ SUSAN JORDAN [id number] [facility] 2024-02-24 16:00:00 2024-02-24 16:00:00 Outpatient JUAN CARLOS TORRES [id number] [facility] 2024-02-21 16:24:00 2024-02-21 16:32:00 Emergency X MAIDA LAY SANDRA [facility] ERT [id number] [facility] 2024-02-21 16:24:00 2024-02-21 16:32:00 Emergency Maida Lay [facility] [id number] [facility] 2024-02-05 11:00:00 2024-02-05 11:00:00 Outpatient JUAN CARLOS TORRES [id number] [facility] 2024-01-29 00:00:00 2024-01-29 00:00:00 Outpatient JUAN CARLOS TORRES [id number] [facility] 2024-01-22 00:00:00 2024-01-22 00:00:00 Outpatient JUAN CARLOS TORRES [id number] [facility] 2024-01-05 00:00:00 2024-01-05 00:00:00 Outpatient JACINTO BRAN [id number] [facility] 2023-12-31 15:00:2023-12-31 15:00:00 Outpatient JUAN CARLOS TORRESSARTHAK JORDAN [id number] [facility] 2023-12-26 00:00:00 2023-12-26 00:00:00 Outpatient RYAN SAAVEDRA SUSAN JORDAN [id number] [facility] 2023-12-18 00:00:00 2023-12-18 00:00:00 Outpatient JUAN CARLOS TORRES SUSAN JORDAN [id number] [facility] 2023-12-18 00:00:00 2023-12-18 00:00:00 Outpatient JUAN CARLOS TORRES SUSAN JORDAN [id number] [facility] 2023-12-02 00:00:00 2023-12-02 00:00:00 Outpatient RYAN SAAVEDRA [facility] [id number] [facility]23-[facility]-18 14:00:00 2023-11-18 14:00:00 Outpatient RENU RAYO JORDAN [id number] [facility] 2023-11-17 00:00:00 2023-11-17 00:00:00 Outpatient RYAN SAAVEDRA SUSAN JORDAN [id number] [facility] 2023-11-12 14:45:00 2023-11-12 14:45:00 Outpatient SHERRY SUSAN JORDAN [id number] [facility] 2023-11-12 14:00:00 2023-11-12 14:00:00 Outpatient KERI RYAN SUSAN JORDAN [id number] [facility] 2023-11-10 13:00:00 2023-11-10 13:00:00 Outpatient JESSIKA SAHU [id number] [facility] 2023-11-05 10:15:00 2023-11-05 10:15:00 Outpatient LAB90 SUSAN JORDAN [id number] [facility] 2023-11-05 09:30:00 2023-11-05 09:30:00 Outpatient JUAN CARLOS TORRES SUSAN JORDAN [id number] [facility] 2023-11-05 00:00:00 2023-11-05 00:00:00 Outpatient SUSAN JORDAN [id number] [facility] 2023-11-04 15:00:00 2023-11-04 15:00:00 [facility] [id number] [facility]23-[facility]-30 08:30:00 2023-10-30 08:30:00 Outpatient RENURAYO [facility]AN JORD[facility] [id number] [facility] 2023-10-27 11:30:00 2023-10-27 11:30:00 Outpatient JUAN CARLOS TORRES SUSAN JORDAN [id number] [facility] 2023-10-22 00:00:00 2023-10-22 00:00:00 Outpatient HANNAHCHUNG BERTRAND SUSAN JORDAN [id number] [facility] 2023-10-19 00:00:00 2023-10-19 00:00:00 Outpatient JUAN CARLOS TORRES SUSAN JORDAN [id number] [facility] 2023-10-18 00:00:00 2023-10-18 00:00:00 Outpatient JUAN CARLOS TORRES SUSAN JORDAN [id number] [facility] 2023-10-15 00:00:00 2023-10-15 00:00:00 Outpatient JUAN CARLOS TORRES [facility]USAN JORDAN [id number] [facility] 2023-10-02 14:00:00 2023-10-02 14:00:00 Outpatient RAYO SEARS [facility]ORD[facility] [id number] [facility] 2023-10-02 12:40:00 2023-10-02 12:40:00 Outpatient [facility]USAN JORDAN [id number] [facility] 2023-10-02 09:00:00 2023-10-02 09:00:00 Outpatient JUAN CARLOS TORRES SUSAN JORDAN [id number] [facility] 2023-09-28 00:00:00 2023-09-28 00:00:00 Outpatient JUAN CARLOS TORRES SUSAN JORDAN [id number] [facility] 2023-09-24 00:00:00 2023-09-24 00:00:00 Outpatient JUAN CARLOS TORRES SUSAN JORDAN [id number] [facility] 2023-09-22 00:00:00 2023-09-22 00:00:00 Outpatient JUAN CARLOS TORRES SUSAN [id number] [facility] 2023-09-22 00:00:00 2023-09-22 00:00:00 Outpatient JUAN CARLOS TORRES SUSAN [id number] [facility] 2023-09-22 00:00:00 2023-09-22 00:00:00 Outpatient MARY CARDENAS SUSAN SUSAN [id number] [facility] 2023-09-15 00:00:00 2023-09-15 00:00:00 Outpatient JUAN CARLOS TORRES SUSAN [id number] [facility] 2023-09-11 00:00:00 2023-09-11 00:00:00 Outpatient JUAN CARLOS TORRES SUSAN [id number] [facility] 2023-09-04 11:00:00 2023-09-04 11:00:00 Outpatient JUAN CARLOS TORRES SUSAN JORDAN [id number] [facility] 2023-09-01 14:15:00 2023-09-01 14:15:00 Outpatient LAB90 SUSAN JORDAN [id number] [facility] 2023-09-01 13:30:00 2023-09-01 13:30:00 Outpatient [facility]ORRES [id number] [facility]:00 2023-08-29 00:00:00 Outpatient JUAN CARLOS TORRES SUSAN JORDAN [id number] [facility] 2023-08-19 00:00:00 2023-08-19 00:00:00 Outpatient JUAN CARLOS TORRES SUSAN JORDAN [id number] [facility] 2023-08-19 00:00:00 2023-08-19 00:00:00 Outpatient JUAN CARLOS TORRES SUSAN JORDAN [id number] Susan Seybold 2023-08-19 00:00:00 2023-08-19 00:00:00 Outpatient JUAN CARLOS TORRES SUSAN JORDAN [id number] Susan Seybold 2023-08-14 08:10:00 2023-08-14 08:10:00 Outpatient LAB90 SUSAN JORDAN [id number] Susan Quiñonez 2023-08-07 14:00:00 2023-08-07 14:00:00 Outpatient JUAN CARLOS TORRES SUSAN JORDAN [id number] Susan Quiñonez 2023-07-22 07:10:06 2023-07-22 23:59:00 Outpatient R ENE HUNG [facility] [id number] [facility] 2023-07-22 07:10:06 2023-07-22 23:59:00 Hospital Encounter Ene Hung [facility] .840.114 350.1.13.10 4.2.7.2.686 [id number] [facility] 2023-05-22 11:30:00 2023-05-22 11:30:00 Outpatient JUAN CARLOS TORRES [id number] [facility] 2023-05-06 00:00:00 2023-05-06 00:00:00 Telephone Ene Hung [facility] .840.114 350.1.13.10 4.2.7.2.686 [id number] [facility] 2023-05-06 00:00:00 2023-05-06 00:00:00 Telephone Ene Hung [facility] ..840.114 350.1.13.10 4.2.7.2.686 [id number] [facility] 2023-05-06 00:00:00 2023-05-06 00:00:00 Patient Secure Msg Doctor Unassigned, [place] [facility] 1..840.114 350.1.13.10 4.2.7.2.686 [id number] [facility] 2023-05-05 14:30:00 2023-05-05 14:30:00 Office Visit Ene Hung [facility] 1.20.114 350.1.13.10 4.2.7.2.686 [id number] [facility] 2023-05-05 14:30:00 2023-05-05 14:12:18 Outpatient R ENE HUNG [facility] [id number] [facility] 2023-05-05 00:00:00 2023-05-05 00:00:00 Orders Only Doctor Unassigned, [place] [facility] 1.0.114 350.1.13.10 4.2.7.2.686 [id number] [facility] 2023-05-05 00:00:00 2023-05-05 00:00:00 Letter (Out) Ene Hung [facility] 1.2.114 350.1.13.10 4.2.7.2.686 [id number] [facility] 2022-03-13 11:16:00 2022-03-13 13:37:00 Emergency X ESDRAS HERR TIMOTHY [facility] [id number] [facility] 2022-03-13 11:16:00 2022-03-13 13:37:00 Emergency Esdras Herr [facility]) 1..114 350.1.13.10 4.2.7.2.686 [id number] [facility] 2021-12-13 10:30:00 2021-12-13 11:10:07 Laboratory Only Only, [facility] Uc Test Unknown, Attending Iris Day [facility] 1.0.114 350.1.13.10 4.2.7.2.686 [id number] [facility] 2021-12-13 10:30:00 2021-12-13 11:10:07 Outpatient IRIS AGUIRRE [facility] [id number] [facility] 2021-12-13 10:30:00 2021-12-13 10:30:00 Outpatient IRIS AGUIRRE [facility] [id number] [facility] 2021-12-08 00:00:00 2021-12-08 00:00:00 Patient Secure Msg Doctor Unassigned, [place] [facility] 1.2.840.114 350.1.13.10 4.2.7.2.686 [id number] [facility] 2021-12-07 00:00:00 2021-12-07 00:00:00 Letter (Out) Linda Alfaro [facility] 1.2.840.114 350.1.13.10 4.2.7.2.686 [id number] [facility] 2021-12-06 12:30:00 2021-12-06 13:55:38 Urgent Care Fauzia Mercado Unknown, Attending [facility] 1.2.840.114 350.1.13.10 4.2.7.2.686 [id number] [facility] 2021-12-06 12:30:00 2021-12-06 13:55:38 Outpatient R FAUZIA MERCADO [facility] [id number] [facility] 2021-12-06 12:30:00 2021-12-06 12:30:00 Outpatient R FAUZIA MERCADO [facility] [id number] [facility] 2021-12-03 11:54:00 2021-12-03 14:38:00 Emergency X DEVONTE MICHAEL [facility] E[facility] [id number] [facility] 2021-12-03 11:54:00 2021-12-03 14:38:00 Emergency X DEVONTE MICHAEL [facility] E[facility] [id number] [facility] 2021-12-03 11:54:00 2021-12-03 14:38:00 Emergency X DEVONTE MICHAEL [facility] E[facility] [id number] [facility] 2021-12-03 11:54:00 2021-12-03 14:38:00 Emergency Devonte Michael [facility] ([facility]) 1.2.840.114 350.1.13.10 4.2.7.2.686 [id number] [facility] 2021-12-02 10:04:00 2021-12-02 11:31:00 Emergency X GIOVANNI RAMIREZ [facility] E[facility] [id number] [facility] 2021-12-02 10:04:00 2021-12-02 11:31:00 Emergency X GIOVANNI RAMIREZ [facility] ERT [id number] [facility] 2021-12-02 10:04:00 2021-12-02 11:31:00 Emergency X GIOVANNI RAMIREZ [facility] ERT [id number] [facility] 2021-12-02 10:04:00 2021-12-02 11:31:00 Emergency Giovanni Ramirez [facility] ([facility]) 1.2.840.114 350.1.13.10 4.2.7.2.686 [id number] [facility] 2021-10-13 10:34:00 2021-10-13 13:27:00 Emergency X ALBERTO GARCIA [facility] ERT [id number] [facility] 2021-10-13 10:34:00 2021-10-13 13:27:00 Emergency Alberto Garcia [facility] ([facility]) 1.2.840.114 350.1.13.10 4.2.7.2.686 [id number] [facility] Results Test Description Test Time Test Comments Results Result Co [facility]ments Source [facility]-06 14:14:21* Test Item Value Reference Range Interpretation Comme nts HGB A1C (test code = 4548-4) 6.0 % 4.0-5.7 H ABBY (test code = ABBY) Reference RangesNormal: <5.7%Prediabetes: 5.7 - 6.4%Diabetes: > 6.5% Lab Interpretation (test code = 84747-7) Abnormal [facility] [id number] 06:17:06 * Test Item Value Reference Range Interpretation Comme nts TSH (test code = 0792689914) 1.65 See_Comment [Automated messa ge] The system which generated this result transmitted reference range: 0.45 - 4.70 mIU/L. The reference range was not used to interpret this result as normal/abnormal. Lab Interpretation (test code = 31071-7) Normal [facility] [id number] 06:17:06 * Test Item Value Reference Range Interpretation Comme nts TSH (test code = 7565454049) 1.65 See_Comment [Automated messa ge] The system which generated this result transmitted reference range: 0.45 - 4.70 mIU/L. The reference range was not used to interpret this result as normal/abnormal. Lab Interpretation (test code = 84381-3) [facility] WITH [id number] 05:58:45* Test Item Value Reference Range Interpretation Comme nts WBC (test code = 6690-2) 10.83 See_Comment [Automated messa ge] The system which generated this result transmitted reference range: 4.30 - 11.10 10*3/?L. The reference range was not used to interpret this result as normal/abnormal. RBC (test code = 789-8) 4.79 See_Comment [Automated messa ge] The system which [...] g/dL 31.6-35.1 L RDW-SD (test code = 62651-3) 47.2 fL 39.0-49.9 RDW-CV (test code = 788-0) 16.6 % 12.0-15.5 H PLT (test code = 777-3) 339 See_Comment [Automated [employer] ge] The system which generated this result transmitted reference range: 166 - 358 10*3/?L. The reference range was not used to interpret this result as normal/abnormal. MPV (test code = 84753-7) 10.9 fL 9.5-12.9 NRBC/100 WBC (test code = 1244494408) 0.0 See_Comment [Automated [employer] ssage] The system which generated this result transmitted reference range: 0.0 - 10.0 /100 WBCs. The reference range was not used to interpret this result as normal/abnormal. NRBC x10^3 (test code = 8150153147) See_Comment [Automated [employer] ge] The system which generated this result transmitted reference range: 10*3/?L. The reference range was not used to interpret this result as normal/abnormal. GRAN MAT (NEUT) % (test code = 770-8) 65.8 % IMM GRAN % (test code = 4857004233) 0.20 % LYMPH % (test code = 736-9) 24.1 % MONO % (test code = 5905-5) 6.4 % EOS % (test code = 713-8) 2.9 % BASO % (test code = 706-2) 0.6 % GRAN MAT x10^3(ANC) (test code = 9622403176) 7.14 10*3/uL 1.88-7.09 H IMM GRAN x10^3 (test code = 8587598181) 0.00-0.06 LYMPH x10^3 (test code = 731-0) 2.61 10*3/uL 1.32-3.29 MONO x10^3 (test code = 742-7) 0.69 10*3/uL 0.33-0.92 EOS x10^3 (test code = 711-2) 0.31 10*3/uL 0.03-0.39 BASO x10^3 (test code = 704-7) 0.06 10*3/uL 0.01-0.07 Lab Interpretation (test code = 38612-1) Abnormal [facility] WITH [id number] 05:58:45* Test Item Value Reference Range Interpretation Comme nts WBC (test code = 6690-2) 10.83 See_Comment [Automated [employer] ge] The system which generated this result transmitted reference range: 4.30 - 11.10 10*3/?L. The reference range was not used to interpret this result as normal/abnormal. RBC (test code = 789-8) 4.79 See_Comment [Automated [employer] ge] The system which generated this result [...] g/dL 31.6-35.1 L RDW-SD (test code = 13429-2) 47.2 fL 39.0-49.9 RDW-CV (test code = 788-0) 16.6 % 12.0-15.5 H PLT (test code = 777-3) 339 See_Comment [Automated [employer] ge] The system which generated this result transmitted reference range: 166 - 358 10*3/?L. The reference range was not used to interpret this result as normal/abnormal. MPV (test code = 94237-8) 10.9 fL 9.5-12.9 NRBC/100 WBC (test code = 6930436495) 0.0 See_Comment [Automated me ssage] The system which generated this result transmitted reference range: 0.0 - 10.0 /100 WBCs. The reference range was not used to interpret this result as normal/abnormal. NRBC x10^3 (test code = 6209222061) See_Comment [Automated messa ge] The system which generated this result transmitted reference range: 10*3/?L. The reference range was not used to interpret this result as normal/abnormal. GRAN MAT (NEUT) % (test code = 770-8) 65.8 % IMM GRAN % (test code = 6154069944) 0.20 % LYMPH % (test code = 736-9) 24.1 % MONO % (test code = 5905-5) 6.4 % EOS % (test code = 713-8) 2.9 % BASO % (test code = 706-2) 0.6 % GRAN MAT x10^3(ANC) (test code = 2607060313) 7.14 10*3/uL 1.88-7.09 H IMM GRAN x10^3 (test code = 3650545174) 0.00-0.06 LYMPH x10^3 (test code = 731-0) 2.61 10*3/uL 1.32-3.29 MONO x10^3 (test code = 742-7) 0.69 10*3/uL 0.33-0.92 EOS x10^3 (test code = 711-2) 0.31 10*3/uL 0.03-0.39 BASO x10^3 (test code = 704-7) 0.06 10*3/uL 0.01-0.07 Lab Interpretation (test code = 78372-5) [facility]normal [facility] (38817)(TOTAL CHOLESTEROL, TRIGLYCERIDES, HDL)2023-05-06 05:43:23* Test Item Value Reference Range Interpretation Comme nts CHOL (test code = 2583480913) 224 mg/dL 120-200 H HDL (test code = 3902575256) 38 mg/dL >=50 L HDLC RATIO (test code = 5751272112) 5.9 <=4.5 H TRIG (test code = 3758857345) 254 mg/dL 30-170 H LDL CHOL (test code = 49957-6) 135 mg/dL <=160 VLDL (test code = 7673529362) 51 mg/dL 5-60 Lab Interpretation (test cod e = 53539-0) Abnormal [facility] (19016)(TOTAL CHOLESTEROL, TRIGLYCERIDES, HDL)2023-05-06 05:43:23* Test Item Value Reference Range Interpretation Comme nts CHOL (test code = 5043875755) 224 mg/dL 120-200 H HDL (test code = 7936287160) 38 mg/dL >=50 L HDLC RATIO (test code = 2262682482) 5.9 <=4.5 H TRIG (test code = 2140426299) 254 mg/dL 30-170 H LDL CHOL (test code = 19445-5) 135 mg/dL <=160 VLDL (test code = 1336466252) 51 mg/dL 5-60 Lab Interpretation (test cod e = 63408-7) Abnormal [facility] [id number] 04:15:18* Test Item Value Reference Range Interpretation Comme nts GLUCOSE (test code = 2217) 90 MG/DL 70-99 BUN (test code = 2208) 14 MG/DL 6-20 CREATININE (test code = 2214) 0.77 MG/DL 0.60-1.30 eGFR (2020 CKD-EPI) (test code = 20831) 96 ML/MIN/1.73 >60 CALC BUN/CREAT (test code [...] 5-40 UNLESS OTHERWISE INDICATED, ALL TESTING PERFORMED [employer] [facility] [employer] [address] [place] [address] BREAK OUT WORKER: REGINE FREGOSO M.D. [place] NUMBER [id number] [facility] [place]. [id number] Notes Date/Time Note Provider Source 2024-02-21 16:31:39 Written/verbal d/c instructions, out of er no distress [facility] 2024-02-21 16:21:14 Gifty Singletary is a 48 year old female c/o cough, chest congestion for 2 days , pt rapid talking in complete sentences, no distress Heydi Toussaint RN [facility] 2024-02-21 16:14:00 [facility] Emergency Department Note Patient Name: Gifty Singletary Date of : 1975 48 year old female Treatment Room: [facility] Primary Care Physician: Justice Banda Patient Escorted by: Self [9] Mode of Arrival: Personal means [1] EMS Treatment Prior to ED Arrival: Travel and Exposure Screening: Symptoms Does patient have any of these symptoms?: (not recorded) Exposure Screening Has patient had contact with someone with a communicable disease in the last month?: (not recorded) Diseases exposed to:: (not recorded) Is Patient ?: (not recorded) Exposure Date: (not recorded) Chief Complaint: Chief Complaint Patient presents with Cough Congestion History of Present Illness: The patient presents from home for evaluation for cough, congestion, body aches, chest pain as well as fever for the past 2 days. She denies any sick contacts. No medication use at home for her symptoms. No sore throat. No ear pain. No shortness of breath. She does not smoke cigarettes. No history of diabetes. She does report a history of high blood pressure diagnosed many years ago but has not required medications in a number of years. Here for evaluation. Past Medical History/Immunizations: Past Medical History: Diagnosis Date Anxiety not on medications- self manges Asthma ongoing, no medication Chlamydia 19 years ago Cirrhosis of liver unknown, no medication Feeling of sadness 06/04/2018 Hypertension no medication Menstrual disorder No current concerns S/P cholecystectomy Screening for STDs (sexually transmitted diseases) 01/11/2015 STD (sexually transmitted disease) Tetanus received in last 5 years: Yes Childhood immunizations: Up-to-date Allergies: No Known Allergies Past Social History: Tobacco Use Former; Types: Cigarettes Smokeless Tobacco: Never used smokeless tobacco. Alcohol Use Not Currently. Comments: Occasionally Drug Use No. Sexual Activity Sexually active; Partners: Male; Control/Protection: Surgical. Comments: last sexual intercourse 2 years Past Surgical History: Past Surgical History: Procedure Laterality Date CHOLECYSTECTOMY 2002 ENDOMETRIAL ABLATION 2006 TUBAL LIGATION 19 years ago Review of Systems: Review of Systems Constitutional: Positive for fever. Negative for chills. HENT: Positive for congestion. Negative for sore throat. Respiratory: Positive for cough. Cardiovascular: Negative for chest pain. Gastrointestinal: Negative for abdominal pain and vomiting. Genitourinary: Negative for dysuria. Musculoskeletal: Positive for myalgias. Negative for arthralgias, neck pain and neck stiffness. Skin: Negative for wound. Neurological: Negative for dizziness. Psychiatric/Behavioral: Negative for agitation. Endocrine: Negative for goiter. Physical Exam: ED Triage Vitals Weight 02/21/24 1620 106.1 kg (234 lb) Actual or estimated 02/21/24 1620 Estimated by patient/family report Height 02/21/24 1620 1.6 m (5' 3") BP 02/21/24 1622 (!) 135/101 Pulse 02/21/24 1622 98 Resp 02/21/24 1622 20 Temp 02/21/24 1622 38.4 ?C (101.1 ?F) Temp src -- SpO2 02/21/24 1622 96 % Measured on 02/21/24 1622 Room air Physical Exam Vitals and nursing note reviewed. Constitutional: Appearance: Normal appearance. She is obese. HENT: Head: Normocephalic and atraumatic. Right Ear: Tympanic membrane and ear canal normal. Left Ear: Tympanic membrane and ear canal normal. Nose: Nose normal. Mouth/Throat: Mouth: Mucous membranes are moist. Pharynx: No oropharyngeal exudate or posterior oropharyngeal erythema. Cardiovascular: Rate and Rhythm: Normal rate and regular rhythm. Pulses: Normal pulses. Pulmonary: Effort: Pulmonary effort is normal. No respiratory distress. Breath sounds: No stridor. No wheezing or rhonchi. Abdominal: General: There is no distension. Palpations: There is no mass. Tenderness: There is no abdominal tenderness. There is no guarding. Hernia: No hernia is present. Musculoskeletal: General: Normal range of motion. Cervical back: Normal range of motion and neck supple. Skin: General: Skin is warm and dry. Neurological: General: No focal deficit present. Mental Status: She is alert and oriented to person, place, and time. Radiology: No orders to display Lab Results: Lab Results - No data to display EKG: If EKG completed, see Procedure Note. Orders and Treatments: Orders Placed This Encounter Procedures Influenza A B RSV COVID NAAT Orders Placed This Encounter Medications ibuprofen (IBU) tablet 600 mg First Provider Eval: ED Events Date/Time Event User Comments 02/21/24 1616 Medical Screening Begins MAIDA LAY DO -- 02/21/24 1616 First Provider Evaluation MAIDA LAY DO -- ED COURSE Diagnosis/Impression as of 02/21/24 1630 Acute cough Procedures: Procedures MDM: Medical Decision Making The patient presents from home for evaluation for cough, congestion, fevers as well as chest wall pain for the past 2 days. No sick contacts. She does not smoke. No shortness of breath. No ear pain or sore throat. No medications taken for her symptoms. No history of diabetes or asthma. She is febrile upon arrival to the ER at 101.1 degrees orally. Her lungs are clear bilaterally. Her tympanic members are pearly green. Her pharynx is pink and without exudates erythema. Her heart is regular rhythm. No concern for bacterial infection. Suspect a viral syndrome. Will give Motrin for her fever as well as her chest wall pain. Will screen the patient for COVID, influenza as well as RSV and have her follow-up with the [facility] for results. She remained stable here in the ER and is okay for discharge home with PCP follow-up. Problems Addressed: Acute cough: acute illness or injury Amount and/or Complexity of Data Reviewed Labs: ordered. Decision-making details documented in ED Course. Risk OTC drugs. Prescription drug management. Flowsheet Documentation: Scoring Tools: No data recorded Disposition/Condition: ED Disposition ED Disposition Disch - Home Condition Stable Comment -- Discharge Medications: Patient's Medications No medications on file Follow-up: Electronically signed by: Maida Lay DO 02/21/24 1630 [facility] 2023-12-31 15:13:29 Chief Complaint Patient presents with Follow-up Went to ER for throat swelling. Needs refill on Oxybutin Yana Guthrie LVN [facility] 2023-11-05 09:28:24 Chief Complaint Patient presents with Physical Labs done 08/15/2023 Yana Guthrie LVN [facility] 2023-09-01 13:30:39 Chief Complaint Patient presents with Follow-up 1 month follow up. Has cough with dark yellow mucus Yana Guthrie [facility]
[2024-02-24] MEDS ORDERED: ALBUTEROL 2.5 MG/3 ML NEB SOL ONE (21:43)
[2024-02-24] MEDS ORDERED: dexAMETHasone 10 MG/ML VIAL ONE (21:44)
[2024-02-24 21:56] LABS: Absolute Basophils 0.1 K/uL (0-0.5); Absolute Eosinophils 0.2 K/uL (0-0.5); Absolute Lymphocytes (CBC) 1.8 K/uL (0.7-4.9); Absolute Monocytes 0.8 K/uL (0.1-1.3); Absolute Neutrophil 7.7 K/uL (1.8-8.0); Basophils % 0.5 % (0-1.3); Eosinophils % 2.2 % (0-4.4); Hematocrit 35.7 % (36.0-45.0); Hemoglobin 11.6 g/dL (12.0-15.0); Lymphocytes % 17.2 % (15.3-44.8); MCH 25.2 pg (27.0-35.0); MCHC 32.5 g/dL (32.0-36.0); MCV 77.4 fL (80-100); MPV 8.2 fL (7.6-11.3); Monocytes % 7.1 % (3.3-12.3); Platelets 398 thou/uL (152-406); RBC Red Blood Cell Count 4.61 M/uL (3.86-4.86); Red Cell Distribution Width 17.2 % (12.1-15.2)
[2024-02-24 22:11] LABS: Anion Gap 6.3 mEq/L (5.0-15.0); BUN Blood Urea Nitrogen 8 mg/dL (7-18); Bicarbonate 25 mEq/L (21-32); Glomerular Filtration Rate 93 ml/min (=/>90); Glucose Level 103 mg/dL (74-106); Potassium 3.3 mEq/L (3.5-5.1); Sodium Level 137 mEq/L (136-145)
[2024-02-24 22:15] LABS: Troponin High Sensitivity < 3.0 pg/mL (<58.9)
[2024-02-24 22:18] LABS: SARS-CoV-2 Antigen CONTROL BLUE LINE VIS/BG OK; SARS-CoV-2 Antigen Rapid Res Negative (Negative)
--- NOTE | 2024-02-24 22:45 | RAD REPORT ---
EXAMINATION: ONE VIEW CHEST XR CLINICAL INDICATION: Female, 48 years old.,SOB TECHNIQUE: Frontal chest projection is submitted. Examination is limited by patient positioning and t echnique. COMPARISON: 01/17/2020 FINDINGS: The lungs are well inflated and clear. No pneumothorax or sizable effusion. The heart is normal in s ize. IMPRESSION: No acute intrathoracic abnormalities.
--- NOTE | 2024-02-24 23:13 | ER ---
Nurse's Notes [facility] Name: Gifty Singletary Age: 48 yrs Sex: Female : 1975 Arrival Date: 02/24/2024 Time: 20:58 Bed 4 Private MD: Diagnosis: Acute upper respiratory infection, unspecified Presentation: 02/23 21:07 Chief complaint: Patient states: Cough and shortness of breath onset 1 week ago. Pt cm10 states that she has pain in her chest when she coughs. Pt states that the cough is productive with dark green mucus. Coronavirus screen: Client denies travel out of the [place] in the last 14 days. Ebola Screen: Patient denies travel to an Ebola-affected area in the 21 days before illness onset. No symptoms or risks identified at this time. Initial Sepsis Screen: Does the patient meet any 2 criteria? HR > 90 bpm. Does the patient have a suspected source of infection? No. Patient's initial sepsis screen is negative. Risk Assessment: Do you want to hurt yourself or someone else? Patient reports no desire to harm self or others. Onset of symptoms was February 24, 2024. 21:07 Method Of Arrival: Ambulatory cm10 21:07 Acuity: ODILIA 3 cm10 Triage Assessment: 21:10 General: Appears in no apparent distress. uncomfortable, Behavior is calm, cooperative. cm10 Neuro: No deficits noted. Level of Consciousness is awake, alert, obeys commands, Oriented to person, place, time, situation, Appropriate for age. 21:30 Respiratory: the patient has mild shortness of breath. 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 - Infectious Disease History:: Denies. - Social history:: Smoking status: Patient denies any tobacco usage or history of. Screenin:07 [facility] ED Fall Risk Assessment (Adult) History of falling in the last 3 months, br2 including since admission No falls in past 3 months (0 pts) Confusion or Disorientation No (0 pts) Intoxicated or Sedated No (0 pts) Impaired Gait No (0 pts) Mobility Assist Device Used No (0 pt) Altered Elimination No (0 pt) Score/Fall Risk Level 0 - 2 = Low Risk. Abuse screen: Denies threats or abuse. Denies injuries from another. Nutritional screening: No deficits noted. Tuberculosis screening: No symptoms or risk factors identified. Assessment: 21:30 Reassessment: Patient and/or family updated on plan of care and expected duration. Pain br2 level reassessed. Patient is alert, oriented x 3, equal unlabored respirations, skin warm/dry/pink. General: Appears in no apparent distress. comfortable, Behavior is calm, cooperative, Reports fever for > 3 days. 21:30 Pain: Complains of pain in chest Pain does not radiate. Pain currently is 5 out of 10 br2 on a pain scale. Quality of pain is described as aching, Pain began 1 WEEK...CP WITH COUGH Is. Neuro: Torres Agitation-Sedation Scale (RASS): 0 - Alert and Calm Level of Consciousness is awake, alert, obeys commands, Oriented to person, place, time, situation. Cardiovascular: Reports chest pain, shortness of breath, WITH COUGH Heart tones present Rhythm is regular. Respiratory: Airway is patent Respiratory effort is even, unlabored, Breath sounds are coarse in left posterior upper lobe and left posterior lower lobe. GI: No signs and/or symptoms were reported involving the gastrointestinal system. Abdomen is round Bowel sounds present X 4 quads. Abd is soft and non tender X 4 quads. : Reports URINE LEAKAGE WHEN COUGHING. EENT: No signs and/or symptoms were reported regarding the EENT system. Derm: No signs and/or symptoms reported regarding the dermatologic system. Skin is intact, Skin is dry, Skin is normal, Skin temperature is warm. Musculoskeletal: No signs and/or symptoms reported regarding the musculoskeletal system. Capillary refill < 3 seconds, Range of motion: intact in all extremities. 22:33 Reassessment: Patient and/or family updated on plan of care and expected duration. Pain br2 level reassessed. Patient is alert, oriented x 3, equal unlabored respirations, skin warm/dry/pink. Patient states feeling better. Patient states symptoms have improved. Respiratory: Airway is patent Respiratory effort is even, unlabored, Respiratory pattern is regular, symmetrical, Breath sounds are clear bilaterally. Vital Signs: 21:07 BP 155 / 90; Pulse 99; Resp 22; Temp 98.1(IR); Pulse Ox 94% on R/A; Weight 106.14 kg; cm10 Height 5 ft. 3 in. ; Pain 5/10; 22:34 BP 141 / 75; Pulse 100; Resp 20 S; Pulse Ox 97% on R/A; br2 23:01 BP 140 / 75; Pulse 104; Resp 20 S; Pulse Ox 98% on R/A; br2 21:07 Body Mass Index 41.45 (106.14 kg, 160.02 cm) cm10 21:07 Pain Scale: Adult cm10 ED Course: 21:00 Patient arrived in ED. [email or web address] 21:07 Patient has correct armband on for positive identification. Placed in gown. Bed in low br2 position. Call light in reach. Side rails up X 1. Provided Education on: PLAN OF CARE. 21:09 Triage completed. cm10 21:10 Arm band placed on Patient placed in an exam room, on a stretcher. cm10 21:11 Jordan Church NP is PHCP. pm1 21:11 Amor Bautista MD is Attending Physician. pm1 21:26 Shelia Khan, SHAHID is Primary Nurse. al5 21:30 Inserted saline lock: 20 gauge in right antecubital area, using aseptic technique. br2 Blood collected. Flushed with 10 mL NS. 21:30 IV discontinued, intact, bleeding controlled, No redness/swelling at site. br2 21:51 SARS RAPID Sent. al5 21:51 Influenza Screen (a \T\ B) Sent. al5 21:51 CBC with Diff Sent. al5 22:09 Primary Nurse role handed off by Shelia Khan, RN br2 22:09 Emilie Lawson, SHAHID is Primary Nurse. br2 22:24 Chest Single View XRAY In Process Unspecified. EDMS 22:40 Awaiting radiology results. br2 23:47 No provider procedures requiring assistance completed. br2 Administered Medications: 21:51 Drug: Decadron - Dexamethasone IVP 10 mg IVP once Route: IVP; Site: right antecubital; al5 22:35 Follow up: Response: No adverse reaction; Marked relief of symptoms br2 21:51 Drug: Albuterol Inhalation 5 mg Inhalation once Route: Inhalation; al5 23:46 Drug: Tussionex Pennkinetic ER PO Suspension 5 ml PO once Route: PO; br2 Medication: 23:49 VIS not applicable for this client. br2 Outcome: 21:30 Discharged to home ambulatory, br2 21:30 Condition: improved 21:30 Discharge instructions given to patient, Instructed on discharge instructions, follow up and referral plans. Demonstrated understanding of instructions, follow-up care, medications, Prescriptions given X 3, 23:13 Discharge ordered by . pm1 23:49 Patient left the ED. br2 Signatures: Dispatcher [employer] EDMS Jordan Church NP SECOND OFFICER pm1 Zuleika [id number] Yanet Perez RN RN cm10 Shelia Khan RN RN al5 Emilie Lawson RN RN br2 Corrections: (The following items were deleted from the chart) 21:10 21:09 Allergies: Aspirin; cm10 cm10
--- NOTE | 2024-02-24 23:13 | EDPHYS ---
Physician Documentation [facility] Name: Gifty Singletary Age: 48 yrs Sex: Female : 1975 Arrival Date: 02/24/2024 Time: 20:58 Bed 4 Private MD: ED Physician Amor Bautista HPI: 02/23 21:37 This 48 yrs old Female presents to ER via Ambulatory with complaints of pm1 Shortness Of Breath, Cough. 21:37 The patient has shortness of breath at rest. Onset: The symptoms/episode began/occurred pm1 1 week(s) ago. The patient's shortness of breath is aggravated by nothing, is alleviated by nothing. Associated signs and symptoms: Pertinent positives: chest pain, productive cough. Severity of symptoms: in the emergency department the symptoms are worse. The patient has been recently seen by a physician: with similar presenting complaints, was seen at another ER, had swabs for flu and covid and was given antipyretic for fever. 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 - Infectious Disease History:: Denies. - Social history:: Smoking status: Patient denies any tobacco usage or history of. ROS: 21:37 Back: Negative for injury and pain, MS/Extremity: Negative for injury and deformity, pm1 Skin: Negative for injury, rash, and discoloration, 21:37 Constitutional: Positive for fever, that has resolved, 21:37 Cardiovascular: Positive for chest pain, with cough, 21:37 Respiratory: Positive for cough, with green sputum, shortness of breath, at rest. 21:37 All other systems are negative, Exam: 21:37 Constitutional: This is a well developed, well nourished patient who is awake, alert, pm1 and in no acute distress. Head/Face: Normocephalic, atraumatic. 21:37 Cardiovascular: Exam negative for acute changes, Rate: normal, Rhythm: regular, Pulses: no pulse deficits are appreciated, Heart sounds: normal, 21:37 Respiratory: the patient does not display signs of respiratory distress, Breath sounds: bronchial sounds, that are mild, 21:37 Neuro: Exam negative for acute changes, Orientation: is normal, Mentation: is normal, 22:22 ECG was reviewed by the Attending Physician. pm1 Vital Signs: 21:07 BP 155 / 90; Pulse 99; Resp 22; Temp 98.1(IR); Pulse Ox 94% on R/A; Weight 106.14 kg; cm10 Height 5 ft. 3 in. ; Pain 5/10; 22:34 BP 141 / 75; Pulse 100; Resp 20 S; Pulse Ox 97% on R/A; br2 23:01 BP 140 / 75; Pulse 104; Resp 20 S; Pulse Ox 98% on R/A; br2 21:07 Body Mass Index 41.45 (106.14 kg, 160.02 cm) cm10 21:07 Pain Scale: Adult cm10 MDM: 21:11 Patient medically screened. pm1 23:06 Differential diagnosis: Pneumonia, URI, Bronchitis, Covid, influenza. pm1 23:06 Data interpreted: Pulse oximetry: on room air is 98 %. Interpretation: normal. pm1 23:06 Data reviewed: vital signs. pm1 23:06 Care significantly affected by the following chronic conditions: Asthma. Counseling: I pm1 had a detailed discussion with the patient and/or guardian regarding the historical points, exam findings, and any diagnostic results supporting the discharge/admit diagnosis, lab results, radiology results, the need for outpatient follow up, to return to the emergency department if symptoms worsen or persist or if there are any questions or concerns that arise at home. 02/23 21:37 Order name: CBC with Diff; Complete Time: 22:55 pm1 02/23 21:37 Order name: Influenza Screen (a \T\ B); Complete Time: 22:55 pm1 02/23 21:37 Order name: SARS RAPID; Complete Time: 22:55 pm1 02/23 21:37 Order name: Basic Metabolic Panel; Complete Time: 22:16 pm1 02/23 21:37 Order name: Troponin HS; Complete Time: 22:16 pm1 02/23 21:37 Order name: Chest Single View XRAY; Complete Time: 22:55 pm1 02/23 21:37 Order name: EKG; Complete Time: 21:38 pm1 02/23 21:37 Order name: IV Saline Lock; Complete Time: 21:51 pm1 02/23 21:37 Order name: Cardiac monitoring; Complete Time: 21:51 pm1 02/23 21:37 Order name: EKG - Nurse/Tech; Complete Time: 21:51 pm1 02/23 21:37 Order name: Labs collected and sent; Complete Time: 21:51 pm1 02/23 21:37 Order name: O2 Per Protocol; Complete Time: 21:51 pm1 02/23 21:37 Order name: O2 Sat Monitoring; Complete Time: 21:51 pm1 EC:22 Rate is 91 beats/min. Rhythm is regular, Normal Sinus Rhythm. Left axis deviation pm1 noted. PA interval is normal. QRS interval is normal. QT interval is normal. No Q waves. T waves are Normal. No ST changes noted. Clinical impression: Normal ECG. Administered Medications: 21:51 Drug: Decadron - Dexamethasone IVP 10 mg IVP once Route: IVP; Site: right antecubital; al5 22:35 Follow up: Response: No adverse reaction; Marked relief of symptoms br2 21:51 Drug: Albuterol Inhalation 5 mg Inhalation once Route: Inhalation; al5 23:46 Drug: Tussionex Pennkinetic ER PO Suspension 5 ml PO once Route: PO; br2 Disposition: 02/24 05:21 Co-signature as Attending Physician, Amor Bautista MD I agree with the assessment sp4 and plan of care. I reviewed the patient's care provided by the Advanced Practice Provider and agree with the diagnosis and treatment plan. Disposition Summary: 02/24/24 23:13 Discharge Ordered Notes: Location: Home pm1 Problem: new pm1 Symptoms: have improved pm1 Condition: Stable pm1 Diagnosis - Acute upper respiratory infection, unspecified pm1 Followup: pm1 - With: Emergency Department - When: As needed - Reason: Worsening of condition Followup: pm1 - With: Private Physician - When: 2 - 3 days - Reason: Recheck today's complaints, Continuance of care, Re-evaluation by your physician Discharge Instructions: - Discharge Summary Sheet pm1 - Upper Respiratory Infection, Adult pm1 Forms: - Medication Reconciliation Form pm1 - Antibiotic Education pm1 - Prescription Opioid Use pm1 - Patient Portal Instructions pm1 - Leadership Thank You Letter pm1 Prescriptions: - Medrol (Chris) 4 mg Oral Tablets, Dose Pack - take 1 tablet ORAL route as directed - follow package instructions; 1 packet; pm1 Refills: 0, Product Selection Permitted - Guaifenesin AC 10-100 mg/5 mL Oral Liquid - take 10 milliliters ORAL route every 4 hours As needed; 240 milliliter; pm1 Refills: 0, Product Selection Permitted Signatures: Dispatcher [employer] EDMS Jordan Church, FORKLIFT SUPERVISOR FORKLIFT SUPERVISOR pm1 Amor Bautista MD MD sp4 Yanet Perez, RN RN cm10 Shelia Khan, RN RN al5 Emilie Lawson, RN RN br2 Corrections: (The following items were deleted from the chart) 02/23 21:10 21:09 Allergies: Aspirin; cm10 cm10 21:38 21:38 CBC+H.LAB.BRZ ordered. EDMS EDMS 21:38 21:38 Influenza Screen (A \T\ B)+BA.LAB.BRZ ordered. EDMS EDMS 21:38 21:38 SARS-COV-2 Antigen Rapid+I.LAB.BRZ ordered. EDMS EDMS 21:38 21:38 BASIC METABOLIC PANEL+C.LAB.BRZ ordered. EDMS EDMS 21:38 21:38 Troponin High Sensitivity+C.LAB.BRZ ordered. EDMS EDMS
[2024-02-24] MEDS ORDERED: HYDROCODONE/CHLORPHEN 5 ML/OSYR ONE (23:26)
[2024-02-25 00:58] VITALS: TEMP 98.1
[2024-02-25 01:02] VITALS: BP 140/75; O2SAT 98
--- NOTE | 2024-02-25 12:08 | EKG ---
Test Date: 2024-02-24 Test Time: 21:54:40 Sock Ironer: TIMMY MEASUREMENT RESULTS: Intervals: Rate: 91 NC: 146 QRSD: 76 QT: 344 QTc: 423 [place]: P: 18 NC: 146 QRS: -39 T: 31 INTERPRETIVE STATEMENTS: Normal sinus rhythm Left axis deviation Abnormal ECG Compared to ECG 01/17/2020 02:02:11 Left-axis deviation now present Electronically Signed On 02-25-24 12:07:06 CDT by Smooth Rojas
== END 2024-02-24 23:49 | disposition home or self-care (01) ==
LOC: ER 20:58
DX: J06.9 Acute upper respiratory infection, unspecified (principal); Z11.52 Encounter for screening for COVID-19
CPT/HCPCS: 36415; 71045; 80048; 84484; 85025; 87804; 87811; 93005; 96374; 99285; J1100; J7613

== ENCOUNTER 2024-09-21 06:55 | Emergency (ER) | payer OTHER ==
--- OUTSIDE RECORDS SUMMARY | 2024-09-21 07:01 | XMS REPORT | Continuity of Care Document ---
Author Name Unknown Address [address] [facility] [place] [address] [facility] [place] Address [address] [facility] [place] [address] Care Team Providers Care Treatment Counselor Name Role Phone Cecil JOSE Julia Primary Care Physician [phone] LACIE MILLS Attending Clinician Unavailable LIANNE AYALA Attending Clinician Unavailable RUTH DUARTE Attending Clinician Unava ilJUAN CARLOS Barber Attending Clinician Unavailab MAIDA Romero Attending Clinician Unavailab MAIDA Romero Attending Clinician Unavailab Maida Romero DO Attending Clinician JACINTO BRAN Attending Clinician Unavailable RYAN SAAVEDRA Attending Clinician Unavailable RAYO SEARS Attending Clinician Unavailable LAB90 Attending Clinician Unavailable JESSIKA SAHU Attending Clinician Unavailable CHUNG YOUNG Attending Clinician Unava MARY Summers Attending Clinician Unavailable ENE HUNG Attending Clinician UnavailEne Trimble CNM Attending Clinician Doctor Unassigned, [place] Attending Clinician U CHANA Barkley Attending Clinician Unavail able MARY HERR Attending Clinician Unavailable MARY HERR Attending Clinician Unavailable Only, [facility] Test Attending Clinician Unavailjavi e Unknown, Attending Attending Clinician Unavailab Guillermo Jane Attending Clinicia n GUILLERMO DAY Attending Clinician Un available Linda Alfaro RN Attending Clinician Unavailable Caleb GARCIA, Fauzia Attending Clinician [phone] FAUZIA MERCADO Attending Clinician UnavailDEVONTE Langford Attending Clinician Unavail able Devonte Michael MD Attending Clinician [phone] GIOVANNI DOUGLASS Attending Clinician Unavailable ALEXANDR GARCIA Attending Clinician Unavailable Alexandr Garcia MD Attending Clinician [phone] GIOVANNI DOUGLASS Admitting Clinician Unavailable ALEXANDR GARCIA Admitting Clinician Unavailable Payers Payer Name Policy Type Policy Number Effective Date Expirati on Date Source [facility] [id number] 2024 00:00:00 [employer] [facility] 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 9 [id number] 2023 00:00:00 [facility] [id number] 2021 00:00:00 Problems Condition Name Condition Details Condition Category Status Onset Date Resolution Date Last Treatment Date Treating Clinician Comments Source Well adult exam Well adult exam Disease Active 11-04 00:00: 00 Susan gandhi Class 3 severe obesity due to excess calories without serious comorbidit y with body mass index (BMI) of 40.0 to 44.9 in adult Class 3 severe obesity due to excess calories without serious comorbidit y with body mass index (BMI) of 40.0 to 44.9 in adult Disease Active 08-06 00:00: 00 Susan gandhi Encounter for screening for diabetes mellitus Encounter for screening for diabetes mellitus Disease Active 08-06 00:00: 00 Susan gandhi Unable to lose weight Unable to lose weight Disease Active 08-06 00:00: 00 Susan gandhi Mild intermitte nt asthma without complicati on ([facility]) Mild intermitte nt asthma without complicati on ([facility]) Disease Active 08-06 00:00: 00 Susan gandhi Family history of hypertensi on Family history of hypertensi on Disease Active 08-06 00:00: 00 Susan gandhi Morbid obesity Morbid obesity Disease Active 2016-06 0 00:00: 00 [facility] History of tubal ligation History of tubal ligation Disease Active 01-12 00:00: 00 [facility] History of hypertensi on History of hypertensi on Disease Active 01-12 00:00: 00 [facility] Asthma Asthma Disease Active 01-11 00:00: 00 Overview: Formattin g of this note might be different from the original. 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 [facility] Atypical chest pain Atypical chest pain Disease Resolve d 7-04 00:00: 00 2023-05-05 00:00:00 2023-05-05 13:29:14 [facility] of family member of family member Disease Resolve d 1-04 00:00: 00 2023-05-05 00:00:00 2023-05-05 13:29:16 [facility] Feeling of sadness Feeling of sadness Disease Resolve d 1-04 00:00: 00 2023-05-05 00:00:00 2023-05-05 13:29:18 [facility] Menorrhagi a with regular cycle Menorrhagi a with regular cycle Disease Resolve d 2016-06 00:00: 00 2023-05-05 00:00:00 2023-05-05 13:29:11 [facility] BMI 40.0-44.9, adult BMI 40.0-44.9, adult Disease Resolve d 2016-06 0-23 00:00: 00 2018-06-04 00:00:00 2018-06-04 09:06:44 [facility] Excessive or frequent menstruati on Excessive or frequent menstruati on Disease Resolve d 8 00:00: 00 2015-01-12 00:00:00 2015-01-12 17:39:22 [facility] Allergies, Adverse Reactions, Alerts Allergy Name Allergy Type Status Severity Reaction(s) Onset Date Inactive Date Treating Clinician Comments Source NO KNOWN ALLERGIE S Drug Class Active [facility] Social History Social Habit Start Date Stop Date Quantity Comments Source Sexual orientation Dana Quiñonez - External History of tobacco use Cigarette Smoker [facility] History SDOH Alcohol Frequency [facility] B[facility] Alcoholic beverage intake 2024-02-21 00:00:00 2024-02-21 00:00:00 Ex-drinker (finding) [facility] History of Social function 2023-11-05 00:00:00 2023-11-05 00:00:00 Susan Quiñonez - External Tobacco use and exposure 2023-05-05 00:00:00 2023-05-05 00:00:00 Smokeless tobacco non-user [facility] Alcohol intake 2023-05-05 00:00:00 2023-05-05 00:00:00 Ex-drinker (finding) [facility] Exposure to SARS-CoV-2 (event) 2022-03-03 00:00:00 2022-03-13 11:16:00 Not sure [facility] Alcohol Comment 2015-01-11 00:00:00 2015-01-11 00:00:00 Occasionally [facility] Sex assigned at 1975 00:00:00 1975 00:00:00 Susan Quiñonez - External Smoking Status Start Date Stop Date Source Never smoked tobacco Susan Quiñonez - External Ex-smoker 2023-05-05 00:00:00 2023-05-05 00:00:00 [facility] Occasional tobacco smoker 2015-01-11 00:00:00 [facility] Medications Ordered Medication Name Filled Medication Name Start Date Stop Date Current Medication? Ordering Clinician Indication Dosage Frequency Signature (SIG) Comments Components Source oxybutynin chloride ER 10 mg tablet,exte nded release 24 hr 06-23 00:00: 00 Yes 1mg Lobito Ontiveros olmesartan 20 mg tablet 06-23 00:00: 00 Yes 1mg Lobito Ontiveros topiramate 25 mg tablet 06-23 00:00: 00 Yes 1mg Lobito Ontiveros rosuvastati n 20 mg tablet 06-23 00:00: 00 Yes 1mg Lobito Ontiveros topiramate 25 mg tablet 06-08 00:00: 00 Yes 1mg Lobito Ontiveros rosuvastati n 20 mg tablet 06-08 00:00: 00 Yes 1mg Lobito Ontiveros olmesartan 20 mg tablet 2023-06 00:00: 00 Yes 1mg Lobito Ontiveros atorvastati n 20 mg tablet 2023-06 00:00: 00 Yes 1mg Lobito Ontiveros oxybutynin chloride ER 10 mg tablet,exte nded release 24 hr 2023-06 00:00: 00 Yes 1mg Lobito Ontiveros topiramate 25 mg tablet 2023-06 00:00: 00 Yes 1mg Lobito Ontiveros cyclobenzap rine 10 mg tablet 2023-06 00:00: 00 Yes 1mg Lobito Ontiveros atorvastati n 20 mg tablet 2023-06 0- 00:00: 00 Yes 1mg Lobito Ontiveros prednisone 50 mg tablet 2023-06 0 00:00: 00 Yes 1mg Lobito Ontiveros olmesartan 20 mg tablet 2023-06 0 00:00: 00 Yes 1mg Lobito Ontiveros ibuprofen (IBU) tablet 600 mg 02-20 21:30: 00 02-20 21:29 :00 No 600mg 600 mg, Oral, ONCE, 1 dose, On 02/21/24 at 1630, BRITNEY [facility] ity [facility] Oxybutynin Chloride 10 MG oral TABLET SR 24 HR 8- 00:00: 00 Yes [id number] 10mg QD Take 1 tablet (10 mg total) by mouth daily. Susan gandhi Cetirizine HCl 10 MG oral Capsule 8 00:00: 00 Yes [id number] 10mg QD Take 1 capsule (10 mg total) by mouth daily. Susan gandhi Benzonatate (Tessalon Perles) 100 MG oral Capsule 12-30 00:00: 00 Yes [id number] 100mg Q.[id number] 3D Take 1 capsule (100 mg total) by mouth 3 times daily as needed for cough. Susan gandhi Topiramate 25 MG oral Tablet 12-26 00:00: 00 Yes [id number] 104 25mg Q.5D TAKE 1 TABLET (25 MG TOTAL) BY MOUTH 2 TIMES DAILY. Susan gandhi Ferrous Sulfate 325 (65 Fe) MG oral Tablet 11-16 00:00: 00 Yes [id number] 325mg QD Take 1 tablet (325 mg total) by mouth daily (with breakfast) . Susan gandhi Cyclobenzap rine HCl 10 MG oral Tablet 11-08 00:00: 00 Yes 10mg Q.[id number] 3D Take 1 tablet (10 mg total) by mouth every 8 hours as needed for muscle spasms. Susan gandhi Diclofenac Sodium 75 MG oral Tablet Delayed Response 11-08 00:00: 00 12-30 00:00 :00 No 75mg Q.5D Take 1 tablet (75 mg total) by mouth 2 times daily. Susan gandhi Topiramate 25 MG oral Tablet 6-03 00:00: 00 Yes [id number] 104 25mg Take 1 tablet (25 mg total) by mouth 2 times daily. Susan gandhi Oxybutynin Chloride 10 MG oral TABLET SR 24 HR 5-19 00:00: 00 12-30 00:00 :00 No [id number] 10mg QD Take 1 tablet (10 mg total) by mouth daily. Susan gandhi Albuterol HFA 108 (90 Base) MCG/ACT IN AERS - 00:00: 00 Yes [id number] 2{puff} Q.25D Inhale 2 puffs into the lungs every 6 hours as needed for wheezing. Susan gandhi Benzonatate (Tessalon Perles) 100 MG oral Capsule 08-31 00:00: 00 12-30 00:00 :00 No [id number] 100mg Q.[id number] 3D Take 1 capsule (100 mg total) by mouth 3 times daily as needed for cough. Susan gandhi Semaglutide -KIRAN-Anjel ght Management 0.25 MG/0.5ML Subcutaneou s Solution Auto-inject or 08-31 00:00: 00 12-30 00:00 :00 No [id number] .25mg Q1W Inject 0.25 mg into the skin once a week. Susan gandhi Cefdinir 300 MG oral Capsule -20 00:00: 00 08-31 00:00 :00 No [id number] 300mg Take 1 capsule (300 mg total) by mouth 2 times daily Please take with food. Susan gandhi Albuterol HFA 108 (90 Base) MCG/ACT IN AERS 08-06 00:00: 00 Yes [id number] 2{puff} Q.25D Inhale 2 puffs into the lungs every 6 hours as needed for wheezing. Susan gandhi AZITHROMYCI N 250MG 9-10 00:00: 00 Yes 250 Lobito Ontiveros SWISH 15 ML IN MOUTH TWICE DAILY FOR 14 DAYS DIRECTED 10-25 00:00: 00 Yes Lobito Ontiveros TAKE 1 TABLET BY MOUTH EVERY 12 HOURS FOR 10 DAYS 10-25 00:00: 00 Yes Lobito Ontiveros TK 2 TS PO ON DAY 1, THEN TK 1 T PO D FOR 4 DAYS 2021-06 0-17 00:00: 00 Yes 250 Lobito Ontiveros cephALEXin (KEFLEX) capsule 500 mg 2021-06 17:30: 00 03-13 17:54 :00 No 500mg 500 mg, Oral, ONCE, 1 dose, On Laura 03/13/22 at 1230, BRITNEY
Re ason for Anti-Infec tive: Documented Infection< br>Documen bethel Infection Site: Skin / Soft Tissue
Duration of Therapy: 10 days [facility] ibuprofen 600 mg tablet 2021-06 00:00: 00 05-05 00:00 :00 No [id number] 600mg Take 1 tablet by mouth every 6 (six) hours as needed for Pain (scale 4-6) for up to 30 doses. [facility] cephALEXin 500 mg capsule 2021-06 00:00: 00 03-24 04:59 :00 No [id number] 1000mg Take 2 capsules by mouth in the morning and 2 capsules in the evening. Do all this for 10 days. [facility] azithromyci n 250 mg tablet 12-03 00:00: 00 05-05 00:00 :00 No [id number] 250mg Take 1 tablet by mouth SEE-INSTRU CTIONS. Take 500 mg day 1, then 250 mg days 2 to 5. [facility] benzonatate 100 mg capsule 12-03 00:00: 00 05-05 00:00 :00 No [id number] 100mg Take 1 capsule by mouth every 8 (eight) hours as needed for Cough. [facility] Dose Unknown -18 00:00: 00 Yes Lobito Ontiveros Dose Unknown 6-04 00:00: 00 Yes Lobito Ontiveros naproxen 500 mg tablet,kam yed release - 00:00: 00 Yes 1mg Lobito Ontiveros Dose Unknown 1- 00:00: 00 Yes Lobito Ontiveros oxybutynin chloride 5 mg tablet 1- 00:00: 00 Yes 1mg Lobito Ontiveros nitrofurant oin macrocrysta l 100 mg capsule 06-21 00:00: 00 Yes 1mg Lobito Ontiveros naproxen 500 mg tablet,kam yed release 2019-06- 00:00: 00 Yes 1mg Lobito Ontiveros oxybutynin chloride 5 mg tablet 02-08 00:00: 00 Yes 1mg Lobito Ontiveros naproxen 500 mg tablet,kam yed release 02-08 00:00: 00 Yes 1mg Lobito Ontiveros terconazole 0.8 % vaginal cream 06-04 00:00: 00 05-05 00:00 :00 No [id number] 1{appli cator} Insert 1 Applicator into vagina at bedtime. [facility] Immunizations Ordered Immunization Name Filled Immunization Name Date Status Comments Source TDAP 2024-02-21 16:24:00 Completed [facility] Influenza Virus Vaccine Quad .5 mL IM 6+ MO (FLUZONE/FLULAVAL/F LUARIX) 2024-02-21 16:24:00 Completed [facility] TDAP 2023-07-22 07:10:06 Completed [facility] Influenza Virus Vaccine Quad .5 mL IM 6+ MO (FLUZONE/FLULAVAL/F LUARIX) 2023-07-22 07:10:06 Completed [facility] TDAP 2023-05-06 00:00:00 Completed [facility] Influenza Virus Vaccine Quad .5 mL IM 6+ MO (FLUZONE/FLULAVAL/F LUARIX) 2023-05-06 00:00:00 Completed [facility] TDAP 2023-05-06 00:00:00 Completed [facility] Influenza Virus Vaccine Quad .5 mL IM 6+ MO (FLUZONE/FLULAVAL/F LUARIX) 2023-05-06 00:00:00 Completed [facility] TDAP 2023-05-06 00:00:00 Completed [facility] Influenza Virus Vaccine Quad .5 mL IM 6+ MO (FLUZONE/FLULAVAL/F LUARIX) 2023-05-06 00:00:00 Completed [facility] TDAP 2023-05-05 14:30:00 Completed [facility] Influenza Virus Vaccine Quad .5 mL IM 6+ MO (FLUZONE/FLULAVAL/F LUARIX) 2023-05-05 14:30:00 Completed [facility] influenza, injectable influenza, injectable 2023-05-05 00:00:00 Completed Lobito Ontiveros TDAP 2023-05-05 00:00:00 Completed [facility] Influenza Virus Vaccine Quad .5 mL IM 6+ MO (FLUZONE/FLULAVAL/F LUARIX) 2023-05-05 00:00:00 Completed [facility] TDAP 2023-05-05 00:00:00 Completed [facility] Influenza Virus Vaccine Quad .5 mL IM 6+ MO (FLUZONE/FLULAVAL/F LUARIX) 2023-05-05 00:00:00 Completed [facility] TDAP 2021-12-08 00:00:00 Completed [facility] Influenza Virus Vaccine Quad .5 mL IM 6+ MO (FLUZONE/FLULAVAL/F LUARIX) 2021-12-08 00:00:00 Completed [facility] Influenza Virus Vaccine Quad .5 mL IM 6+ MO 2018-06-04 00:00:00 Completed [facility] Influenza Virus Vaccine Quad .5 mL IM 6+ MO 2018-06-04 00:00:00 Completed [facility] TDAP 2015-01-11 00:00:00 Completed [facility] TDAP 2015-01-11 00:00:00 Completed [facility] Influenza Virus Vaccine, No Preserv, [...] up Unknown Completed Susan Quiñonez - External Tdap- (Boostrix, Adacel) Unknown Completed Susan Quiñonez - External Vital Signs Vital Name Observation Time Observation Value Comments Giovanna pires Systolic blood pressure 2024-02-21 21:22:00 135 mm[Hg] [facility] Diastolic blood pressure 2024-02-21 21:22:00 101 mm[Hg] [facility] Heart rate 2024-02-21 21:22:00 98 /min [facility] Body temperature 2024-02-21 21:22:00 38.39 Diana [facility] Respiratory rate 2024-02-21 21:22:00 20 /min [facility] Oxygen saturation in Arterial blood by Pulse oximetry 2024-02-21 21:22:00 96 /min [facility] Body height 2024-02-21 21:20:00 160 cm [facility] Body weight 2024-02-21 21:20:00 106.142 kg [facility] BMI 2024-02-21 21:20:00 41.45 kg/m2 [facility] Systolic blood pressure 2023-12-31 19:56:00 124 mm[Hg] Susansarthak Javiero ld - External Diastolic blood pressure 2023-12-31 19:56:00 76 mm[Hg] Susan Streetybo ld - External Heart rate 2023-12-31 19:56:00 68 /min Travis vicente artemioold - External Body temperature 2023-12-31 19:56:00 36.61 Diana Susan Streetybold - External Respiratory rate 2023-12-31 19:56:00 20 /min Susan ybold - External Body height 2023-12-31 19:56:00 160 cm Olamide ey Seybold - External Body weight 2023-12-31 19:56:00 106.142 kg Olamide ey Seybold - External BMI 2023-12-31 19:56:00 41.45 kg/m2 Olamide monica Seybold - External Oxygen saturation in Arterial [...] External Heart rate 2023-11-05 14:23:00 78 /min Dayronse y Seybold - External Body temperature 2023-11-05 [...] blood pressure 2023-09-01 18:26:00 80 mm[Hg] Susan Streetybo ld - External Heart rate 2023-09-01 18:26:00 88 /min Dayronse y Seybold - External Body temperature 2023-09-01 18:26:00 37 Diana Susan Seybold - External Respiratory rate 2023-09-01 18:26:00 16 /min Susan Streetybold - External Body height 2023-09-01 18:26:00 160 cm Olamide ey Seybold - External Body weight 2023-09-01 18:26:00 106.595 kg Olamide ey Seybold - External BMI 2023-09-01 18:26:00 41.63 kg/m2 Olamide ey Seybold - External Oxygen saturation in Arterial blood by Pulse oximetry 2023-09-01 18:26:00 97 /min Susan Streetybo ld - External Systolic blood pressure 2023-08-07 20:04:00 118 mm[Hg] Susan Streetybo ld - External Diastolic blood pressure 2023-08-07 20:04:00 80 mm[Hg] Susan Streetybo ld - External Heart rate 2023-08-07 20:04:00 76 /min Travis vicente Seybold - External Body temperature 2023-08-07 20:04:00 36.33 Diana Susan Seybold - External Respiratory rate 2023-08-07 20:04:00 16 /min Susan Streteybold - External Body height 2023-08-07 20:04:00 160 cm Olamide ey Seybold - External Body weight 2023-08-07 20:04:00 106.765 kg Olaimde ey Seybold - External BMI 2023-08-07 20:04:00 41.69 kg/m2 Olamide anderson Seybold - External Oxygen saturation in Arterial blood by Pulse oximetry 2023-08-07 20:04:00 98 /min Susan Streetybo ld - External Systolic blood pressure 2023-05-05 19:14:00 143 mm[Hg] [facility] Diastolic blood pressure 2023-05-05 19:14:00 84 mm[Hg] [facility] Heart rate 2023-05-05 19:14:00 80 /min [facility] Body temperature 2023-05-05 19:10:00 36.17 Diana [facility] Respiratory rate 2023-05-05 19:10:00 20 /min [facility] Body height 2023-05-05 19:10:00 154.9 cm [facility] Body weight 2023-05-05 19:10:00 105.461 kg [facility] BMI 2023-05-05 19:10:00 43.93 kg/m2 [facility] Systolic blood pressure 2022-03-13 17:57:00 136 mm[Hg] [facility] Diastolic blood pressure 2022-03-13 17:57:00 86 mm[Hg] [facility] Heart rate 2022-03-13 17:57:00 81 /min [facility] Respiratory rate 2022-03-13 17:57:00 16 /min [facility] Oxygen saturation in Arterial blood by Pulse oximetry 2022-03-13 17:57:00 100 /min [facility] Body temperature 2022-03-13 16:17:00 36.5 Diana [facility] Body height 2022-03-13 16:14:00 154.9 cm [facility] Body weight 2022-03-13 16:14:00 104.327 kg [facility] BMI 2022-03-13 16:14:00 43.46 kg/m2 [facility] Respiratory Rate 2024-07-07 16:33:00 18.00 /min Lobitochantelle Ontiveros BP Systolic 2024-07-07 16:33:00 105 mm[Hg] Step hen F Weston BP Diastolic 2024-07-07 16:33:00 72 mm[Hg] Rashid phen F Weston Weight Measured 2024-07-07 16:33:00 215.00 pounds Lobito Ontiveros Height Measured 2024-07-07 16:33:00 69.24 inches Lobito Ontiveros Body Temperature 2024-07-07 16:33:00 98.10 degrees Lobito Ontiveros Heart Rate 2024-07-07 16:33:00 68.00 /min Flor en F Weston BP Systolic 2024-06-23 10:39:00 114 mm[Hg] Step hen F Weston BP Diastolic 2024-06-23 10:39:00 77 mm[Hg] Rashid phen F Weston Weight Measured 2024-06-23 10:39:00 216.40 pounds Lobito F Weston Height Measured 2024-06-23 10:39:00 69.24 inches Lobito F Weston Body Temperature 2024-06-23 10:39:00 98.00 degrees Lobito F Weston Heart Rate 2024-06-23 10:39:00 81.00 /min Flor en F Weston Respiratory Rate 2024-06-23 10:39:00 18.00 /min Lobito F Weston BP Systolic 2024-06-08 11:02:00 126 mm[Hg] Step hen F Weston BP Diastolic 2024-06-08 11:02:00 86 mm[Hg] Rashid phen F Weston Weight Measured 2024-06-08 11:02:00 221.00 pounds Lobito F Weston Height Measured 2024-06-08 11:02:00 69.24 inches Lobito F Weston Body Temperature 2024-06-08 11:02:00 98.10 degrees Lobito F Weston Heart Rate 2024-06-08 11:02:00 64.00 /min Flor en F Weston Respiratory Rate 2024-06-08 11:02:00 18.00 /min Lobito F Weston BP Systolic 2024-03-23 13:45:00 109 mm[Hg] Step hen F Weston BP Diastolic 2024-03-23 13:45:00 76 mm[Hg] Rashid phen F Weston Weight Measured 2024-03-23 13:45:00 222.80 pounds Lobito F Weston Height Measured 2024-03-23 13:45:00 60.24 inches Lobito F Weston Body Temperature 2024-03-23 13:45:00 98.10 degrees Lobito F Weston Heart Rate 2024-03-23 13:45:00 85.00 /min Flor en F Weston Respiratory Rate 2024-03-23 13:45:00 18.00 /min Lobito F Weston BP Systolic 2024-03-01 15:52:00 151 mm[Hg] Step hen F Weston BP Diastolic 2024-03-01 15:52:00 92 mm[Hg] Rashid phen F Weston Weight Measured 2024-03-01 15:52:00 219.40 pounds Lobito F Weston Height Measured 2024-03-01 15:52:00 60.24 inches Lobito F Weston Body Temperature 2024-03-01 15:52:00 98.10 degrees Lobito F Weston Heart Rate 2024-03-01 15:52:00 67.00 /min Flor en F Weston Respiratory Rate 2024-03-01 15:52:00 17.00 /min Lobito F Weston BP Systolic 2021-06-21 08:19:00 131 mm[Hg] Step hen F Weston BP Diastolic 2021-06-21 08:19:00 83 mm[Hg] Rashid phen F Weston Weight Measured 2021-06-21 08:19:00 207.60 pounds Lobito F Weston Height Measured 2021-06-21 08:19:00 60.24 inches Lobito F Weston Body Temperature 2021-06-21 08:19:00 98.40 degrees Lobito F Weston Heart Rate 2021-06-21 08:19:00 78.00 /min Flor en F Weston Respiratory Rate 2021-06-21 08:19:00 Lobito F Weston BP Systolic 2020-09-27 14:57:00 115 mm[Hg] Step hen F Weston BP Diastolic 2020-09-27 14:57:00 79 mm[Hg] Rashid phen F Weston Weight Measured 2020-09-27 14:57:00 212.40 pounds Lobito F Weston Height Measured 2020-09-27 14:57:00 60.24 inches Lobito F Weston Body Temperature 2020-09-27 14:57:00 98.00 degrees Lobito F Weston Heart Rate 2020-09-27 14:57:00 79.00 /min Flor en F Weston Respiratory Rate 2020-09-27 14:57:00 17.00 /min Lobito F Weston BP Systolic 2020-06-21 09:29:00 138 mm[Hg] Step hen F Weston BP Diastolic 2020-06-21 09:29:00 88 mm[Hg] Rashid phen F Weston Weight Measured 2020-06-21 09:29:00 214.60 pounds Lobito F Weston Height Measured 2020-06-21 09:29:00 60.24 inches Lobito F Weston Body Temperature 2020-06-21 09:29:00 98.70 degrees Lobito Ontiveros Heart Rate 2020-06-21 09:29:00 85.00 /min Flor en F Weston Respiratory Rate 2020-06-21 09:29:00 18.00 /min Lobito Ontiveros BP Systolic 2020-02-09 17:37:00 128 mm[Hg] Step hen F Weston BP Diastolic 2020-02-09 17:37:00 85 mm[Hg] Rashid Ontiveros Weight Measured 2020-02-09 17:37:00 222.40 pounds Lobito Ontiveros Height Measured 2020-02-09 17:37:00 60.24 inches Lobito Ontiveros Body Temperature 2020-02-09 17:37:00 98.00 degrees Lobito Ontiveros Heart Rate 2020-02-09 17:37:00 75.00 /min Flor en F Weston Respiratory Rate 2020-02-09 17:37:00 16.00 /min Lobito Ontiveros Procedures Procedure Date / Time Performed Performing Clinician Source HIGH RISK HPV-THIN PREP 2023-05-05 20:24:00 Ene Hung [facility] PAP SMEAR-LIQUID BASED-CP 2023-05-05 20:24:00 Ene Hung [facility] THYROID STIMULATING HORMONE 2023-05-05 20:07:00 Ene Hung [facility] LIPID PANEL ([id number])(TOTAL CHOLESTEROL, TRIGLYCERIDES, HDL) 2023-05-05 20:07:00 Ene Hung [facility] CBC WITH DIFF 2023-05-05 20:07:00 Ene Hung [facility] GLYCOSYLATED HEMOGLOBIN (A1C) 2023-05-05 20:07:00 Ene Hung [facility] "RWSP DAMIAN ONLY" FLU VACC(), 6+ MONTHS, IM, QUAD (FLUZONE/FLULAVAL/FLUAR IX) 2023-05-05 19:28:08 Ene Hung [facility] CONSENT/REFUSAL FOR DIAGNOSIS AND TREATMENT 2023-05-05 18:45:25 Doctor Unassigned, [place] [facility] Encounters Start Date/Time End Date/Time Encounter Type Admission Type Attending [facility] Care Department Encounter ID Source 2024-07-11 14:00:00 2024-07-11 14:00:00 Outpatient LACIE KHAN [facility] [id number] [facility] 2024-07-07 00:00:00 2024-07-07 00:00:00 Outpatient Visit SFA [id number] Lobito Ontiveros 2024-06-24 09:13:01 2024-06-24 09:13:01 Outpatient SFA [facility] 123 Lobito Ontiveros 2024-06-23 10:34:21 2024-06-23 10:34:21 Outpatient SFA [facility] 122 Lobito Ontiveros 2024-06-23 00:00:00 2024-06-23 00:00:00 Outpatient Visit [facility] [id number] Lobito Ontiveros 2024-06-08 10:59:49 2024-06-08 10:59:49 Outpatient SFA [facility] [id number] Lobito Ontiveros 2024-06-08 00:00:00 2024-06-08 00:00:00 Outpatient Visit SFA [id number] Lobito Ontiveros 2024-04-15 13:30:00 2024-04-15 13:30:00 Outpatient LIANNE AYALA [id number] [facility] 2024-03-23 13:30:54 2024-03-23 13:30:54 Outpatient SFA [facility] 1023 Lobito Ontiveros 2024-03-09 10:00:00 2024-03-09 10:00:00 Outpatient RUTH RODRIGUEZ [id number] [facility] 2024-03-01 15:38:26 2024-03-01 15:38:26 Outpatient SFA [facility] [id number] Lobito Ontiveros 2024-03-01 00:00:00 2024-03-01 00:00:00 Outpatient Visit [facility] [id number] Lobito Ontiveros 2024-02-24 16:00:00 2024-02-24 16:00:00 Outpatient JUAN CARLOS TORRES [id number] [facility] 2024-02-21 16:24:00 2024-02-21 16:32:00 Emergency X MAIDA LAY SANDRA [facility] ERT [id number] [facility] 2024-02-21 16:24:00 2024-02-21 16:32:00 Emergency Maida Lay [facility] [id number] 350.1.13.10 4.2.7.2.686 [id number] [facility] 2024-02-05 11:00:00 2024-02-05 11:00:00 Outpatient JUAN CARLOS TORRES [id number] [facility] 2024-01-29 00:00:00 2024-01-29 00:00:00 Outpatient JUAN CARLOS TORRES [id number] [facility] 2024-01-22 00:00:00 2024-01-22 00:00:00 Outpatient JUAN CARLOS TORRES [id number] [facility] 2024-01-05 00:00:00 2024-01-05 00:00:00 Outpatient [facility]ACIN[facility] BRAN [id number] [facility] 2023-12-31 15:00:00 2023-12-31 15:00:00 Outpatient JUAN CARLOS TORRES [id number] [facility] 2023-12-26 00:00:00 2023-12-26 00:00:00 Outpatient RYAN SAAVEDRA [id number] [facility] 2023-12-18 00:00:00 2023-12-18 00:00:00 Outpatient [facility]OS [facility]ORRES [id number] [facility] 2023-12-18 00:00:00 2023-12-18 00:00:00 Outpatient JUAN CARLOS TORRES [id number] [facility] 2023-12-02 00:00:00 2023-12-02 00:00:00 Outpatient ARVIND SAAVEDRAZarina JORDAN [id number] [facility] 2023-11-18 14:00:00 2023-11-18 14:00:00 Outpatient RAYO SEARS [id number] [facility] 2023-11-17 00:00:00 2023-11-17 00:00:00 Outpatient KERI RYAN JORDAN [id number] [facility] 2023-11-12 14:45:00 2023-11-12 14:45:00 Outpatient LABAnna SUSAN JORDAN [id number] [facility] 2023-11-12 14:00:00 2023-11-12 14:00:00 Outpatient KERI RYAN SUSAN JORDAN [id number] [facility] 2023-11-10 13:00:00 2023-11-10 13:00:00 Outpatient JESSIKA SAHU [id number] [facility] 2023-11-05 10:15:00 2023-11-05 10:15:00 Outpatient LABAnna SUSAN JORDAN [id number] [facility] 2023-11-05 09:30:00 2023-11-05 09:30:00 Outpatient JUAN CARLOS TORRES [id number] [facility] 2023-11-05 00:00:00 2023-11-05 00:00:00 Outpatient SUSAN JORDAN [id number] [facility] 2023-11-04 15:00:00 2023-11-04 15:00:00 Outpatient SUSAN JORDAN [id number] [facility] 2023-10-30 08:30:00 2023-10-30 08:30:00 Outpatient RAYO SEARS [id number] [facility] 2023-10-27 11:30:00 2023-10-27 11:30:00 Outpatient JUAN CARLOS TORRES SUSAN [id number] [facility] 2023-10-22 00:00:00 2023-10-22 00:00:00 Outpatient CHUNG YOUNG SUSAN SUSAN [id number] [facility] 2023-10-19 00:00:00 2023-10-19 00:00:00 Outpatient JUAN CARLOS TORRES SUSAN [id number] [facility] 2023-10-18 00:00:00 2023-10-18 00:00:00 Outpatient JUAN CARLOS TORRES SUSAN [id number] [facility] 2023-10-15 00:00:00 2023-10-15 00:00:00 Outpatient JUAN CARLOS TORRES SUSAN SUSAN [id number] [facility] 2023-10-02 14:00:00 2023-10-02 14:00:00 Outpatient RAYO SEARS [id number] [facility] 2023-10-02 12:40:00 2023-10-02 12:40:00 Outpatient SUSAN JORDAN [id number] [facility] 2023-10-02 09:00:00 2023-10-02 09:00:00 Outpatient JUAN CARLOS TORRES SUSAN SUSAN [id number] [facility] 2023-09-28 00:00:00 2023-09-28 00:00:00 Outpatient JUAN CARLOS TORRES SUSAN JORDAN [id number] [facility] 2023-09-24 00:00:00 2023-09-24 00:00:00 Outpatient JUAN CARLOS TORRES SUSAN JORDAN [id number] [facility] 2023-09-22 00:00:00 2023-09-22 00:00:00 Outpatient JUAN CARLOS TORRES SUSAN JORDAN [id number] [facility] 2023-09-22 00:00:00 2023-09-22 00:00:00 Outpatient JUAN CARLOS TORRES SUSAN JORDAN [id number] [facility] 2023-09-22 00:00:00 2023-09-22 00:00:00 Outpatient MARY CARDENAS [id number] [facility] 2023-09-15 00:00:00 2023-09-15 00:00:00 Outpatient JUAN CARLOS TORRES SUSAN [id number] [facility] 2023-09-11 00:00:00 2023-09-11 00:00:00 Outpatient JUAN CARLOS TORRES SUSAN [id number] [facility] 2023-09-04 11:00:00 2023-09-04 11:00:00 Outpatient JUAN CARLOS TORRES SUSAN [id number] [facility] 2023-09-01 14:15:00 2023-09-01 14:15:00 Outpatient LAB90 SUSAN JORDAN [id number] [facility] 2023-09-01 13:30:00 2023-09-01 13:30:00 Outpatient JUAN CARLOS TORRESSARTHAK JORDAN [id number] [facility] 2023-08-29 00:00:00 2023-08-29 00:00:00 Outpatient JUAN CARLOS TORRES SUSAN [id number] [facility] 2023-08-19 00:00:00 2023-08-19 00:00:00 Outpatient JUAN CARLOS TORRESSARTHAK JORDAN [id number] [facility] 2023-08-19 00:00:00 2023-08-19 00:00:00 Outpatient JUAN CARLOS TORRESSARTHAK JORDAN [id number] [facility] 2023-08-19 00:00:00 2023-08-19 00:00:00 Outpatient JUAN CARLOS TORRES SUSAN [id number] [facility] 2023-08-14 08:10:00 2023-08-14 08:10:00 Outpatient LAB90 SUSAN JORDAN [id number] [facility] 2023-08-07 14:00:00 2023-08-07 14:00:00 Outpatient JUAN CARLOS TORRES SUSAN JORDAN [id number] [facility] 2023-07-22 07:10:06 2023-07-22 23:59:00 Outpatient ENE CHEUNG [facility] [id number] [facility] 2023-07-22 07:10:06 2023-07-22 23:59:00 Hospital Encounter Ene Hung [facility] 1.2840.114 350.1.13.10 4.2.7.2.686 [id number] [facility] 2023-05-22 11:30:00 2023-05-22 11:30:00 Outpatient JUAN CARLOS TORRES [id number] Susan [facility] 2023-05-06 00:00:00 2023-05-06 00:00:00 Telephone Ene Hung [facility] 1.2.840.114 350.1.13.10 4.2.7.2.686 [id number] [facility] 2023-05-06 00:00:00 2023-05-06 00:00:00 Telephone Ene Hung [facility] [employer] [place] [facility] & CHILD [facility] 1.2.840.114 350.1.13.10 4.2.7.2.686 [id number] [facility] 2023-05-06 00:00:00 2023-05-06 00:00:00 Patient Secure Msg Doctor Unassigned, [place] [facility] [employer] [place] [facility] & CHILD [facility] 1.2.840.114 350.1.13.10 4.2.7.2.686 [id number] [facility] 2023-05-05 14:30:00 2023-05-05 14:30:00 Office Visit Ene Hung [facility] [employer] [place] [facility] & CHILD [facility] 1.2.840.114 350.1.13.10 4.2.7.2.686 [id number] [facility] 2023-05-05 14:30:00 2023-05-05 14:12:18 Outpatient R ENE HUNG [facility] [id number] [facility] 2023-05-05 00:00:00 2023-05-05 00:00:00 Orders Only Doctor Unassigned, [place] [facility] 1.2.840.114 350.1.13.10 4.2.7.2.686 [id number] [facility] 2023-05-05 00:00:00 2023-05-05 00:00:00 Letter (Out) Ene Hung [facility] [employer] [facility] 1.2.840.114 350.1.13.10 4.2.7.2.686 [id number] [facility] 2022-03-13 11:16:00 2022-03-13 13:37:00 Emergency MARY GARCIA [facility] [id number] [facility] 2022-03-13 11:16:00 2022-03-13 13:37:00 Emergency Mary Herr [facility] 1.2.840.114 350.1.13.10 4.2.7.2.686 [id number] [facility] 2021-12-13 10:30:00 2021-12-13 11:10:07 Laboratory Only Only, [facility] Test Unknown, Attending Guillermo Day [facility] 1.2.840.114 350.1.13.10 4.2.7.2.686 [id number] [facility] 2021-12-13 10:30:00 2021-12-13 11:10:07 Outpatient GUILLERMO AGUIRRE [facility] [id number] [facility] 2021-12-13 10:30:00 2021-12-13 10:30:00 Outpatient GUILLERMO AGUIRRE [facility] [id number] [facility] 2021-12-08 00:00:00 2021-12-08 00:00:00 Patient Secure Msg Doctor Unassigned, [place] [facility] 1.2.840.114 350.1.13.10 4.2.7.2.686 [id number] [facility] 2021-12-07 00:00:00 2021-12-07 00:00:00 Letter (Out) Linda Alfaro [facility] 1.2.840.114 350.1.13.10 4.2.7.2.686 [id number] [facility] 2021-12-06 12:30:00 2021-12-06 13:55:38 Urgent Care Fauiza Mercado Unknown, Attending [facility] 1.2.840.114 350.1.13.10 4.2.7.2.686 [id number] [facility] 2021-12-06 12:30:00 2021-12-06 13:55:38 Outpatient R FAUZIA MERCADO [facility] [id number] [facility] 2021-12-06 12:30:00 2021-12-06 12:30:00 Outpatient R FAUZIA MERCADO [facility] [id number] [facility] 2021-12-03 11:54:00 2021-12-03 14:38:00 Emergency X DEVONTE MICHAEL [facility] ERT [id number] [facility] 2021-12-03 11:54:00 2021-12-03 14:38:00 Emergency X DEVONTE MICHAEL [facility] ERT [id number] [facility] 2021-12-03 11:54:00 2021-12-03 14:38:00 Emergency X DEVONTE MICHAEL [facility] ERT [id number] [facility] 2021-12-03 11:54:00 2021-12-03 14:38:00 Emergency MaslaDevonte rand [facility] ([facility] 1.2.840.114 350.1.13.10 4.2.7.2.686 [id number] [facility] 2021-12-02 10:04:00 2021-12-02 11:31:00 [facility] [id number] [facility] 2021-12-02 10:04:00 2021-12-02 11:31:00 [facility] [id number] [facility] 2021-12-02 10:04:00 2021-12-02 11:31:00 Emergency X [facility] ERT [id number] [facility] 2021-12-02 10:04:00 2021-12-02 11:31:00 Emergency Evonne formerly [facility] ([facility]) 1.2.840.114 350.1.13.10 4.2.7.2.686 [id number] [facility] 2021-10-13 10:34:00 2021-10-13 13:27:00 Emergency X ALEXANDR GARCIA [facility] ERT [id number] [facility] 2021-10-13 10:34:00 2021-10-13 13:27:00 Emergency Alexandr Garcia [facility] ([facility] 1.2.840.114 350.1.13.10 4.2.7.2.686 [id number] [facility] Results Test Description Test Time Test Comments Results Result Co mments Source COMPREHENSIVE METABOLIC [id number] 03:43:52* Test Item Value Reference Range Interpretation Comme nts GLUCOSE (test code = 2217) 95 MG/DL 70-99 BUN (test code = 2208) 14 MG/DL 6-20 CREATININE (test code = 2214) 0.79 MG/DL 0.60-1.30 eGFR (2020 CKD-EPI) (test co de = 98874) 91 ML/MIN/1.73 >60 CALC BUN/CREAT (test code = 223) 18 RATIO 6-28 SODIUM (test code = 223) 143 MEQ/L 133-146 POTASSIUM (test code = 2228) 4.5 MEQ/L 3.5-5.4 CHLORIDE (test code = 2215) 108 MEQ/L 95-107 H CARBON DIOXIDE (test code = 2206) 23 MEQ/L 19-31 CALCIUM (test code = 220) 9.0 MG/DL 8.5-10.5 PROTEIN, TOTAL (test code = 222) 7.2 G/DL 6.1-8.3 ALBUMIN (test code = 2200) 4.3 G/DL 3.5-5.2 CALC GLOBULIN (test code = 2240) 2.9 G/DL 1.9-3.7 CALC A/G RATIO (test code = 223) 1.5 RATIO 1.0-2.6 BILIRUBIN, TOTAL (test code = 2206) 0.3 MG/DL <=1.2 ALKALINE PHOSPHATASE (test code = 4) 95 U/L 40-128 AST (test code = 2218) 20 U/L 9-40 ALT (test code = 2219) 16 U/L 5-40 LIPID [id number] 03:43:52* Test Item Value Reference Range Interpretation Comme nts CHOLESTEROL (test code = 2210) 128 MG/DL <200 TRIGLYCERIDES (test code = 2232) 138 MG/DL <150 HDL CHOLESTEROL (test code = 0) 35 MG/DL >39 L CALC LDL CHOL (test code = 2236) 71 MG/DL <100 NOTE: CALCULATED LDL IS BASED ON FAUSTINO-MCHUGH METHOD WHICHINCLUDES ADJUSTABLE TRIGLYCERIDE:VLDL CHOLESTEROL RATIO.THIS FACTOR VARIES BY MEASURED TRIGLYCERIDE AND NON-HDLCHOLESTEROL CONCENTRATIONS WITH INCREASED CALCULATED LDL SEENIN HIGHER TRIGLYCERIDE OR LOWER NON-HDL SPECIMENS. FOR MOREINFORMATION, SEE CLIENT ANNOUNCEMENT AT [email or web address] RISK RATIO LDL/HDL (test code = 223) 2.03 RATIO <3.22 COMPREHENSIVE METABOLIC [id number] 00:00:00* Test Item Value Reference Range Interpretation Comme nts GLUCOSE (test code = 221) 95 MG/DL BUN (test code = 220) 14 MG/DL CREATININE (test code = 2214) 0.79 MG/DL eGFR (2020 CKD-EPI) (test co de = 26081) 91 ML/MIN/1.73 CALC BUN/CREAT (test code = 2235) 18 RATIO SODIUM (test code = 2231) 143 MEQ/L POTASSIUM (test code = 2228) 4.5 MEQ/L CHLORIDE (test code = 2215) 108 MEQ/L CARBON DIOXIDE (test code = 2206) 23 MEQ/L CALCIUM (test code = 2209) 9.0 MG/DL PROTEIN, TOTAL (test code = 2229) 7.2 G/DL ALBUMIN (test code = 2201) 4.3 G/DL CALC GLOBULIN (test code = 2240) 2.9 G/DL CALC A/G RATIO (test code = 2234) 1.5 RATIO BILIRUBIN, TOTAL (test code = 2207) 0.3 MG/DL ALKALINE PHOSPHATASE (test code = 2204) 95 U/L AST (test code = 2218) 20 U/L ALT (test code = 2219) 16 U/L Lobito OntiverosLIPID [id number] 00:00:00* Test Item Value Reference Range Interpretation Comme nts CHOLESTEROL (test code = 2210) 128 MG/DL TRIGLYCERIDES (test code = 2232) 138 MG/DL HDL CHOLESTEROL (test code = 2220) 35 MG/DL CALC LDL CHOL (test code = 2237) 71 MG/DL RISK RATIO LDL/HDL (test cod e = 2238) 2.03 RATIO Lobito OntiverosHEMOGLOBIN [id number] 00:00:00* Test Item Value Reference Range Interpretation Comme nts HEMOGLOBIN A1c (test code = 98604) 5.9 % Lobito OntiverosTSH, THIRD [id number] 06:59:55* Test Item Value Reference Range Interpretation Comme nts TSH, THIRD GENERATION (test code = 2821) 0.857 UIU/ML 0.400-4.100 COMPREHENSIVE METABOLIC [id number] 04:58:59* Test Item Value Reference Range Interpretation Comme nts GLUCOSE (test code = 2217) 98 MG/DL 70-99 BUN (test code = 8) 10 MG/DL 6-20 CREATININE (test code = 2214) 0.90 MG/DL 0.60-1.30 eGFR (2020 CKD-EPI) (test co de = 46757) 78 ML/MIN/1.73 >60 CALC BUN/CREAT (test code = 2234) 11 RATIO 6-28 SODIUM (test code = 223) 141 MEQ/L 133-146 POTASSIUM (test code = 2227) 4.3 MEQ/L 3.5-5.4 CHLORIDE (test code = 2214) 102 MEQ/L 95-107 CARBON DIOXIDE (test code = 6) 28 MEQ/L 19-31 CALCIUM (test code = 2208) 9.5 MG/DL 8.5-10.5 PROTEIN, TOTAL (test code = 2228) 7.7 G/DL 6.1-8.3 ALBUMIN (test code = 2200) 4.4 G/DL 3.5-5.2 CALC GLOBULIN (test code = 2239) 3.3 G/DL 1.9-3.7 CALC A/G RATIO (test code = 2233) 1.3 RATIO 1.0-2.6 BILIRUBIN, TOTAL (test code = 2206) <0.2 MG/DL <=1.2 ALKALINE PHOSPHATASE (test code = 2203) 114 U/L 40-125 AST (test code = 2217) 18 U/L 9-40 ALT (test code = 2219) 25 U/L 5-40 LIPID [id number] 04:58:59* Test Item Value Reference Range Interpretation Comme nts CHOLESTEROL (test code = 2210) 279 MG/DL <200 H TRIGLYCERIDES (test code = 2232) 306 MG/DL <150 H HDL CHOLESTEROL (test code = 2219) 38 MG/DL >39 L CALC LDL CHOL (test code = 223) 189 MG/DL <100 H NOTE: CALCULATED LDL IS BASED ON FAUSTINO-MCHUGH METHOD WHICHINCLUDES ADJUSTABLE TRIGLYCERIDE:VLDL CHOLESTEROL RATIO.THIS FACTOR VARIES BY MEASURED TRIGLYCERIDE AND NON-HDLCHOLESTEROL CONCENTRATIONS WITH INCREASED CALCULATED LDL SEENIN HIGHER TRIGLYCERIDE OR LOWER NON-HDL SPECIMENS. FOR MOREINFORMATION, SEE CLIENT ANNOUNCEMENT AT [email or web address] RISK RATIO LDL/HDL (test code = 2238) 4.97 RATIO <3.22 H HEMOGLOBIN [id number] 02:50:38* Test Item Value Reference Range Interpretation Comme nts HEMOGLOBIN A1c (test code = 67944) 6.2 % 4.2-5.6 H [employer] GUIDELINES FOR HGB A1C: PREDIABETES/INCREASED RISK . . . . . . . 5.7-6.4% DIAGNOSIS OF DIABETES . . . . . . . . . >=6.5% WITH CONFIRMATION OR APPROPRIATE SYMPTOMS NOTE: ASSAY MAY BE AFFECTED BY HEMOGLOBINOPATHIES (SICKLE CELL ANEMIA, S-C DISEASE, OTHERS) OR ARTIFICIALLY LOWERED BY DECREASED RED CELL SURVIVAL (HEMOLYTIC ANEMIAS, BLOOD LOSS, ETC.). CONSIDER ALTERNATE TESTING OR LABORATORY CONSULTATION. UNLESS OTHERWISE INDICATED, ALL TESTING PERFORMED AT CLINICAL PATHOLOGY [employer] [address] [place] [address] CUSTOMER ENGAGEMENT MANAGER: ISAI DALLAS M.D. IA NUMBER [id number] [facility] [place]. [id number] CBC W/AUTO DIFF WITH [id number] 02:47:47* Test Item Value Reference Range Interpretation Comme nts WBC (test code = 1001) 18.3 K/UL 3.5-11.0 H RBC (test code = 1002) 5.27 M/UL 3.80-5.40 HEMOGLOBIN (test code = 1003) 13.1 G/DL 11.5-15.5 HEMATOCRIT (test code = 1004) 42.5 % 34.0-45.0 MCV (test code = 1005) 80.6 fL 80.0-99.0 MCH (test code = 1006) 24.9 PG 25.0-33.0 L MCHC (test code = 1007) 30.8 G/DL 31.0-36.0 L RDW (test code = 1038) 15.9 % 11.5-15.0 H NEUTROPHILS (test code = 1008) 63.5 % LYMPHOCYTES (test code = 1010) 25.1 % MONOCYTES (test code = 1011) 6.4 % EOSINOPHILS (test code = 1012) 0.7 % BASOPHILS (test code = 1013) 0.5 % IMMATURE GRANULOCYTES (test code = 1036) 3.8 % NUCLEATED RBCS (test code = 1065) 0.0 /100 WBC'S See_Comment [Automated [employer]] The system which generated this result transmitted reference range: 0.0. The reference range was not used to interpret this result as normal/abnormal. PLATELET COUNT (test code = 1015) 542 K/UL 130-400 H ABSOLUTE NEUTROPHILS (test code = 1066) 11.62 K/UL 1.50-7.50 H ABSOLUTE LYMPHOCYTES (test code = 1067) 4.58 K/UL 1.00-4.00 H ABSOLUTE MONOCYTES (test code = 1068) 1.17 K/UL 0.20-1.00 H ABSOLUTE EOSINOPHILS (test code = 1040) 0.13 K/UL 0.00-0.50 ABSOLUTE BASOPHILS (test code = 1069) 0.09 K/UL 0.00-0.20 ABS IMMATURE GRANULOCYTES (test code = 1020) 0.69 K/UL 0.00-0.10 H ABS NUCLEATED RBCS (test code = 34607) 0.00 K/UL 0.00-0.11 COMPREHENSIVE METABOLIC [id number] 00:00:00* Test Item Value Reference Range Interpretation Comme nts GLUCOSE (test code = 2217) 98 MG/DL BUN (test code = 2208) 10 MG/DL CREATININE (test code = 2214) 0.90 MG/DL eGFR (2020 CKD-EPI) (test co de = 54324) 78 ML/MIN/1.73 CALC BUN/CREAT (test code = 2235) 11 RATIO SODIUM (test code = 2231) 141 MEQ/L POTASSIUM (test code = 2228) 4.3 MEQ/L CHLORIDE (test code = 2215) 102 MEQ/L CARBON DIOXIDE (test code = 2206) 28 MEQ/L CALCIUM (test code = 2209) 9.5 MG/DL PROTEIN, TOTAL (test code = 2229) 7.7 G/DL ALBUMIN (test code = 2201) 4.4 G/DL CALC GLOBULIN (test code = 2240) 3.3 G/DL CALC A/G RATIO (test code = 2234) 1.3 RATIO BILIRUBIN, TOTAL (test code = 2207) <0.2 MG/DL ALKALINE PHOSPHATASE (test code = 2204) 114 U/L AST (test code = 2218) 18 U/L ALT (test code = 2219) 25 U/L Lobito F AustinLIPID [id number] 00:00:00* Test Item Value Reference Range Interpretation Comme nts CHOLESTEROL (test code = 2210) 279 MG/DL TRIGLYCERIDES (test code = 2232) 306 MG/DL HDL CHOLESTEROL (test code = 2220) 38 MG/DL CALC LDL CHOL (test code = 2237) 189 MG/DL RISK RATIO LDL/HDL (test cod e = 2238) 4.97 RATIO Lobito OntiverosCBC W/AUTO [id number] 00:00:00* Test Item Value Reference Range Interpretation Comme nts WBC (test code = 1001) 18.3 K/UL RBC (test code = 1002) 5.27 M/UL HEMOGLOBIN (test code = 1003) 13.1 G/DL HEMATOCRIT (test code = 1004) 42.5 % MCV (test code = 1005) 80.6 fL MCH (test code = 1006) 24.9 PG MCHC (test code = 1007) 30.8 G/DL RDW (test code = 1038) 15.9 % NEUTROPHILS (test code = 1008) 63.5 % LYMPHOCYTES (test code = 1010) 25.1 % MONOCYTES (test code = 1011) 6.4 % EOSINOPHILS (test code = 1012) 0.7 % BASOPHILS (test code = 1013) 0.5 % IMMATURE GRANULOCYTES (test code = 1036) 3.8 % NUCLEATED RBCS (test code = 1065) 0.0 /100WBC'S PLATELET COUNT (test code = 1015) 542 K/UL ABSOLUTE NEUTROPHILS (test c ode = 1066) 11.62 K/UL ABSOLUTE LYMPHOCYTES (test c ode = 1067) 4.58 K/UL ABSOLUTE MONOCYTES (test cod e = 1068) 1.17 K/UL ABSOLUTE EOSINOPHILS (test c ode = 1040) 0.13 K/UL ABSOLUTE BASOPHILS (test cod e = 1069) 0.09 K/UL ABS IMMATURE GRANULOCYTES (t est code = 1020) 0.69 K/UL ABS NUCLEATED RBCS (test cod e = 47211) 0.00 K/UL Lobito OntiverosTSH, THIRD [id number] 00:00:00* Test Item Value Reference Range Interpretation Comme nts TSH, THIRD GENERATION (test code = 2821) 0.857 UIU/ML Lobito OntiverosHEMOGLOBIN [id number] 00:00:00* Test Item Value Reference Range Interpretation Comme nts HEMOGLOBIN A1c (test code = 25238) 6.2 % Lobito OntiverosCOMPREHENSIVE METABOLIC [id number] 00:00:00* Test Item Value Reference Range Interpretation Comme nts GLUCOSE (test code = 2217) 98 MG/DL BUN (test code = 2208) 10 MG/DL CREATININE (test code = 2214) 0.90 MG/DL eGFR (2020 CKD-EPI) (test co de = 99440) 78 ML/MIN/1.73 CALC BUN/CREAT (test code = 2235) 11 RATIO SODIUM (test code = 2231) 141 MEQ/L POTASSIUM (test code = 2228) 4.3 MEQ/L CHLORIDE (test code = 2215) 102 MEQ/L CARBON DIOXIDE (test code = 2206) 28 MEQ/L CALCIUM (test code = 2209) 9.5 MG/DL PROTEIN, TOTAL (test code = 2229) 7.7 G/DL ALBUMIN (test code = 2201) 4.4 G/DL CALC GLOBULIN (test code = 2240) 3.3 G/DL CALC A/G RATIO (test code = 2234) 1.3 RATIO BILIRUBIN, TOTAL (test code = 2207) <0.2 MG/DL ALKALINE PHOSPHATASE (test code = 2204) 114 U/L AST (test code = 2218) 18 U/L ALT (test code = 2219) 25 U/L Lobito OntiverosLIPID [id number] 00:00:00* Test Item Value Reference Range Interpretation Comme nts CHOLESTEROL (test code = 2210) 279 MG/DL TRIGLYCERIDES (test code = 2232) 306 MG/DL HDL CHOLESTEROL (test code = 2220) 38 MG/DL CALC LDL CHOL (test code = 2237) 189 MG/DL RISK RATIO LDL/HDL (test cod e = 2238) 4.97 RATIO Lobito OntiverosCBC W/AUTO [id number] 00:00:00* Test Item Value Reference Range Interpretation Comme nts WBC (test code = 1001) 18.3 K/UL RBC (test code = 1002) 5.27 M/UL HEMOGLOBIN (test code = 1003) 13.1 G/DL HEMATOCRIT (test code = 1004) 42.5 % MCV (test code = 1005) 80.6 fL MCH (test code = 1006) 24.9 PG MCHC (test code = 1007) 30.8 G/DL RDW (test code = 1038) 15.9 % NEUTROPHILS (test code = 1008) 63.5 % LYMPHOCYTES (test code = 1010) 25.1 % MONOCYTES (test code = 1011) 6.4 % EOSINOPHILS (test code = 1012) 0.7 % BASOPHILS (test code = 1013) 0.5 % IMMATURE GRANULOCYTES (test code = 1036) 3.8 % NUCLEATED RBCS (test code = 1065) 0.0 /100WBC'S PLATELET COUNT (test code = 1015) 542 K/UL ABSOLUTE NEUTROPHILS (test c ode = 1066) 11.62 K/UL ABSOLUTE LYMPHOCYTES (test c ode = 1067) 4.58 K/UL ABSOLUTE MONOCYTES (test cod e = 1068) 1.17 K/UL ABSOLUTE EOSINOPHILS (test c ode = 1040) 0.13 K/UL ABSOLUTE BASOPHILS (test cod e = 1069) 0.09 K/UL ABS IMMATURE GRANULOCYTES (t est code = 1020) 0.69 K/UL ABS NUCLEATED RBCS (test cod e = 02286) 0.00 K/UL Lobito OntiverosTSH, THIRD [id number] 00:00:00* Test Item Value Reference Range Interpretation Comme nts TSH, THIRD GENERATION (test code = 2821) 0.857 UIU/ML Lobito OntiverosHEMOGLOBIN [id number] 00:00:00* Test Item Value Reference Range Interpretation Comme nts HEMOGLOBIN A1c (test code = 92361) 6.2 % Lobito OntiverosCOMPREHENSIVE METABOLIC [id number] 00:00:00* Test Item Value Reference Range Interpretation Comme nts GLUCOSE (test code = 2217) 98 MG/DL BUN (test code = 2208) 10 MG/DL CREATININE (test code = 2214) 0.90 MG/DL eGFR (2020 CKD-EPI) (test co de = 16748) 78 ML/MIN/1.73 CALC BUN/CREAT (test code = 2235) 11 RATIO SODIUM (test code = 2231) 141 MEQ/L POTASSIUM (test code = 2228) 4.3 MEQ/L CHLORIDE (test code = 2215) 102 MEQ/L CARBON DIOXIDE (test code = 2206) 28 MEQ/L CALCIUM (test code = 2209) 9.5 MG/DL PROTEIN, TOTAL (test code = 2229) 7.7 G/DL ALBUMIN (test code = 2201) 4.4 G/DL CALC GLOBULIN (test code = 2240) 3.3 G/DL CALC A/G RATIO (test code = 2234) 1.3 RATIO BILIRUBIN, TOTAL (test code = 2207) <0.2 MG/DL ALKALINE PHOSPHATASE (test code = 2204) 114 U/L AST (test code = 2218) 18 U/L ALT (test code = 2219) 25 U/L Lobito OntiverosLIPID [id number] 00:00:00* Test Item Value Reference Range Interpretation Comme nts CHOLESTEROL (test code = 2210) 279 MG/DL TRIGLYCERIDES (test code = 2232) 306 MG/DL HDL CHOLESTEROL (test code = 2220) 38 MG/DL CALC LDL CHOL (test code = 2237) 189 MG/DL RISK RATIO LDL/HDL (test cod e = 2238) 4.97 RATIO Lobito OntiverosCBC W/AUTO [id number] 00:00:00* Test Item Value Reference Range Interpretation Comme nts WBC (test code = 1001) 18.3 K/UL RBC (test code = 1002) 5.27 M/UL HEMOGLOBIN (test code = 1003) 13.1 G/DL HEMATOCRIT (test code = 1004) 42.5 % MCV (test code = 1005) 80.6 fL MCH (test code = 1006) 24.9 PG MCHC (test code = 1007) 30.8 G/DL RDW (test code = 1038) 15.9 % NEUTROPHILS (test code = 1008) 63.5 % LYMPHOCYTES (test code = 1010) 25.1 % MONOCYTES (test code = 1011) 6.4 % EOSINOPHILS (test code = 1012) 0.7 % BASOPHILS (test code = 1013) 0.5 % IMMATURE GRANULOCYTES (test code = 1036) 3.8 % NUCLEATED RBCS (test code = 1065) 0.0 /100WBC'S PLATELET COUNT (test code = 1015) 542 K/UL ABSOLUTE NEUTROPHILS (test c ode = 1066) 11.62 K/UL ABSOLUTE LYMPHOCYTES (test c ode = 1067) 4.58 K/UL ABSOLUTE MONOCYTES (test cod e = 1068) 1.17 K/UL ABSOLUTE EOSINOPHILS (test c ode = 1040) 0.13 K/UL ABSOLUTE BASOPHILS (test cod e = 1069) 0.09 K/UL ABS IMMATURE GRANULOCYTES (t est code = 1020) 0.69 K/UL ABS NUCLEATED RBCS (test cod e = 62412) 0.00 K/UL Lobito MerazH, THIRD [id number] 00:00:00* Test Item Value Reference Range Interpretation Comme nts TSH, THIRD GENERATION (test code = 2821) 0.857 UIU/ML Lobito OntiverosHEMOGLOBIN [id number] 00:00:00* Test Item Value Reference Range Interpretation Comme nts HEMOGLOBIN A1c (test code = 17272) 6.2 % Lobito OntiverosCOMPREHENSIVE METABOLIC [id number] 00:00:00* Test Item Value Reference Range Interpretation Comme nts GLUCOSE (test code = 2217) 98 MG/DL BUN (test code = 2208) 10 MG/DL CREATININE (test code = 2214) 0.90 MG/DL eGFR (2020 CKD-EPI) (test co de = 60435) 78 ML/MIN/1.73 CALC BUN/CREAT (test code = 2235) 11 RATIO SODIUM (test code = 2231) 141 MEQ/L POTASSIUM (test code = 2228) 4.3 MEQ/L CHLORIDE (test code = 2215) 102 MEQ/L CARBON DIOXIDE (test code = 2206) 28 MEQ/L CALCIUM (test code = 2209) 9.5 MG/DL PROTEIN, TOTAL (test code = 2229) 7.7 G/DL ALBUMIN (test code = 2201) 4.4 G/DL CALC GLOBULIN (test code = 2240) 3.3 G/DL CALC A/G RATIO (test code = 2234) 1.3 RATIO BILIRUBIN, TOTAL (test code = 2207) <0.2 MG/DL ALKALINE PHOSPHATASE (test code = 2204) 114 U/L AST (test code = 2218) 18 U/L ALT (test code = 2219) 25 U/L Lobito OntiverosLIPID [id number] 00:00:00* Test Item Value Reference Range Interpretation Comme nts CHOLESTEROL (test code = 2210) 279 MG/DL TRIGLYCERIDES (test code = 2232) 306 MG/DL HDL CHOLESTEROL (test code = 2220) 38 MG/DL CALC LDL CHOL (test code = 2237) 189 MG/DL RISK RATIO LDL/HDL (test cod e = 2238) 4.97 RATIO Lobito OntiverosCBC W/AUTO [id number] 00:00:00* Test Item Value Reference Range Interpretation Comme nts WBC (test code = 1001) 18.3 K/UL RBC (test code = 1002) 5.27 M/UL HEMOGLOBIN (test code = 1003) 13.1 G/DL HEMATOCRIT (test code = 1004) 42.5 % MCV (test code = 1005) 80.6 fL MCH (test code = 1006) 24.9 PG MCHC (test code = 1007) 30.8 G/DL RDW (test code = 1038) 15.9 % NEUTROPHILS (test code = 1008) 63.5 % LYMPHOCYTES (test code = 1010) 25.1 % MONOCYTES (test code = 1011) 6.4 % EOSINOPHILS (test code = 1012) 0.7 % BASOPHILS (test code = 1013) 0.5 % IMMATURE GRANULOCYTES (test code = 1036) 3.8 % NUCLEATED RBCS (test code = 1065) 0.0 /100WBC'S PLATELET COUNT (test code = 1015) 542 K/UL ABSOLUTE NEUTROPHILS (test c ode = 1066) 11.62 K/UL ABSOLUTE LYMPHOCYTES (test c ode = 1067) 4.58 K/UL ABSOLUTE MONOCYTES (test cod e = 1068) 1.17 K/UL ABSOLUTE EOSINOPHILS (test c ode = 1040) 0.13 K/UL ABSOLUTE BASOPHILS (test cod e = 1069) 0.09 K/UL ABS IMMATURE GRANULOCYTES (t est code = 1020) 0.69 K/UL ABS NUCLEATED RBCS (test cod e = 75754) 0.00 K/UL Lobito OntiverosTSH, THIRD [id number] 00:00:00* Test Item Value Reference Range Interpretation Comme nts TSH, THIRD GENERATION (test code = 2821) 0.857 UIU/ML Lobito OntiverosHEMOGLOBIN [id number] 00:00:00* Test Item Value Reference Range Interpretation Comme nts HEMOGLOBIN A1c (test code = 08487) 6.2 % Lobito OntiverosGLYCOSYLATED HEMOGLOBIN (A1C)2023-05-06 14:14:21* Test Item Value Reference Range Interpretation Comme nts HGB A1C (test code = 4548-4) 6.0 % 4.0-5.7 H ABBY (test code = ABBY) Reference RangesNormal: <5.7%Prediabetes: 5.7 - 6.4%Diabetes: > 6.5% Lab Interpretation (test code = 61314-4) [facility]2023-05-06 14:14:21* Test Item Value Reference Range Interpretation Comme nts HGB A1C (test code = 4548-4) 6.0 % 4.0-5.7 H ABBY (test code = ABBY) Reference RangesNormal: <5.7%Prediabetes: 5.7 - 6.4%Diabetes: > 6.5% Lab Interpretation (test code = 89934-3) [facility]normal [facility] CenterTHY[facility] STIMULATING [id number] 06:17:06 * Test Item Value Reference Range Interpretation Comme nts TSH (test code = 9006512855) 1.65 See_Comment [Automated messa ge] The system which generated this result transmitted reference range: 0.45 - 4.70 mIU/L. The reference range was not used to interpret this result as normal/abnormal. Lab Interpretation (test code = 96474-0) Normal [facility] [id number] 06:17:06 * Test Item Value Reference Range Interpretation Comme nts TSH (test code = 0217289409) 1.65 See_Comment [Automated messa ge] The system which generated this result transmitted reference range: 0.45 - 4.70 mIU/L. The reference range was not used to interpret this result as normal/abnormal. Lab Interpretation (test code = 32502-9) Normal [facility] CenterCB WITH [id number] 05:58:45* Test Item Value Reference Range Interpretation [...] g/dL 31.6-35.1 L RDW-SD (test code = 17196-8) 47.2 fL 39.0-49.9 RDW-CV (test code = 788-0) 16.6 % 12.0-15.5 H PLT (test code = 777-3) 339 See_Comment [Automated messa ge] The system which generated this result transmitted reference range: 166 - 358 10*3/?L. The reference range was not used to interpret this result as normal/abnormal. MPV (test code = 68050-2) 10.9 fL 9.5-12.9 NRBC/100 WBC (test code = 0155034305) 0.0 See_Comment [Automated [employer] ssage] The system which generated this result transmitted reference range: 0.0 - 10.0 /100 WBCs. The reference range was not used to interpret this result as normal/abnormal. NRBC x10^3 (test code = 2823827617) See_Comment [Automated messa ge] The system which generated this result transmitted reference range: 10*3/?L. The reference range was not used to interpret this result as normal/abnormal. GRAN MAT (NEUT) % (test code = 770-8) 65.8 % IMM GRAN % (test code = 4791824018) 0.20 % LYMPH % (test code = 736-9) 24.1 % MONO % (test code = 5905-5) 6.4 % EOS % (test code = 713-8) 2.9 % BASO % (test code = 706-2) 0.6 % GRAN MAT x10^3(ANC) (test code = 8262447818) 7.14 10*3/uL 1.88-7.09 H IMM GRAN x10^3 (test code = 7808884884) 0.00-0.06 LYMPH x10^3 (test code = 731-0) 2.61 10*3/uL 1.32-3.29 MONO x10^3 (test code = 742-7) 0.69 10*3/uL 0.33-0.92 EOS x10^3 (test code = 711-2) 0.31 10*3/uL 0.03-0.39 BASO x10^3 (test code = 704-7) 0.06 10*3/uL 0.01-0.07 Lab Interpretation (test code = 64067-0) Abnormal [facility] WITH [id number] 05:58:45* Test Item Value Reference Range Interpretation Comme nts WBC (test code = 6690-2) 10.83 See_Comment [Automated [employer]] The system which generated this result transmitted reference range: 4.30 - 11.10 10*3/?L. The reference range was not used to interpret this result as normal/abnormal. RBC (test code = 789-8) 4.79 See_Comment [Automated [employer]] The system which generated this result [...] g/dL 31.6-35.1 L RDW-SD (test code = 43356-7) 47.2 fL 39.0-49.9 RDW-CV (test code = 788-0) 16.6 % 12.0-15.5 H PLT (test code = 777-3) 339 See_Comment [Automated messa ge] The system which generated this result transmitted reference range: 166 - 358 10*3/?L. The reference range was not used to interpret this result as normal/abnormal. MPV (test code = 29326-8) 10.9 fL 9.5-12.9 NRBC/100 WBC (test code = 2449377594) 0.0 See_Comment [Automated me ssage] The system which generated this result transmitted reference range: 0.0 - 10.0 /100 WBCs. The reference range was not used to interpret this result as normal/abnormal. NRBC x10^3 (test code = 0184070576) See_Comment [Automated messa ge] The system which generated this result transmitted reference range: 10*3/?L. The reference range was not used to interpret this result as normal/abnormal. GRAN MAT (NEUT) % (test code = 770-8) 65.8 % IMM GRAN % (test code = 5066683548) 0.20 % LYMPH % (test code = 736-9) 24.1 % MONO % (test code = 5905-5) 6.4 % EOS % (test code = 713-8) 2.9 % BASO % (test code = 706-2) 0.6 % GRAN MAT x10^3(ANC) (test code = 3290509323) 7.14 10*3/uL 1.88-7.09 H IMM GRAN x10^3 (test code = 5607526384) 0.00-0.06 LYMPH x10^3 (test code = 731-0) 2.61 10*3/uL 1.32-3.29 MONO x10^3 (test code = 742-7) 0.69 10*3/uL 0.33-0.92 EOS x10^3 (test code = 711-2) 0.31 10*3/uL 0.03-0.39 BASO x10^3 (test code = 704-7) 0.06 10*3/uL 0.01-0.07 Lab Interpretation (test code = 72733-6) Abnormal [facility] CenterLIP[facility] PANEL (77922)(TOTAL CHOLESTEROL, TRIGLYCERIDES, HDL)2023-05-06 05:43:23* Test Item Value Reference Range Interpretation Comme nts CHOL (test code = 4504949812) 224 mg/dL 120-200 H HDL (test code = 5254005442) 38 mg/dL >=50 L HDLC RATIO (test code = 9242787985) 5.9 <=4.5 H TRIG (test code = 2880247353) 254 mg/dL 30-170 H LDL CHOL (test code = 57339-9) 135 mg/dL <=160 VLDL (test code = 0480149551) 51 mg/dL 5-60 Lab Interpretation (test cod e = 56495-1) Abnormal [facility] CenterL[facility] PAN[facility] (45011)(TOTAL CHOLESTEROL, TRIGLYCERIDES, HDL)2023-05-06 05:43:23* Test Item Value Reference Range Interpretation Comme nts CHOL (test code = 1712774292) 224 mg/dL 120-200 H HDL (test code = 2830211241) 38 mg/dL >=50 L HDLC RATIO (test code = 0359546538) 5.9 <=4.5 H TRIG (test code = 6547137691) 254 mg/dL 30-170 H LDL CHOL (test code = 73746-3) 135 mg/dL <=160 VLDL (test code = 1692762933) 51 mg/dL 5-60 Lab Interpretation (test cod e = 90954-3) Abnormal [facility] CenterCOMPRE[facility]ENSIVE METABOLIC [id number] 04:15:18* Test Item Value Reference Range Interpretation Comme nts GLUCOSE (test code = 2217) 90 MG/DL 70-99 BUN (test code = 2208) 14 MG/DL 6-20 CREATININE (test code = 2214) 0.77 MG/DL 0.60-1.30 eGFR (2020 CKD-EPI) (test code = 28770) 96 ML/MIN/1.73 >60 CALC BUN/CREAT (test code = 2235) 18 RATIO 6-28 SODIUM (test code = 223) 141 MEQ/L 133-146 POTASSIUM (test code = [...] as normal/abnormal. ALKALINE PHOSPHATASE (test code = 220) 106 U/L 40-120 AST (test code = 2218) 15 U/L 9-40 ALT (test code = 2219) 12 U/L 5-40 UNLESS OTHERWISE INDICATED, ALL TESTING PERFORMED [facility] [employer] [address] [place] [address] CUSTOMER ENGAGEMENT MANAGER: REGINE FREGOSO M.D. CLIA NUMBER [id number] [facility] [place]. [id number] COMPREHENSIVE METABOLIC [id number] 00:00:00* Test Item Value Reference Range Interpretation Comme nts GLUCOSE (test code = 2217) 90 MG/DL BUN (test code = 2208) 14 MG/DL CREATININE (test code = 2214) 0.77 MG/DL eGFR (2020 CKD-EPI) (test co de = 93446) 96 ML/MIN/1.73 CALC BUN/CREAT (test code = 2235) 18 RATIO SODIUM (test code = 2231) 141 MEQ/L POTASSIUM (test code = 2228) 4.3 MEQ/L CHLORIDE (test code = 2215) 103 MEQ/L CARBON DIOXIDE (test code = 2206) 25 MEQ/L CALCIUM (test code = 2209) 9.6 MG/DL PROTEIN, TOTAL (test code = 2229) 7.6 G/DL ALBUMIN (test code = 2201) 4.4 G/DL CALC GLOBULIN (test code = 2240) 3.2 G/DL CALC A/G RATIO (test code = 2234) 1.4 RATIO BILIRUBIN, TOTAL (test code = 2207) <0.2 MG/DL ALKALINE PHOSPHATASE (test code = 2204) 106 U/L AST (test code = 2218) 15 U/L ALT (test code = 2219) 12 U/L Lobito Garcias [facility] [id number] 00:00:00* Test Item Value Reference Range Interpretation Comme nts GLUCOSE (test code = 2217) 90 MG/DL BUN (test code = 2208) 14 MG/DL CREATININE (test code = 2214) 0.77 MG/DL eGFR (2020 CKD-EPI) (test co de = 22402) 96 ML/MIN/1.73 CALC BUN/CREAT (test code = 2235) 18 RATIO SODIUM (test code = 2231) 141 MEQ/L POTASSIUM (test code = 2228) 4.3 MEQ/L CHLORIDE (test code = 2215) 103 MEQ/L CARBON DIOXIDE (test code = 2206) 25 MEQ/L CALCIUM (test code = 2209) 9.6 MG/DL PROTEIN, TOTAL (test code = 2229) 7.6 G/DL ALBUMIN (test code = 2201) 4.4 G/DL CALC GLOBULIN (test code = 2240) 3.2 G/DL CALC A/G RATIO (test code = 2234) 1.4 RATIO BILIRUBIN, TOTAL (test code = 2207) <0.2 MG/DL ALKALINE PHOSPHATASE (test code = 2204) 106 U/L AST (test code = 2218) 15 U/L ALT (test code = 2219) 12 U/L Lobito Garcias [place] [id number] 00:00:00* Test Item Value Reference Range Interpretation Comme nts GLUCOSE (test code = 2217) 90 MG/DL BUN (test code = 2208) 14 MG/DL CREATININE (test code = 2214) 0.77 MG/DL eGFR (2020 CKD-EPI) (test co de = 56845) 96 ML/MIN/1.73 CALC BUN/CREAT (test code = 2235) 18 RATIO SODIUM (test code = 2231) 141 MEQ/L POTASSIUM (test code = 2228) 4.3 MEQ/L CHLORIDE (test code = 2215) 103 MEQ/L CARBON DIOXIDE (test code = 2206) 25 MEQ/L CALCIUM (test code = 2209) 9.6 MG/DL PROTEIN, TOTAL (test code = 2229) 7.6 G/DL ALBUMIN (test code = 2201) 4.4 G/DL CALC GLOBULIN (test code = 2240) 3.2 G/DL CALC A/G RATIO (test code = 2234) 1.4 RATIO BILIRUBIN, TOTAL (test code = 2207) <0.2 MG/DL ALKALINE PHOSPHATASE (test code = 2204) 106 U/L AST (test code = 2218) 15 U/L ALT (test code = 2219) 12 U/L Lobito OntiverosCOMPREHENSIVE METABOLIC [id number] 00:00:00* Test Item Value Reference Range Interpretation Comme nts GLUCOSE (test code = 2217) 90 MG/DL BUN (test code = 2208) 14 MG/DL CREATININE (test code = 2214) 0.77 MG/DL eGFR (2020 CKD-EPI) (test co de = 04107) 96 ML/MIN/1.73 CALC BUN/CREAT (test code = 2235) 18 RATIO SODIUM (test code = 2231) 141 MEQ/L POTASSIUM (test code = 2228) 4.3 MEQ/L CHLORIDE (test code = 2215) 103 MEQ/L CARBON DIOXIDE (test code = 2206) 25 MEQ/L CALCIUM (test code = 2209) 9.6 MG/DL PROTEIN, TOTAL (test code = 2229) 7.6 G/DL ALBUMIN (test code = 2201) 4.4 G/DL CALC GLOBULIN (test code = 2240) 3.2 G/DL CALC A/G RATIO (test code = 2234) 1.4 RATIO BILIRUBIN, TOTAL (test code = 2207) <0.2 MG/DL ALKALINE PHOSPHATASE (test code = 2204) 106 U/L AST (test code = 2218) 15 U/L ALT (test code = 2219) 12 U/L Lobito BrownLTURE, [id number] 00:00:00* Test Item Value Reference Range Interpretation Comme nts CULTURE, URINE (test code = 51009) SPECIMEN NUMBER: [id number] Lobito BrownLTURE, [id number] 00:00:00* Test Item Value Reference Range Interpretation Comme nts CULTURE, URINE (test code = 98225) SPECIMEN NUMBER: [id number] Lobito Lee, [id number] 00:00:00* Test Item Value Reference Range Interpretation Comme nts CULTURE, URINE (test code = 28156) SPECIMEN NUMBER: [id number] Lobito Lee [id number] 00:00:00* Test Item Value Reference Range Interpretation Comme nts CULTURE, URINE (test code = 78527) SPECIMEN NUMBER: [id number] Lobito Lee, [id number] 00:00:00* Test Item Value Reference Range Interpretation Comme nts CULTURE, URINE (test code = 92207) SPECIMEN NUMBER: [id number] Lobito Lee, [id number] 00:00:00* Test Item Value Reference Range Interpretation Comme nts CULTURE, URINE (test code = 97134) SPECIMEN NUMBER: [id number] Lobito Lee, [id number] 00:00:00* Test Item Value Reference Range Interpretation Comme nts CULTURE, URINE (test code = 75558) SPECIMEN NUMBER: [id number] Lobito Lee, [id number] 00:00:00* Test Item Value Reference Range Interpretation Comme nts CULTURE, URINE (test code = 57576) SPECIMEN NUMBER: [id number] Lobito OntiverosSARS-CoV-2 (COVID-19) by RT-PCR (HIGH RISK)2019-12-16 00:00:00* Test Item Value Reference Range Interpretation Comme nts SARS-CoV-2 INTERPRETATION (t est code = 94691) NEGATIVE SOURCE (test code = 15973) NOT SPECIFIED Lobito Garcias [id number] (COVID-19) by RT-PCR (HIGH RISK)2019-12-16 00:00:00* Test Item Value Reference Range Interpretation Comme nts SARS-CoV-2 INTERPRETATION (t est code = 49970) NEGATIVE SOURCE (test code = 85747) NOT SPECIFIED Lobito Garcias [id number] (COVID-19) by RT-PCR (HIGH RISK)2019-12-16 00:00:00* Test Item Value Reference Range Interpretation Comme nts SARS-CoV-2 INTERPRETATION (t est code = 71022) NEGATIVE SOURCE (test code = 84807) NOT SPECIFIED Lobito CastellanosRS-CoV-2 (COVID-19) by RT-PCR (HIGH RISK)2019-12-16 00:00:00* Test Item Value Reference Range Interpretation Comme nts SARS-CoV-2 INTERPRETATION (t est code = 93492) NEGATIVE SOURCE (test code = 41029) NOT SPECIFIED Lobito Ontiveros Notes Date/Time Note Provider Source Lobito Ontiveros [facility]2025-01-23 00:00:00 Lobito Ontiveros [facility]2025-01-08 00:00:00 L[facility]ito [facility]2024-10-01 00:00:00 Lobito [facility]2024-09-22 16:31:39 Written/verbal d/c instructions, [id number] 16:21:14 Callie Singletary is a 48 year old female c/o cough, chest congestion for 2 days , pt rapid talking in complete sentences, no distress T Heydi Toussaint [id number] 16:14:00 [facility] Emergency Department Note Patient Name: Callie Singletary Date of : 1975 48 year old female Treatment [facility] Primary Care Physician: Justice Liang Patient Escorted by: Self [9] Mode of [...] RSV and have her follow-up with the [facility] for results. She remained stable here [...] signed by: Maida Lay DO 02/21/24 1630 [facility]2024-08-01 15:13:29 Chief Complaint Patient presents with Follow-up Went to ER for throat swelling. Needs refill on Oxybutin Yana Guthrie LVN [facility]2024-06-06 09:28:24 Chief Complaint Patient presents with Physical Labs done 08/15/2023 Yana Guthrie LVN [facility]2024-04-02 13:30:39 Chief Complaint Patient presents with Follow-up 1 month follow up. Has cough with dark yellow mucus Yana Guthrie LVN [facility]
[2024-09-21] MEDS ORDERED: ONDANSETRON 4 MG/2 ML VIAL ONE (07:44)
[2024-09-21] MEDS ORDERED: MORPHINE 4 MG/ML SYR ONE (07:44)
[2024-09-21] MEDS ORDERED: NA CHLORIDE 0.9% 1,000 ML ONE (07:44)
[2024-09-21 07:59] LABS: Absolute Basophils 0.1 K/uL (0-0.5); Absolute Eosinophils 0.4 K/uL (0-0.5); Absolute Lymphocytes (CBC) 2.1 K/uL (0.7-4.9); Absolute Monocytes 0.8 K/uL (0.1-1.3); Basophils % 0.8 % (0-1.3); Eosinophils % 3.8 % (0-4.4); Hematocrit 34.5 % (36.0-45.0); Hemoglobin 11.1 g/dL (12.0-15.0); Lymphocytes % 22.1 % (15.3-44.8); MCH 24.1 pg (27.0-35.0); MCHC 32.2 g/dL (32.0-36.0); MPV 8.4 fL (7.6-11.3); Monocytes % 8.7 % (3.3-12.3); Neutrophils % 64.6 % (41.7-73.7); Nucleated Red Blood Cells % 0.1 % (0-0); Platelets 305 thou/uL (152-406); Red Cell Distribution Width 16.3 % (12.1-15.2)
[2024-09-21 08:12] LABS: Anion Gap 8.8 mEq/L (5.0-15.0); Potassium 3.8 mEq/L (3.5-5.1)
--- NOTE | 2024-09-21 09:10 | RAD REPORT ---
EXAMINATION: CT Abdomen Pelvis W Contrast CLINICAL INDICATION: Female, 49 years old. abd pain TECHNIQUE: CT abdomen and pelvis was performed, after the administration of IV contrast, as per [facility]. Axial, sagittal and coronal reconstructions were obtained. One or more of the following dose reduction techniques were used: Automated exposure control, adjustment of the mA and k V according to patient size, and iterative reconstruction. Unless otherwise specified, incidental findings do not require dedicated imaging follow-up. COMPARISON: 11/09/2023 FINDINGS: LOWER CHEST: The visualized lung bases are clear. LIVER: Normal in size and contour. No focal lesion. BILIARY SYSTEM: Status post cholecystectomy. SPLEEN: Normal size. No focal lesion. PANCREAS: No mass, ductal dilation, or pelon-pancreatic fluid. ADRENALS: Normal; no mass. KIDNEYS: Normal size and contour. No hydronephrosis. URINARY BLADDER: Unremarkable. GASTROINTESTINAL TRACT: No evidence of free air, significant intra-abdominal free fluid, bowel obstru ction or abscess. APPENDIX: Normal appendix. LYMPH NODES: No lymphadenopathy. MUSCULOSKELETAL: No acute or suspicious osseous abnormality. ADDITIONAL FINDINGS: Mild fluid distention of the endometrial cavity. Nabothian cysts along the cervi x. Trace fluid in the cul-de-sac. Small right ovarian cysts or follicles. Umbilical and supraumbilical hernias containing fat, with some fat stranding around the hernia sac. IMPRESSION: Umbilical supraumbilical hernias containing fat with some fat stranding around the hernia sac. Correl ate clinically for evidence of reproducibility. No other acute or concerning abnormalities seen in the abdomen or pelvis. Other incidental findings a s above.
[2024-09-21 09:50] LABS: Specific Gravity 1.021 (1.005-1.030); Urine Bilirubin NEGATIVE (Negative); Urine Blood Negative (Negative); Urine Clarity Clear (Clear); Urine Color Light-Yellow (Yellow); Urine Glucose NEGATIVE (Negative); Urine Ketones NEGATIVE (Negative); Urine Microscopic Reflex YN NO UMIC; Urine Nitrite NEGATIVE (Negative); Urine Protein NEGATIVE (Negative); Urine Urobilinogen Normal (Normal); Urine pH 5.5 (5.0-7.0)
--- NOTE | 2024-09-21 10:24 | EDPHYS ---
Physician Documentation [facility] Name: Gifty Singletary Age: 49 yrs Sex: Female : 1975 Arrival Date: 09/21/2024 Time: 06:55 Bed 5 Private MD: DEANN Physician Vineet Reed SENIOR LEAD PROJECT MANAGER: 09/21 10:38 LMP N/A - Irregular menses, Not ha1 Historical: - Allergies: 06:59 No Known Allergies; ll1 - PMHx: 06:59 Asthma; ll1 - PSHx: 06:59 Cholecystectomy; Ligation of fallopian tube; ll1 - Immunization history:: Adult Immunizations up to date. - Infectious Disease History:: Denies. - Social history:: Smoking status: unknown. Vital Signs: 08:59 BP 151 / 47; Pulse 75; Resp 18; Temp 97.8; Pulse Ox 99% on R/A; ph 09:30 BP 128 / 77; Pulse 73; Resp 17 S; Pulse Ox 98% on R/A; ha1 10:36 BP 122 / 72; Pulse 71; Resp 17 S; Pulse Ox 99% on R/A; ha1 MDM: 07:08 Medical Screening Exam initiated david 09/21 08:13 Order name: CBC with Automated Diff EDMS 09/21 08:13 Order name: Basic Metabolic Panel; Complete Time: 09:24 EDMS 09/21 08:13 Order name: Lipase; Complete Time: 09:24 EDMS 09/21 08:13 Order name: Urinalysis w/ reflexes EDMS 09/21 08:13 Order name: Abdomen ; Complete Time: 09:24 EDMS Administered Medications: 07:50 Drug: morphine IVP or IV 4 mg IVP once over 4 mins Route: IVP; Infused Over: 4 mins; ph Site: right antecubital; 08:15 Follow up: Response: No adverse reaction; Pain is decreased; RASS: Alert and Calm (0) ha1 07:50 Drug: Ondansetron IVP 4 mg IVP once; over 2 minutes Route: IVP; Site: right antecubital;ph 08:15 Follow up: Response: No adverse reaction; Marked relief of symptoms ha1 07:50 Drug: NS 0.9% IV 1000 ml IV at 1 bolus Per protocol; to be given as a bolus over 60 ph minutes Route: IV; Rate: 1 bolus; Site: right antecubital; 10:39 Follow up: Response: No adverse reaction; IV Status: Completed infusion; IV Intake: ha1 1000ml Disposition Summary: 09/21/24 10:23 Discharge Ordered Notes: Location: Home ha1 Condition: Stable ha1 Diagnosis - Umbilical hernia without obstruction or gangrene ha1 Discharge Instructions: - Discharge Summary Sheet ha1 - Hernia, Adult ha1 - Umbilical Hernia, Adult ha1 Forms: - Medication Reconciliation Form ha1 - Antibiotic Education ha1 - Prescription Opioid Use ha1 - Patient Portal Instructions ha1 - Leadership Thank You Letter 1 Signatures: Dispatcher [employer] EDVineet Malave MD MD cha Hall, Patricia, RN RN Payton Perkins RN RN [facility] Shell Jacinto RN RN [facility] Corrections: (The following items were deleted from the chart) 09:41 09:40 The patient presents with pain that is acute, david david 09:41 09:40 This 49 yrs old Female presents to ER via Ambulatory with complaints of david Abdominal Pain, Abdominal Swelling, Low Back Pain. david
--- NOTE | 2024-09-21 10:24 | ER ---
Nurse's Notes [facility] Name: Gifty Singletary Age: 49 yrs Sex: Female : 1975 Arrival Date: 09/21/2024 Time: 06:55 Bed 5 Private MD: Diagnosis: Umbilical hernia without obstruction or gangrene Presentation: 09/21 07:04 Initial Sepsis Screen: Does the patient meet any 2 criteria? No. Patient's initial ph sepsis screen is negative. Does the patient have a suspected source of infection? No. Patient's initial sepsis screen is negative. Risk Assessment: Do you want to hurt yourself or someone else? Patient reports no desire to harm self or others. Onset of symptoms was September 21, 2024. 07:04 Acuity: ODILIA 3 ph 08:59 Chief complaint: Patient states: Upper abdominal pain and swelling, states, "Yesterday ph I noticed a lump above my belly button". Coronavirus screen: Vaccine status: Patient reports being unvaccinated. Ebola Screen: No symptoms or risks identified at this time. 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 - Infectious Disease History:: Denies. - Social history:: Smoking status: unknown. Screenin:03 [facility] ED Fall Risk Assessment (Adult) History of falling in the last 3 months, ph including since admission No falls in past 3 months (0 pts) Confusion or Disorientation No (0 pts) Intoxicated or Sedated No (0 pts) Impaired Gait No (0 pts) Mobility Assist Device Used No (0 pt) Altered Elimination No (0 pt) Score/Fall Risk Level 0 - 2 = Low Risk Oriented to surroundings, Maintained a safe environment, Hourly rounding (assess needs \\T\\ fall precautionary measures) done, Used ambulatory aids as needed (educated on \\T\\ assisted with). Abuse screen: Denies threats or abuse. Denies injuries from another. Nutritional screening: No deficits noted. Tuberculosis screening: No symptoms or risk factors identified. Assessment: 07:45 General: Appears in no apparent distress. comfortable, obese, well groomed, Behavior is ph calm, cooperative, appropriate for age, Denies fever. Pain: Complains of pain in abdomen. Neuro: Level of Consciousness is awake, alert, obeys commands, Oriented to person, place, time, situation. Cardiovascular: Capillary refill < 3 seconds in bilateral fingers Patient's skin is warm and dry. Respiratory: Airway is patent Respiratory effort is even, unlabored. GI: Abdomen is round non-distended, Bowel sounds present X 4 quads. Abd is soft X 4 quads Reports upper abdominal pain, constipation, Patient currently denies diarrhea, nausea, vomiting. Derm: Skin is pink, warm \\T\\ dry. 09:31 Reassessment: Patient and/or family updated on plan of care and expected duration. Pain ha1 level reassessed. Patient is alert, oriented x 3, equal unlabored respirations, skin warm/dry/pink. 10:36 Reassessment: Patient and/or family updated on plan of care and expected duration. Pain ha1 level reassessed. Patient is alert, oriented x 3, equal unlabored respirations, skin warm/dry/pink. PAIN 3/10 Patient states feeling better. Patient states symptoms have improved. Vital Signs: 08:59 BP 151 / 47; Pulse 75; Resp 18; Temp 97.8; Pulse Ox 99% on R/A; ph 09:30 BP 128 / 77; Pulse 73; Resp 17 S; Pulse Ox 98% on R/A; ha1 10:36 BP 122 / 72; Pulse 71; Resp 17 S; Pulse Ox 99% on R/A; ha1 ED Course: 06:58 Patient arrived in ED. [id number] 06:58 Arm band placed on Patient placed in an exam room, on a stretcher. ll1 07:03 Christy Reyes, RN is Primary Nurse. ph 07:04 Triage completed. ph 07:08 Vineet Reed MD is Attending Physician. david 07:25 Initial lab(s) drawn, by me, sent to lab. Inserted saline lock: 20 gauge in right ph antecubital area, using aseptic technique. Blood collected. Flushed with 10 mL NS. 08:29 Abdomen In Process Unspecified. EDMS 08:59 Patient has correct armband on for positive identification. Placed in gown. Bed in low ph position. Call light in reach. Side rails up X 1. Pulse ox on. NIBP on. Door closed. Noise minimized. Warm blanket given. 10:37 Provided Education on: FOLLOW UP WITH GENERAL SURGERY . ha1 10:37 No provider procedures requiring assistance completed. IV discontinued, intact, ha1 bleeding controlled, No redness/swelling at site. Pressure dressing applied. Administered Medications: 07:50 Drug: morphine IVP or IV 4 mg IVP once over 4 mins Route: IVP; Infused Over: 4 mins; ph Site: right antecubital; 08:15 Follow up: Response: No adverse reaction; Pain is decreased; RASS: Alert and Calm (0) ha1 07:50 Drug: Ondansetron IVP 4 mg IVP once; over 2 minutes Route: IVP; Site: right antecubital;ph 08:15 Follow up: Response: No adverse reaction; Marked relief of symptoms ha1 07:50 Drug: NS 0.9% IV 1000 ml IV at 1 bolus Per protocol; to be given as a bolus over 60 ph minutes Route: IV; Rate: 1 bolus; Site: right antecubital; 10:39 Follow up: Response: No adverse reaction; IV Status: Completed infusion; IV Intake: ha1 1000ml Medication: 07:03 VIS not applicable for this client. ph Intake: 10:39 IV: 1000ml; Total: 1000ml. ha1 Outcome: 10:23 Discharge ordered by . ha1 10:37 Discharged to home ambulatory, ha1 10:37 Condition: stable 10:37 Discharge instructions given to patient, Instructed on discharge instructions, follow up and referral plans. medication usage, Demonstrated understanding of instructions, follow-up care, medications, Prescriptions given X 1, 10:40 Patient left the ED. ha1 Signatures: Dispatcher [employer] EDVineet Malave MD MD cha Hall, Patricia, RN RN ph Lewis, Lynsay, RN RN [facility] Zuleika Alicea Heidy, RN RN 1
[2024-09-21 10:54] VITALS: TEMP 97.8
[2024-09-21 11:06] VITALS: BP 122/72; O2SAT 99
== END 2024-09-21 10:40 | disposition home or self-care (01) ==
LOC: ER 06:55
DX: K42.9 Umbilical hernia without obstruction or gangrene (principal)
CPT/HCPCS: 96361; 85025; 80048; 36415; 81003; 83690; 74177; 96375; 96374; 99284; Q9967; J2405; J7030

== ENCOUNTER 2024-10-03 07:18 | Day surgery (SDC) | payer OTHER ==
[2024-10-03 07:43] LABS: Absolute Basophils 0.1 K/uL (0-0.5); Absolute Eosinophils 0.4 K/uL (0-0.5); Absolute Lymphocytes (CBC) 2.5 K/uL (0.7-4.9); Absolute Monocytes 0.8 K/uL (0.1-1.3); Absolute Neutrophil 7.3 K/uL (1.8-8.0); Basophils % 0.6 % (0-1.3); Eosinophils % 3.4 % (0-4.4); Hematocrit 35.1 % (36.0-45.0); Hemoglobin 11.4 g/dL (12.0-15.0); Lymphocytes % 22.4 % (15.3-44.8); MCH 23.7 pg (27.0-35.0); MCHC 32.5 g/dL (32.0-36.0); Monocytes % 7.2 % (3.3-12.3); Neutrophils % 66.4 % (41.7-73.7); Nucleated Red Blood Cells % 0.3 % (0-0); Platelets 358 thou/uL (152-406); RBC Red Blood Cell Count 4.81 M/uL (3.86-4.86); Red Cell Distribution Width 16.4 % (12.1-15.2)
[2024-10-03] MEDS ORDERED: Ringers Lactate 1,000 ML IV ONE (07:43)
[2024-10-03 07:56] LABS: Anion Gap 9.9 mEq/L (5.0-15.0); Potassium 3.9 mEq/L (3.5-5.1)
[2024-10-03] MEDS ORDERED: propofoL 200 MG/20 ML VIAL IV ONE (08:03)
[2024-10-03] MEDS ORDERED: FENTANYL CITR 100 MCG/2 ML ONE ×2 (08:03→09:07)
[2024-10-03] MEDS ORDERED: GLYCOPYRROLATE 0.2 MG/ML SYR ONE (08:03)
[2024-10-03] MEDS ORDERED: ROCURONIUM 50 MG/5 ML VIAL IV ONE ×2 (08:03→09:28)
[2024-10-03] MEDS ORDERED: ONDANSETRON 4 MG/2 ML VIAL ONE (08:03)
[2024-10-03] MEDS ORDERED: NEOSTIGMINE 1 MG/ML -10 ML VIAL ONE (08:03)
[2024-10-03] MEDS ORDERED: LIDOCAINE 2% MPF 5 ML VIAL ONE (08:03)
[2024-10-03] MEDS ORDERED: MIDAZOLAM HCL 2 MG/2 ML INJ ONE (08:04)
[2024-10-03] MEDS ORDERED: EPHEDRINE SULF 50 MG/ML VIAL ONE (08:12)
[2024-10-03] MEDS: CEFAZOLIN SODIUM 1 GM/VIAL ONE (08:35)
[2024-10-03] MEDS ORDERED: dexAMETHasone 10 MG/ML VIAL ONE (08:52)
[2024-10-03] MEDS ORDERED: Mastisol Adhesive Liq ONE (09:30)
[2024-10-03] MEDS ORDERED: KETOROLAC 30 MG/ML INJ ONE (09:49)
[2024-10-03] MEDS ORDERED: MEPERIDINE HCL 25 MG/ML SYR ONE (09:51)
--- NOTE | 2024-10-03 09:56 | P.BOP ---
Preoperative diagnosis: incarcerated tender ventral hernia Postoperative diagnosis: same, intrabdominal adhesions Primary procedure: 1. Laparoscopic repair of incarcerated tender ventral hernia with mesh Secondary procedure: 2. Laparoscopic lysis of adhesions Estimated blood loss: <10cc Specimen: sac and content Findings: as above Anesthesia: General Complications: None Implants: ventralex, Maxtac Transferred to: Recovery Room Condition: Good
[2024-10-03] MEDS: HYDROMORPHONE HCL 1 MG/ML INJ ONE ×2 (10:08→10:20)
[2024-10-03 10:37] VITALS: O2SAT 99
[2024-10-03] MEDS ORDERED: CODEINE 30MG/APAP 300MG TAB ONE (11:08)
[2024-10-03] MEDS: NALOXONE HCL 2 MG/2 ML VIAL ONE (11:52)
[2024-10-03 11:56] VITALS: BP 112/74; TEMP 97.4
--- NOTE | 2024-10-03 12:02 | EKG ---
Test Date: 2024-10-03 Test Time: 07:44:05 Cobol Developer: PREO MEASUREMENT RESULTS: Intervals: Rate: 72 MD: 136 QRSD: 82 QT: 384 QTc: 420 [place]: P: 43 MD: 136 QRS: -23 T: 23 INTERPRETIVE STATEMENTS: Normal sinus rhythm Low voltage QRS Borderline ECG Compared to ECG 02/24/2024 21:54:40 Low QRS voltage now present Left-axis deviation no longer present Electronically Signed On 10-03-24 12:01:54 CDT by Smooth Rojas
--- NOTE | 2024-10-03 12:02 | OP ---
Date of Procedure: 10/03/2024 Surgeon: Vladimir Perez MD Preoperative Diagnosis: Incarcerated tender ventral hernia. Postoperative Diagnoses: Incarcerated tender ventral hernia plus intraabdominal adhesions. Procedures: 1. Laparoscopic repair of incarcerated tender ventral hernia with mesh. 2. Laparoscopic lysis of adhesions. Estimated Blood Loss: Less than 10 cc. Anesthesia: General plus local. Specimens: Hernia sac and content. Findings: Patient has an incarcerated omentum through the hernia itself. It is several centimeters cephalad to the umbilical region. There are adhesions present that was removed with the help of Ligangie Sure. Falciform ligament also had to be partially resected. Indications: This is the case of a 49-year-old patient who came to us with a tender incarcerated wally tral hernia. The benefits, alternatives, and risks of laparoscopic possible open repair fully explai lyn with possible mesh, which include, but not limited to, infection, bleeding, damage to adjacent st ructures, anesthesia complication, recurrence, NM, and even . She also understands this may not relieve any symptoms. She might need more than one surgical intervention. She understands pros and cons of mesh. We discussed with her all the pros and cons of it with benefits, alternatives, and ri sks. All the questions answered to her satisfaction and she signed a consent. Description Of Procedure: Patient was brought to the operating room, placed in supine position. Ane sthesia was induced without complication. Abdominal area was prepped and draped in a sterile fashion . Local anesthesia was applied followed by sharp incision of skin in the ventral region. Incision w as carried down until we found the hernia defects. The hernia defect was clear. The hernia content was removed, but there were some adhesions underneath. This was going to have to be done laparoscopi last. Part of the falciform ligament tried to come through the defect itself. We cleaned the fasci al edges, placed back in #1 in [id number] fashion multiple times and since the defect is very th in and weak, we decided just to place the mesh in that region to reinforce the area. So what we did, just through the umbilical incision, we put a Sandeep trocar, obtained pneumoperitoneum and then put a 5 mm trocar to the right and left side of the abdomen. This allowed me to visualize the center, fi lindy adhesions present, I used the LigaSure to remove the adhesions. No enterotomy was done, mobili zed the falciform ligaments. Then, after that, when we have the adhesions cleared, we proceeded to s elect a Ventralex mesh, put it through the umbilical incision, pulled the Sandeep trocar out. Secured the Ventralex in place with MaxTack SorbaFix. The mesh looked nice and flat against the abdominal w all. The straps were removed. The Vicryl #1 in a [id number] fashion was a tie to obtain now ai r seal incision. Then, we went laparoscopic again and further fixated the mesh anteriorly to the ant erior abdominal wall until it was nice and flat. At that moment, I proceeded then to check for the a myles of the lysis of adhesions. No bleeding. No enterotomies. At that moment, I proceeded to deflat e the pneumoperitoneum under direct visualization, removed the trocars, closed the subcutaneous tissu e with 3-0 chromic and the skin in a subcuticular fashion with 3-0 chromic and Steri-Strips on top. Sponge counts and instrument counts were correct. Patient tolerated the procedure well. Patient sen t to Recovery in stable condition. ISAÍAS/ROSA ELENA Voice ID: [id number] Report ID: [id number]
[2024-10-03] MEDS: ONDANSETRON 4 MG/2 ML VIAL ONE (12:11)
--- NOTE | 2024-10-03 12:17 | DS ---
Diagnoses: Incarcerated tender ventral hernia. Intraabdominal adhesions. Procedures: Laparoscopic repair of incarcerated tender ventral hernia with mesh, and laparoscopic ly sis of adhesions. Condition: Stable. Disposition: Home. Activity: As tolerated. No heavy lifting. Discharge Instructions: Follow up in my office in 1 week. Call for appointment at [phone]. Keep a myles dry for 48 hours, then may shower. Keep Steri-Strip intact. ISAÍAS/ROSA ELENA Voice ID: [id number] Report ID: [id number]
== END 2024-10-03 12:22 | disposition home or self-care (01) ==
LOC: OR 07:18
PROVIDERS: ATTEND Surgery
PROC: 0WUF4JZ Supplement Abdominal Wall with Synthetic Substitute, Percutaneous Endoscopic Approach (ICD-10-PCS; principal; 2024-10-03 10:45)
DX: K43.6 Other and unspecified ventral hernia with obstruction, without gangrene (principal); I10 Essential (primary) hypertension; J45.909 Unspecified asthma, uncomplicated; E78.00 Pure hypercholesterolemia, unspecified
CPT/HCPCS: 49594; 93005; 85025; 80048; 36415; 81025; 88302; J2704; J2710; J2310; J2003; J2250; J3010 ×2; J1100; J2175; J1171 ×2; J2405 ×2; J7120; J0690